=== PATIENT | female | born 2005 | race Caucasian/White ===

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

== ENCOUNTER 2024-04-25 16:44 | Emergency (ER) | payer OTHER, MEDICAID, SELFPAY ==
--- NOTE | ~2024-04-25 | US_ITS ---
CLINICAL HISTORY: back pain ?pyelo US Renal Comparison: None Findings: Right kidney normal size and echotexture, 10.2 cm length. Left kidney normal size and echotexture, 10.1 cm length. No hydronephrosis of either kidney. Normal color Doppler IMPRESSION: 1. Unremarkable kidneys bilaterally. This document has been electronically signed by: Antwon Joe MD on 04/25/2024 19:21:39
[2024-04-25 17:29] VITALS: BP 132/84; PULSE 96; RESP 18; TEMP 36.8; O2SAT 100; BMI 21.2
--- NOTE | 2024-04-25 17:29 | ED.FEMALEGU ---
HPI - Female Genitourinary General Chief complaint: Urogenital-Female Stated complaint: uti Time Seen by Provider: 04/25/24 22:35 Source: patient and RN notes reviewed Mode of arrival: ambulatory Limitations: no limitations History of Present Illness ED Provider: [facility] Narrative: 18 year old female presents for evaluation of vaginal discharge and left flank pain She reports having yellow/green discharge since December 2023. She reports malodorous discharge without vaginal pruritis or dysuria She is not currently sexually active. The last time she had intercourse was in December 2023. She was seen at an urgent care on 03/29/24 and was treated for a UTI with nitrofurantoin which didn't resolve her symptoms. She returned to urgent care on 04/06/24 and was prescribed fluconazole and metronidazole for bacterial vaginosis. She began taking metronidazole yesterday, 04/25 Related Data Home Medications ?Medication ?Instructions ?Recorded ?Confirmed azithromycin 250 mg tablet 250 mg PO DIRECTED 12/17/23 Previous Rx's ?Medication ?Instructions ?Recorded ondansetron HCl 4 mg tablet 4 mg PO Q8H PRN nausea and 03/16/23 vomiting 4 days #14 tabs doxycycline hyclate 100 mg tablet 100 mg PO BID #28 tabs 04/26/24 Allergies Allergy/AdvReac Type Severity Reaction Status Date / Time No Known Allergies Allergy Verified 04/25/24 17:32 Review of Systems Constitutional: Constitutional: Denies chills and Denies fever(s) Gastrointestinal: Gastrointestinal: Reports abdominal pain, Reports bloating, Denies nausea and Denies vomiting Genitourinary: Genitourinary: Denies hematuria, Denies dysuria, Reports pelvic pain, Reports flank pain, Reports vaginal discharge (yellow/green), Reports vaginal odor and Denies vaginal pruritus PMFSH Past Medical History Medical History No known health problems Social History Social History Alcohol intake: never Patient Tobacco Use Status: Current someday Tobacco user Smoked in Last 30 Days: No Use of substances other than those prescribed or required for medical reasons: Yes Substance Use Type: Marijuana Advance Directives: No Advance Directives Information Provided: No Patient : No Physical Exam Vital Signs: Vital Signs: Last Vital Signs Temp 98.3 F 04/25/24 17:29 Pulse 96 04/25/24 17:29 Resp 18 04/25/24 17:29 BP 132/84 04/25/24 17:29 Pulse Ox 100 04/25/24 17:29 O2 Del Method Room Air 04/25/24 17:29 BMI result Body Mass Index 21.2 Const: General: healthy appearing, comfortable, no acute distress, alert and awake Nutritional Appearance: well nourished Orientation/consciousness: patient oriented x3 HEENT: Head: Yes normocephalic and Yes atraumatic Eyes: Alignment and Position: alignment normal Eyelids: Yes eyelids normal Conjunctivae: conjunctivae normal Sclerae: sclerae normal Corneas: corneas normal Pupils: Equal, round and reactive pupils present EOM: EOMs intact bilaterally Resp: Effort & Inspection: normal respiratory effort and able to speak in complete sentences GI: Inspection: No distended Palpation (GI): Soft to palpation, not firm, nontender, no guarding and not rigid : Other: Yellow discharge present from cervix. Cervix is nonerythematous. Cervical motion tenderness present. No masses palpated on bimuanal exam. CVA tenderness to left flank. Neuro: General: patient oriented x3 Cranial nerves: Yes Equal, round and reactive pupils present and Yes Bilaterally intact EOM present Cognition (Neuro): normal cognition Course Course Course Narrative: This is a Rapid Medical Exam performed in triage by Cora Rubi PA-C. Full HPI, ROS and PE to be performed by primary ED provider. 18-year-old female presenting to the ED c/o dysuria, incomplete bladder emptying, back pain & mucsy vaginal d/c (green). States has been on Abx recently for same and sx not going away. Admits had STI testing which was negative. Currently on Flagyl PE: abd soft & nontender, +L CVAT Plan: Labs, UA, STI testing, US Medications Administered Discontinued Medications Generic Name Dose Route Start Last Admin Trade Name Freq PRN Reason Stop Dose Admin Ceftriaxone Sodium 500 mg/ 0 mg 04/25/24 23:34 04/26/24 00:00 Lidocaine HCl 1 ml IM 04/25/24 23:35 1 kit ONCE ONE Administration Doxycycline Monohydrate 100 mg 04/25/24 23:34 04/26/24 00:00 Doxycycline Monohydrate 100 Mg Capsule PO 04/25/24 23:35 100 mg ONCE ONE Administration Medical Decision Making Medical Decision Making [facility] Narrative: 18-year-old female presents for evaluation of pelvic pain with vaginal discharge. She was previously been treated for BV, candidiasis and a UTI in the last few weeks. It does not seem like she was compliant with her medications as she was prescribed the Flagyl over to cyst. It is unclear if she was compliant with her nitrofurantoin. However given that she has been on multiple treatments despite not having any pelvic exam, pelvic examination was performed by Lucita Henderson under my supervision. Clinically the patient has cervical motion tenderness with discharge concerning for PID and she will be treated accordingly. I discussed the importance of taking all the medication with the patient. She is not septic, she has no adnexal tenderness or masses to suggest tubo-ovarian abscess. She was stable for discharge at this time Differential Diagnosis Differential Diagnoses: The differential diagnosis associated with the presentation includes Pelvic inflammatory disease Chlamydia Gonorrhea Bacterial vaginosis Trichomonas Cystitis Lab Data [facility] Lab Attestation statement: I reviewed the patient's lab results. No leukocytosis or anemia. Normal platelet count. No electrolyte abnormalities. Urinalysis not indicative of UTI 04/25/24 17:54 04/25/24 17:54 Labs: Lab Results 04/25/24 Range/Units 17:54 WBC 10.8 (4.8-10.8) X10*3/uL RBC 4.55 (4.20-5.50) X10*6/uL Hgb 13.6 (12.0-16.0) g/dl Hct 40.7 (37.0-47.0) % MCV 89.5 (80.0-98.0) fL MCH 29.9 (27.0-33.0) pg MCHC 33.4 (31.0-35.0) g/dl RDW 11.8 (11.0-16.0) % Plt Count 320 (160-400) X10*3/uL MPV 8.9 L (9.4-12.3) fL Immature Gran % (Auto) 0.3 (0.0-0.4) % Neut % (Auto) 77.5 H (45-73) % Lymph % (Auto) 17.0 L (20-40) % [place] % (Auto) 4.1 (2-11) % Eos % (Auto) 0.5 (0-4) % Baso % (Auto) 0.6 (0-2) % Lymph # (Auto) 1.8 (1.2-4.9) X10*3/uL [place] # (Auto) 0.4 (0.1-1.2) X10*3/uL Eos # (Auto) 0.1 (0.0-0.4) X10*3/uL Baso # (Auto) 0.1 (0.0-0.2) X10*3/uL Abs Immat Gran (auto) 0.03 (0.00-0.03) X10*3/uL Absolute Neuts (auto) 8.4 H (2.0-8.3) x10*3/uL Absolute Nucleated RBC 0.000 (0.0-0.012) X10*3/uL Nucleated RBC % (auto) 0.0 (0.0-0.2) /100WBC Sodium 139 (135-145) mmol/L Potassium 3.9 (3.3-5.1) mmol/L Chloride 104 (96-108) mmol/L Carbon Dioxide 26 (22-29) mmol/L Anion Gap 13 (12-20) BUN 9 (9-16) mg/dL Creatinine 0.70 (0.5-1.4) mg/dL Estim Creat Clear Calc 106.9 Estimated GFR > 60 Random Glucose 111 (60-115) mg/dL Calcium 9.5 (8.4-10.2) mg/dL Magnesium 1.9 (1.6-2.6) mg/dL Total Bilirubin 0.8 (0.0-1.0) mg/dL Direct Bilirubin 0.3 (0.0-0.5) mg/dL AST 33 H (5-31) U/L ALT 37 H (0-31) U/L Alkaline Phosphatase 81 (39-117) U/L Total Protein 7.8 (6.5-8.0) g/dL Albumin 4.3 (3.5-5.0) g/dL Lipase 20 (8-78) U/L Urine Color Yellow Urine Appearance Clear Urine pH 7.0 (5.0-9.0) Ur Specific [place] 1.020 (1.005-1.025) Urine Protein Negative (Neg-Trace) mg/dL Urine Glucose (UA) Negative (Negative) mg/dL Urine Ketones Negative (Negative) mg/dL Urine Blood Negative (Negative) Urine Nitrite Negative (Negative) Ur Leukocyte Esterase Trace H (Negative) Urine RBC 0-2 (0-2) /HPF Urine WBC 0-5 (0-5) /HPF Ur Squamous Epith Cells 0-2 (0-2) /HPF Urine Bacteria None Seen (None Seen) Hyaline Casts 0-2 (0-2) /LPF Urine Test NEGATIVE (NEGATIVE) Discharge Plan Discharge Clinical Impression: Acute pelvic inflammatory disease (PID) Patient Disposition: Home, Self-Care Instructions: Pelvic Inflammatory Disease (ED) Additional Instructions: Your history exam is most consistent with pelvic inflammatory disease. I recommend that you finish the metronidazole that you were prescribed You were given ceftriaxone 500 mg IM injection which is a 1 time dose. Take doxycycline twice daily for the next 2 weeks You should abstain from sexual intercourse until you completely antibiotics Follow-up with your primary doctor as well as OBGYN Return for new or worsening symptoms Prescriptions: New doxycycline hyclate 100 mg tablet 100 mg PO BID Qty: 28 0RF No Action ondansetron HCl 4 mg tablet 4 mg PO Q8H PRN (Reason: nausea and vomiting) 4 Days Qty: 14 0RF azithromycin 250 mg tablet 250 mg PO DIRECTED Referrals: Franyd Ramirez MD [Physician] - (PID) Print Language: Moroccan
[2024-04-25 18:08] LABS: MANUAL DIFF FLAG NO
[2024-04-25 18:09] LABS: Basophils Absolute Auto 0.1 X10*3/uL (0.0-0.2); Basophils Percent Auto 0.6 % (0-2); Eosinophils Absolute Auto 0.1 X10*3/uL (0.0-0.4); Eosinophils Percent Auto 0.5 % (0-4); Hematocrit 40.7 % (37.0-47.0); Hemoglobin 13.6 g/dl (12.0-16.0); Imm Gran Abs Auto 0.03 X10*3/uL (0.00-0.03); Imm Gran Pct Auto 0.3 % (0.0-0.4); Lymphocytes Absolute Auto 1.8 X10*3/uL (1.2-4.9); Mean Corpuscular HGB Conc 33.4 g/dl (31.0-35.0); Mean Corpuscular Hemoglobin 29.9 pg (27.0-33.0); Mean Corpuscular Volume 89.5 fL (80.0-98.0); Mean Platelet Volume 8.9 fL (9.4-12.3); Monocytes Absolute Auto 0.4 X10*3/uL (0.1-1.2); Monocytes Percent Auto 4.1 % (2-11); Neutrophils Absolute Auto 8.4 x10*3/uL (2.0-8.3); Neutrophils Percent Auto 77.5 % (45-73); Platelet Count 320 X10*3/uL (160-400); Red Blood Count 4.55 X10*6/uL (4.20-5.50); Red Cell Distribution Width 11.8 % (11.0-16.0); White Blood Count 10.8 X10*3/uL (4.8-10.8)
[2024-04-25 18:11] LABS: Appearance Urine Clear; Color Urine Yellow; Glucose Urine UA Negative (Negative); Leukocyte Esterase Urine Trace (Negative); Nitrite Urine Negative (Negative); UMIC TRIGGER UACC YES; Urine Blood Negative (Negative); Urine Ketones Negative (Negative); Urine Protein Negative (Neg-Trace)
[2024-04-25 18:12] LABS: UPreg QC Valid YES; Urine Pregnancy NEGATIVE (NEGATIVE)
[2024-04-25 18:16] LABS: Bacteria Urine None Seen (None Seen); Hyaline Casts Urine 0-2 /LPF (0-2); RBC Urine 0-2 /HPF (0-2); Squamous Epithelial Cell Urine 0-2 /HPF (0-2); WBC Urine 0-5 /HPF (0-5)
[2024-04-25 18:24] LABS: Albumin Level 4.3 g/dL (3.5-5.0); Alkaline Phosphatase 81 U/L (39-117); Anion Gap 13 (12-20); Aspartate Amino Transferase 33 U/L (5-31); Bilirubin Direct 0.3 mg/dL (0.0-0.5); Bilirubin Total 0.8 mg/dL (0.0-1.0); Blood Urea Nitrogen 9 mg/dL (9-16); Calcium 9.5 mg/dL (8.4-10.2); Carbon Dioxide 26 mmol/L (22-29); Chloride 104 mmol/L (96-108); Creatinine Clr Calc Pharmacy 106.9; Estimated Glomerular Filt Rate > 60; Glucose Random 111 mg/dL (60-115); Lipase 20 U/L (8-78); Magnesium 1.9 mg/dL (1.6-2.6); Potassium 3.9 mmol/L (3.3-5.1); Sodium 139 mmol/L (135-145); Total Protein 7.8 g/dL (6.5-8.0)
[2024-04-25 18:35] LABS: Alanine Aminotransferase 37 U/L (0-31)
--- OUTSIDE RECORDS SUMMARY | 2024-04-25 20:46 | XMS_ITS | Encounter Summary ---
Author Organization [employer] Address [address] [place] [address] Care Team Providers Care Wax Specialist Name Role Phone Marilia Castillo MD Primary Care Provider [phone] Reason for Visit * Reason Onset Date Comments Med Refill 07/01/2023 Encounter Details Date Type Department Care Team (Late st Contact Info) Description 07/01/2023 Refill [facility] [address] [place] [address] Maggie Gonzalez MD [address] [place], [place] [phone] Social History Tobacco Use Types Packs/Day Years Used Date Smoking Tobacco: Never Passive Smoke Exposure: Never Smokeless Tobacco: Never Alcohol Use Standard Drinks/Week Comments Never 0 (1 standard drink = 0.6 oz pur e alcohol) Depression Answer Date Recorded Patient Health Questionnaire-9 Score 0 03/27/2023 Patient Health Questionnaire-9 Score 0 03/27/2023 Last PHQ-9: Questionnaire Data Not on file 0 03/27/2023 Housing Stability Answer Date Recorded What is your housing situation today? I have radha fatima 12/30/[address] you li ve. Do you have problems with any of the following? None of the above 12/30/2022 Food Insecurity Answer Date Recorded Within the past 12 months, y ou worried that your food would run out before you got money to buy more: Never True 12/30/2022 Within the past 12 months,th e food you bought just didn't last and you didn't have enough money to get more: Never True Transportation Answer Date Recorded In the past 12 months, has l ack of transportation kept you from medical appts, meetings, work or from getting things needed for daily living? No 12/30/2022 Utilities Answer Date Recorded In the past 12 months, has t he electric, gas, oil or water company threatened to shut off services in your home? No 12/30/2022 Depression Answer Date Recorded Patient Health Questionnaire-2 Score 0 03/27/2023 Comments Unknown Sex and Gender Information Value Date Recorded Sex Assigned at Female 12/05/2022 1:28 PM EDT Legal Sex Female 1:24 PM EDT Gender Identity Female 12/05/2022 1:28 PM EDT Sexual Orientation Don't know 01/01/2023 2: 23 PM EDT documented as of this encounter Plan of Treatment Upcoming Encounters Date Type Department Care Team (Late st Contact Info) Description 05/17/2024 1:00 PM EDT Office Visit [facility] [address] [place] [address] Marilia Castillo MD [address] [place] [address] documented as of this encounter Visit Diagnoses Not on filedocumented in this encounter Additional Health Concerns Assessment Noted Time PHQ-9 Depression Total Score: 0 03/27/19 9:28 AM EST documented as of this encounter Care Teams Wax Specialist Relationship Specialty Start Date End Date Marilia Castillo MD [address] [place] [id number] PCP - General Family Medicine 03/27/23 documented as of this encounter
--- OUTSIDE RECORDS SUMMARY | 2024-04-25 20:46 | XMS_ITS | Encounter Summary ---
Author Organization [facility] Address [address] [place] [phone] Phone Care Team Providers Care Vice Principal Name Role Phone Tiffanie Caputo NP Primary Care Provider Jane horton Encounter Details Date Type Department Care Team (Late st Contact Info) Description 06/25/2013 Documentation [facility] Family Medicine [address] [place] [address] Family Medicine, Physician [facility] [address] Social History Tobacco Use Types Packs/Day Years Used Date Smoking Tobacco: Never Assessed Comments Unknown Sex and Gender Information Value Date Recorded Sex Assigned at Not on file Legal Sex Female 5:15 PM EDT Gender Identity Not on file Sexual Orientation Not on file documented as of this encounter Plan of Treatment Not on file documented as of this encounter Visit Diagnoses Not on filedocumented in this encounter Care Teams Vice Principal Relationship Specialty Start Date End Date Tiffanie Caputo NP PCP - General 10/18/16 06/19/22 documented as of this encounter
--- OUTSIDE RECORDS SUMMARY | 2024-04-25 20:46 | XMS_ITS | Encounter Summary ---
Author Organization [facility] Address [address] [place] [address] Phone Care Team Providers Care Engineer Technical Staff Name Role Phone Tiffanie Caputo NP Primary Care Provider Jane horton Encounter Details Date Type Department Care Team (Late st Contact Info) Description 07/28/2009 Documentation [facility] Family Medicine [address] [place] [address] Family Medicine, Physician [address] [place] [address] Social History Tobacco Use Types Packs/Day Years [...] on filedocumented in this encounter Care Teams Engineer Technical Staff Relationship Specialty Start Date End Date Tiffanie Caputo NP PCP - General 10/18/16 06/19/22 documented as of this encounter
--- OUTSIDE RECORDS SUMMARY | 2024-04-25 20:46 | XMS_ITS | Encounter Summary ---
Author Organization [facility] Address [address] [place] [address] Phone Care Team Providers Care Early Breastfeeding Care Specialist Name Role Phone Tiffanie Caputo [employer] Primary Care Provider Jane horton Encounter Details Date Type Department Care Team (Late st Contact Info) Description 10/24/2016 Conversion Encounter [facility] - [address] [address] Social History Tobacco Use Types Packs/Day Years Used Date Smoking Tobacco: Never Comments:Never smoker Comments Unknown Sex and Gender Information Value Date Recorded Sex Assigned at Not on file Legal Sex Female 5:15 PM EDT Gender Identity Not on file Sexual Orientation Not on file documented as of this encounter Plan of Treatment Not on file documented as of this encounter Visit Diagnoses Not on filedocumented in this encounter Care Teams Early Breastfeeding Care Specialist Relationship Specialty Start Date End Date Tiffanie Caputo NP PCP - General 10/18/16 06/19/22 documented as of this encounter
--- OUTSIDE RECORDS SUMMARY | 2024-04-25 20:46 | XMS_ITS | Clinical Summary ---
Author Organization [employer] Address [address] [facility] 7[address] [place] [address] Care Team Providers Care Drawer In Name Role Phone Marilia Castillo MD Primary Care Provider [phone] Allergies Active Allergy Reactions Criticality Noted Date Comments Other 12/04/2016 Cat dander, dog dander, feathers, mold, ragweed, and rabbits Medications tretinoin (Retin-A) 0.025 % cream Apply topically at bedtime. 45 g 2 4 05/21/19 25 Active valACYclovir (Valtrex) 1 g tablet Take 2 tablets two times for 1 day at earliest sign and symptom onset 12 tablet 1 4 Active FLUoxetine (PROzac) 10 MG capsule 4 Active triamcinolone (Kenalog) 0.1 % creamIndications :Insect bite of ankle, unspecified laterality, initial encounter Apply to affected area BID till improved. 30 g 4 Active benzoyl peroxide 5 % gelIndications:A cne vulgaris Apply topically 2 times daily. 60 g 2 4 09/08/19 25 Active Active Problems Problem Noted Date Diagnosed Date Pertussis exposure 12/16/2023 Assessment & Plan (12/16/2023 10:43 AM EDT): Reports exposure to Pertussis. Will treat with abx empirically. -sent off antigen testing. -prescribed Azithromycin 500 mg BID the first day and then once daily till course completed. -recommended tea, honey and vics for coughing/soothing throat. Acute upper respiratory infection 12/16/2023 Assessment & Plan (12/16/2023 10:43 AM EDT): COVID, Flu and Strep negative. Reports exposure to Pertussis. Will treat with abx empirically. No evidence of respiratory distress. Symptoms mild. No evidence of dehydration. -prescribed Azithromycin 500 mg BID the first day and then once daily till course completed. -Supportive care advised. -Isolation recommendations discussed. -note given for work/school. -ER precautions discussed. -Seek medical attention for worsening symptoms. 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 Valacyclovir 2 g bid for 1 day at earliest symptom onset. If it is refractory, will change to suppressive medication. Fatigue 03/28/2023 Assessment & Plan (07/02/2023 9:50 AM EDT): - check lab Assessment & Plan (03/28/2023 11:20 AM EST): - check lab Acne 03/28/2023 Assessment & Plan (07/02/2023 10:28 AM EDT): - seen in Derm clinic and prescribed OCP and tretinoin. - upcoming follow up appointment in August 2023, will request a sooner appt Assessment & Plan (03/28/2023 11:20 AM EST): - refer to Derm clinic Hair thinning 03/28/2023 Assessment & Plan (07/02/2023 10:28 AM EDT): - following with Derm clinic Assessment & Plan (03/28/2023 11:21 AM EST): - no bald spots or scarring - continue well-balanced diet - use hypoallergenic hair care product - check thyroid funciton - refer to derm clinic Irregular menstruation 03/28/2023 Assessment & Plan (07/02/2023 10:30 AM EDT): - she is not overweight, but possible PCOS - 04/24/23 Pelvic US normal - she was seen in Derm clinic, and started on OCP. Patient self-discontinued it. Assessment & Plan (03/28/2023 11:23 AM EST): - she is not overweight, but possible PCOS - check thyroid function test - consider further evaluation with pelvic US Encounters Date Type Department Care Team Description 02/15/2024 Refill [facility] [address] [place], [place] [phone] Maggie Gonzalez MD from Last 3 Months Immunizations Name Administration Dates Next Due DTaP 05/19/2006 DTaP / Hep B / IPV 04/25/2005,02/12/2005, 005 DTaP, 5 pertussis antigens 01/19/2009,,04/25/2005,02/12,2004 HPV 9-Valent 08/31/2020, 7,12/22/2015,10/16,01/19/2009 HPV, Quadrivalent 08/31/2020, 7,12/22/2015,10/16,01/19/2009 Hep A, Unspecified 07/20/2013,07/30/2010 Hep A, ped/adol, 2 dose 07/20/2013,07/30/2010 Hep B, Adolescent or Pediatric 04/25/2005,2004,2004 Hep B, adult 07/28/2023,06/30/2023 Hib (PRP-OMP) 02/24/2009, 6,02/12/2005,12/13 Hib (PRP-T) 01/28/2006, 6,02/12/2005,12/13 IPV 01/19/2009, 9,04/25/2005,02/12,2004 Influenza injectable quadriv alent IIV4 with preservative 12/22/2015 Influenza injectable quadriv alent preservative free 12/16/2018,11/30/2013 Influenza, IIV3, injectable 12/16/2018,1 ,02/24/2009,12/14,01/28/2006 MMR 01/19/2009,10/25/2005 MMRV 01/19/2009 Meningococcal ACWY, unspecified 10/17/2015 Meningococcal MCV4P ACYW-135 10/17/2015 Novel Burrejejw-N2P0-02, all formulations 02/24/2009,01/19/2009 Pneumococcal Conjugate PCV 13 01/19/2009 ,04/25/2005,02/12/2005,12/13 Pneumococcal Conjugate PCV 7 01/28/2006, 04/25/2005,02/12/2005,12/13 Tdap 08/31/2020,10/17/2015 Varicella 01/19/2009,10/25/2005 Social History Tobacco Use Types Packs/Day Years Used Date Smoking Tobacco: Never Passive Smoke Exposure: Never Smokeless Tobacco: Never Tobacco Cessation:Counseling Given: Not Answered Alcohol Use Standard Drinks/Week Comments Never 0 [...] Patient Health Questionnaire-2 Score 0 03/27/2023 Comments No Sex and Gender Information Value Date Recorded Sex Assigned at Female 12/05/2022 1:28 PM EDT Legal Sex Female 1:24 PM EDT Gender Identity Female 12/05/2022 1:28 PM EDT Sexual Orientation Don't know 01/01/2023 2: 23 PM EDT Last Filed Vital Signs Vital Sign Reading Time Taken Comments Blood Pressure 114/71 12/16/2023 10:28 AM EDT Pulse 82 12/16/2023 10:28 AM EDT Temperature 36.4 ??C (97.6 ??F) 12/16/2023 10:28 AM E DT Respiratory Rate 20 12/16/2023 10:28 AM EDT Oxygen Saturation 100% 12/16/2023 10:28 AM EDT Inhaled Oxygen Concentration - - Weight 55.8 kg (123 lb) 12/16/2023 10:28 AM EDT Height 162.6 cm (5' 4 ) 12/16/2023 10:28 AM EDT Body Mass Index 21.11 12/16/2023 10:28 AM EDT Plan of Treatment Upcoming Encounters Date Type Department Care Team (Late st Contact Info) Description 05/17/2024 1:00 PM EDT Office Visit [facility] [address] [place] [address] Marilia Castillo MD [address] [place] [address] Health Maintenance Due Date Last Done Comments Fluoride Varnish 06/11/2005 Alcohol/Substance Use Screening 2016 COVID-19 Vaccine ( season) 2023 Influenza Vaccine (#1) 2023 9, 12/16/2018, 12/22/2015, Additional history exists SDOH Screening 03/19/2024 03/19/2023 Depression Screening 03/27/2024 03/27/2023, 03/27/19 24 Chlamydia and Gonorrhea Screening 09/28/2024 09/29/2023, 03/27/2023 Family Planning (PISQ) 09/30/2024 10/01/2023 Tobacco Screening 12/15/2024 12/16/2023 DTaP/Tdap/Td Vaccines (8 - Td or Tdap) 08/31/2030 08/31/2020, 10/17/2015, 01/19/2009, Additional history exists Zoster Vaccines (1 of 2) 2054 RSV Patients and Patients Aged 60 years or older (1 - 1-dose 75+ series) 10/12/2079 IPV Vaccines Completed 01/19/2009, 01/08, 04/25/2005, Additional history exists MMR Vaccines Completed 01/19/2009, 01/08, 10/25/2005 Pneumococcal Vaccine: Pediatrics (0 to 5 Years) and At-Risk Patients (6 to 49) Years) Completed 01/19/2009, 01/28/2006, 04/25/2005, Additional history exists Varicella Vaccines Completed 01/19/2009, 1 03/21/2008, 10/25/2005 HIB Vaccines Completed 02/24/2009, 01/09, 01/28/2006, Additional history exists Hepatitis A Vaccines Completed 07/20/2013, 07/20/2013, 07/30/2010, Additional history exists Meningococcal Vaccine Aged Out 10/17/2015, 016 No longer eligible based on patient's age to complete this topic HPV Vaccines Completed 08/31/2020, 08/09, 04/25/2016, Additional history exists HIV Screening Completed 03/27/2023 Hepatitis C Screening Completed 03/27/2023 Hepatitis B Vaccines Completed 07/28/2023, 06/30/2023, 04/25/2005, Additional history exists RSV under 20 months Aged Out No longe r eligible based on patient's age to complete this topic Rotavirus Vaccines Aged Out No longer eligible based on patient's age to complete this topic Procedures Procedure Name Priority Date/Time Associated Diagnosis Comments CHLAMYDIA/N. GONORRHOEAE RNA, TMA, UROGENITAL Routine 09/29/2023 5:50 PM EDT Missed periods HEPATITIS C AB W/REFL TO HCV RNA, QN, PCR Routine 03/27/2023 10:37 AM EST Routine screening for STI (sexually transmitted infection) HIV 1/2 ANTIGEN/ANTIBODY, FOURTH GENERATION W/RFL Routine 03/27/2023 10:37 AM EST Routine screening for STI (sexually transmitted infection) from Last 3 Months or Most Recently Relevant to Health Maintenance Results * Chlamydia/N. Gonorrhoeae RNA, TMA, Urogenitial (09/29/2023 5:50 PM EDT) CT PCR NOT DETECTED Not Detect. [facility] Comment:A not detected test result does not exclude the possibilityof infection because test results can be affected byimproper specimen collection, concurrent antibiotic therapy,or the number of organisms in the specimen which may bebelow the sensitivity of the test. As with many diagnostictests, results from the Xpert CT/NG assay should beinterpreted in conjunction with other laboratory andclinical data available to the clinician.Xpert CT/NG performance has not been evaluated in patientsless than 14 years of age. The assay should not be used forthe evaluationof suspected sexual abuse or for other medico-legalindications. Additional testing is recommended in anycircumstance when false positive or false negative resultscould lead to adverse medical, social or psychologicalconsequences. NG PCR NOT DETECTED Not Detect. [facility] Comment:A not detected test result does not exclude the possibilityof infection because test results can be affected byimproper specimen collection, concurrent antibiotic therapy,or the number of organisms in the specimen which may bebelow the sensitivity of the test. As with many diagnostictests, results from the Xpert CT/NG assay should beinterpreted in conjunction with other laboratory andclinical data available to the clinician.Xpert CT/NG performance has not been evaluated in patientsless than 14 years of age. The assay should not be used forthe evaluationof suspected sexual abuse or for other medico-legalindications. Additional testing is recommended in anycircumstance when false positive or false negative resultscould lead to adverse medical, social or psychologicalconsequences. Swab (Vaginal Swab) 09/29/2023 5:50 PM EDT 09/30/2023 1:50 PM EDT Narrative [facility] - 09/30/2023 1:51 PM EDT Vaginal us Katelyn Veloz MD LAB MICROBIOLOGY - GENERAL OR DERABLES Final Result Performing Organization Address [facility] Co de Phone Number [facility] [address] [place] [phone] * Hepatitis C Antibody with Reflex to HCV, RNA, Quantitative, Real-Time PCR (03/27/2023 10:37 AM EST) Hepatitis C Antibody Nonreactive Nonreactive [facility] Comment:Antibodies to HCV no t detected; does not exclude early acuteHCV infection. Blood Venous blood specimen / Unknown 03/27/2023 10:37 AM EST 03/27/2023 11:48 AM EST us Marilia Castillo MD LAB BLOOD ORDERABLES Final Resul t Performing Organization Address [facility] Co de Phone Number [facility] [address] [place] [phone] * HIV-1/2 Antigen and Antibodies, Fourth Generation, with Reflexes (03/27/2023 10:37 AM EST) HIV AB/AG Nonreactive Nonreactive [facility] Comment:HIV-1 p24 Ag and/or HIV-1/HIV-2 Ab not detected.A test result that is nonreactive does not exclude thepossibility of exposure to or infection with HIV-1 and/orHIV-2. Nonreactive results in this assay for individualswith prior exposure to HIV-1 and/or HIV-2 may be due toantigen and antibody levels that are below the limit ofdetection of this assay.The [employer] HIV Ag/Ab Combo assay result andsupplemental assay results should be interpreted inconjunction with the patient's clinical presentation,history and other laboratory results. If the results areinconsistent with clinical evidence, additional testing issuggested to confirm the result. Blood Venous blood specimen / Unknown 03/27/2023 10:37 AM EST 03/27/2023 11:48 AM EST Marilia Castillo MD LAB BLOOD ORDERABLES Final Resul t [facility] [address] [place] [phone] [phone] from Last 3 Months or Most Recently Relevant to Health Maintenance Insurance [facility] , [address] [place], [place] [id number] [place] [address] Care Teams Drawer In Relationship Specialty Start Date End Date Marilia Castillo MD [address] [place] [phone] PCP - General Family Medicine 03/27/23
--- OUTSIDE RECORDS SUMMARY | 2024-04-25 20:46 | XMS_ITS | Encounter Summary ---
Author Organization [employer] Address [address] [facility] [address] [place] [address] Care Team Providers Care Crossbar Switch Adjuster Name Role Phone Marilia Castillo MD Primary Care Provider [phone] Reason for Visit * Reason Comments Med Refill Encounter Details Date Type Department Care Team ([facility] st Contact Info) Description 02/15/2024 Refill [facility] [address] [place] [address] Maggie Gonzalez MD [address] [place], [place] [phone] Social History Tobacco Use Types Packs/Day Years [...] Description 05/17/2024 1:00 PM EDT Office Visit [facility] [address] [place] [address] Marilia Castillo MD [address] [place] [address] documented as of this encounter Visit Diagnoses Not on filedocumented in this encounter Additional Health Concerns Assessment Noted Time PHQ-9 Depression Total Score: 0 03/27/19 24 9:28 AM EST documented as of this encounter Care Teams Crossbar Switch Adjuster Relationship Specialty Start Date End Date Marilia Castillo MD [address] [place] [phone] PCP - General Family Medicine 03/27/23 documented as of this encounter
--- OUTSIDE RECORDS SUMMARY | 2024-04-25 20:46 | XMS_ITS | Encounter Summary ---
Author Organization [employer] Address [address] [place] [address] Care Team Providers Care Ems Coordinator Name Role Phone Marilia Castillo MD Primary Care Provider [phone] Reason for Visit * Reason Onset Date Comments Error 07/07/2023 Encounter Details Date Type Department Care Team ([facility] st Contact Info) Description 07/07/2023 Telephone [facility] [address] [place] [address] Marilia Castillo MD [address] [place], [place] [phone] Error Social History Tobacco Use Types Packs/Day Years [...] Description 05/17/2024 1:00 PM EDT Office Visit [facility] [address] [place] [address] Marilia Castillo MD [address] [place] [address] documented as of this encounter Visit Diagnoses Not on filedocumented in this encounter Additional Health Concerns Assessment Noted Time PHQ-9 Depression Total Score: 0 03/27/19 24 9:28 AM EST documented as of this encounter Care Teams Ems Coordinator Relationship Specialty Start Date End Date Marilia Castillo MD [address] [place] [phone] PCP - General Family Medicine 03/27/23 documented as of this encounter
--- OUTSIDE RECORDS SUMMARY | 2024-04-25 20:46 | XMS_ITS | Encounter Summary ---
Author Organization [email or web address] Address [address] [place] [address] Care Team Providers Care Info Analyst Name Role Phone Marilia Castillo MD Primary Care Provider [phone] Encounter Details Date Type Department Care Team (Late st Contact Info) Description 03/29/2023 Orders Only [facility] [address] [place], [place] [phone] Marilia Castillo MD [address] [place], [place] [phone] Irregular menstruation (Primary Dx) Social History Tobacco Use Types Packs/Day Years Used Date Smoking Tobacco: Never Passive Smoke Exposure: Never Smokeless Tobacco: Never Depression Answer Date Recorded Patient Health Questionnaire-9 [...] Description 05/17/2024 1:00 PM EDT Office Visit [facility] [address] [place], [place] [phone] Marilia Castillo MD [address] [place], [place] [phone] documented as of this encounter Procedures Procedure Name Priority Date/Time Associated Diagnosis Comments CBC WITH AUTO DIFFERENTIAL Routine 05/16/2023 5:03 AM EST Irregular menstruation HCG, QL, URINE Routine 05/16/2023 5:03 AM EST Irregular menstruation URINALYSIS WITH REFLEX MICROSCOPIC Routine 05/16/2023 5:03 AM EST Irregular menstruation LIPASE Routine 05/16/2023 5:03 AM EST Irregular menstruation HEPATIC FUNCTION PANEL Routine 05/16/2023 5:03 AM EST Irregular menstruation BASIC METABOLIC PANEL Routine 05/16/2023 5:03 AM EST Irregular menstruation US PELVIS TRANSVAGINAL Routine 04/24/2023 12:01 PM EST documented in this encounter Results * Lipase (05/16/2023 5:03 AM EST) Lipase 30 8 - 78 U/L [facility] 05/16/2023 5:03 AM EST 05/16/2023 5:07 AM EST Generic External Data Provider LAB BLOOD ORDERAB LES Final Result Performing Organization Address [facility] [place] de Phone Number [facility] [address] [place] [phone] * Hepatic Function Panel (05/16/2023 5:03 AM EST) [facility] Bilirubin, Total 0.4 0.0 - 1.0 mg/dL [facility] Bilirubin, Direct 0.1 0.0 - 0.5 mg/dL [facility] Aspartate Amino Transferase 20 5 - 31 U/L [facility] Alanine Aminotransferase 18 0 - 31 U/L [facility] Total Protein 7.1 6.5 - 8.0 g/dL [facility] Albumin Level 4.0 3.5 - 5.0 g/dL [facility] Alkaline Phosphatase 87 39 - 117 U/L [facility] 05/16/2023 5:03 AM EST 05/16/2023 5:07 AM EST Personal Estate Manager External Data Provider LAB BLOOD ORDERAB LES Final Result Performing Organization Address [facility] Phone Number [facility] [address] [place] [phone] * (ABNORMAL) Basic Metabolic Panel (05/16/2023 5:03 AM EST) Pathologist [facility] Sodium 141 135 - 145 mmol/L [facility] Potassium 3.9 3.3 - 5.1 mmol/L [facility] Chloride 105 96 - 108 mmol/L [facility] Carbon Dioxide 29 22 - 29 mmol/L [facility] Anion Gap 11(L) 12 - 20 [facility] Urea Nitrogen (BUN) 14 9 - 16 mg/dL [facility] Creatinine, Serum 0.67 0.5 - 1.4 mg/dL [facility] Creatinine Clr Calc Pharmacy TNP [facility] Comment:Cannot be calculated ; patient is less than 19 years old. Estimated Glomerular Filt Rate >60 [facility] Comment:NOTE: For -Am erican individuals, multiply the result by 1.210.Chronic Kidney Disease: Estimated GFR < 60 mL/min/1.24h5Pgazdt Kidney Disease: Estimated GFR < 15 mL/min/1.73m2 Glucose 88 60 - 115 mg/dL [facility] Calcium 9.3 8.4 - 10.2 mg/dL [facility] 05/16/2023 5:03 AM EST 05/16/2023 5:07 AM EST us Generic External Data Provider LAB BLOOD ORDERAB LES Final Result Performing Organization Address [facility]/ZIP Co de Phone Number [facility] [address] [place] [phone] * HCG, Qualitative, Urine (05/16/2023 5:03 AM EST) Urine NEGATIVE NEGATIVE [facility] Comment:This test was develo ped to detect early . Falsenegative results may occur after the 5th - 7th week ofpregnancy when using this test method. If clinicallyindicated, consider a serum hCG. 05/16/2023 5:03 AM EST 05/16/2023 5:07 AM EST us Generic External Data Provider LAB URINE ORDERAB LES Final Result Performing Organization Address [facility]/ZIP Co de Phone Number [facility] [address] [place] [phone] * Urinalysis w/reflex microscopic (05/16/2023 5:03 AM EST) Color Urine Yellow [facility] Appearance Urine Turbid [facility] PH 8.5 5.0 - 9.0 [facility] Glucose Urine UA Negative Negative mg/dL [facility] Urine Blood Negative Negative [facility] Specific [place] - Urine 1.020 1.005 - 1.025 [facility] Urine Protein Negative Neg-Trace mg/dL [facility] Urine Ketones Negative Negative mg/dL [facility] Nitrite Urine Negative Negative [facility] Leukocyte Esterase Urine Negative Negative [facility] 05/16/2023 5:03 AM EST 05/16/2023 5:07 AM EST Narrative [facility] - 05/16/2023 5:12 AM EST [id number], Clean Catch us Generic External Data Provider LAB URINE ORDERAB LES Final Result [facility] [address] [place] [phone] [phone] * (ABNORMAL) CBC auto differential (05/16/2023 5:03 AM EST) White Blood Count 10.9(H) 4.8 - 10.8 X10*3/uL [facility] Red Blood Count 4.46 4.20 - 5.50 X10*6/uL [facility] Hemoglobin 13.1 12.0 - 16.0 g/dl [facility] Hematocrit 39.0 37.0 - 47.0 % [facility] Mean Corpuscular Volume 87.4 80.0 - 98.0 fL [facility] Mean Corpuscular Hemoglobin 29.4 27.0 - 33.0 pg [facility] Mean Corpuscular HGB Conc 33.6 31.0 - 35.0 g/dl [facility] Red Cell Distribution Width 12.1 11.0 - 16.0 % [facility] Platelet Count 277 160 - 400 X10*3/uL [facility] Mean Platelet Volume 8.9(L) 9.4 - 12.3 fL [facility] Neutrophils Percent Auto 60.6 45 - 73 % [facility] Imm Gran Pct Auto 0.2 0.0 - 0.4 % [facility] Lymphocytes Percent Auto 29.1 20 - 40 % [facility] Monocytes Percent Auto 7.9 2 - 11 % [facility] Eosinophils Percent Auto 1.8 0 - 4 % [facility] Basophils Percent Auto 0.4 0 - 2 % [facility] NRBC Pct Auto 0.0 0.0 - 0.2 /100WBC [facility] Neutrophils Absolute Auto 6.6 2.0 - 8.3 x10*3/uL [facility] Imm Gran Abs Auto 0.02 0.00 - 0.03 X10*3/uL [facility] Lymphocytes Absolute Auto 3.2 1.2 - 4.9 X10*3/uL [facility] Monocytes Absolute Auto 0.9 0.1 - 1.2 X10*3/uL [facility] Eosinophils Absolute Auto 0.2 0.0 - 0.4 X10*3/uL [facility] Basophils Absolute Auto 0.0 0.0 - 0.2 X10*3/uL [facility] NRBC Abs Auto 0.000 0.0 - 0.012 X10*3/uL [facility] 05/16/2023 5:03 AM EST 05/16/2023 5:07 AM EST us Generic External Data Provider LAB BLOOD ORDERAB LES Final Result Performing Organization Address City/State/[facility] de Phone Number [facility] [address] [place] [phone] * US Pelvis Transvaginal (04/24/2023 12:01 PM EST) Anatomical Region Laterality Modality Pelvis Ultrasound 04/24/2023 12:0 1 PM EST Narrative 04/25/2023 1:02 PM EST ? [facility] ?[address] ?[place] [address] ? Ultrasound Report ? Signed ? Patient: Josep Ta,Vi N ?MR# ?? : [id number] ? : 2005 ?Acct:[id number] ? Age/Sex: 17 / F ?ADM Date: 02/15/24 ? Loc: HO.US ? Attending Dr: Marilia Castillo MD ? Ordering Physician: Marilia Castillo MD ?? Date of Service: 04/24/23 ?? Procedure(s): US pelvic and transvaginal ?? Accession Number(s): [id number] ? cc: Marilia Castillo MD ? EXAMINATION: ? US PELVIS ? CLINICAL INFORMATION: ? Irregular menses; the last menstrual period was on 04/19/2023. ? COMPARISON: ?? None available. ? TECHNIQUE: ?? Ultrasound of the pelvis is performed using both transabdominal and ?? transvaginal transducers along with Doppler. Transvaginal imaging is ?? performed due to inadequate visualization transabdominally. ? FINDINGS: ?? Uterus: ?? The uterus is anteverted and anteflexed. The uterus measures 7.2 x 3.1 ?? x 4.0 cm. ? The double wall endometrial thickness is 2 mm. ? The uterus is smooth in contour and has normal myometrial echogenicity. ?No visible fibroid. ? Adnexa: ?? Both ovaries are visualized. There is normal color flow to the adnexa. ?? There is no ovarian torsion. There is no pelvic ascites or fluid ?? collection. ? Right ovary measures 4.2 x 4.5 x 2.1 cm, volume 20.1 mL. Small ?? physiologic follicles are incidentally noted. ? Left ovary measures 3.5 x 2.1 x 3.0 cm, volume 11.6 mL. Small ?? physiologic follicles are incidentally noted. ? US/US pelvic and transvaginal ?? IMPRESSION: ?? Unremarkable examination. ? Dictated By: ?Arun Washington MD ? Signed By: ?<Electronically signed by Arun Washington MD in OV> ? 04/25/23 1258 ? DD/ 1201 ? TD/TT: ? Brass Cutter: POONAM ? Procedure Note Jose Juan, Carmen - 04/25/[address] [address] Ultrasound Report Signed Patient: Vi Garner [facility]# : [id number] : 2005Acct:[id number] Age/Sex: 17 / FADM Date: 04/24/23 Loc: HO.US Attending Dr: Marilia Castillo MD Ordering Physician: Marilia Castillo MD Date of Service: 04/24/23 Procedure(s): US pelvic and transvaginal Accession Number(s): [id number] cc: Marilia Castillo MD EXAMINATION: US PELVIS CLINICAL INFORMATION: Irregular menses; the last menstrual period was on 04/19/2023. COMPARISON: None available. TECHNIQUE: Ultrasound of the pelvis is performed using both transabdominal and transvaginal transducers along with Doppler. Transvaginal imaging is performed due to inadequate visualization transabdominally. FINDINGS: Uterus: The uterus is anteverted and anteflexed. The uterus measures 7.2 x 3.1 x 4.0 cm. The double wall endometrial thickness is 2 mm. The uterus is smooth in contour and has normal myometrial echogenicity. No visible fibroid. Adnexa: Both ovaries are visualized. There is normal color flow to the adnexa. There is no ovarian torsion. There is no pelvic ascites or fluid collection. Right ovary measures 4.2 x 4.5 x 2.1 cm, volume 20.1 mL. Small physiologic follicles are incidentally noted. Left ovary measures 3.5 x 2.1 x 3.0 cm, volume 11.6 mL. Small physiologic follicles are incidentally noted. US/US pelvic and transvaginal IMPRESSION: Unremarkable examination. Dictated By: Arun Washington MD Signed By: <Electronically signed by Arun Washington MD in OV> 04/25/23 1258 DD/ 1201 TD/TT: Brass Cutter: POONAM us Marilia Castillo MD IMG US PROCEDURES Edited Result - Final documented in this encounter Visit Diagnoses Diagnosis Irregular menstruation- Primary Irregular menstrual cycle documented in this encounter Additional Health Concerns Assessment Noted Time PHQ-9 Depression Total Score: 0 03/27/19 24 9:28 AM EST documented as of this encounter Care Teams Info Analyst Relationship Specialty Start Date End Date Marilia Castillo MD [address] [place] [address] PCP - General Family Medicine 03/27/23 documented as of this encounter
--- OUTSIDE RECORDS SUMMARY | 2024-04-25 20:46 | XMS_ITS | Clinical Summary ---
Author Organization [facility] Address [address] [place] [phone] Phone Care Team Providers Care Data Integrity Consultant Name Role Phone Unavailable Primary Care Provider Unavailabl e Allergies Active Allergy Reactions Criticality Noted Date Comments Environmental 12/04/2016 Cat dander, dog dander, feathers, mold, ragweed, and rabbits Medications PROAIR HFA 108 (90 BASE) MCG/ACT inhaler USE 2 PUFFS BY MOUTH EVERY 4-6 HOURS NEEDED 0 10/21/2016 Active melatonin (KP MELATONIN) tablet Take by mouth. 07/20/2013 Active Immunizations Immunization Administration Dates Next Due DTaP 5 01/19/2009, 7,04/25/2005,02/12,2004 H1N1 02/24/2009,01/19/2009 HPV Vaccine 9 Valent 04/25/2016,12/22/2015,10/16 Hep A, ped/adol 07/20/2013,07/30/2010 Hep B, ped/adol 04/25/2005,02/12/2005,2004 Hib (PRP-T) 01/28/2006, 6,02/12/2005,12/13 IPV 01/19/2009, 6,02/12/2005,12/13 Influenza, injectable, quadrivalent 12/22/2015 Influenza, injectable, quadr ivalent, preservative free 11/30/2013 Influenza, injectable, trivalent 02/24/2009,10/09/2007,01/28/2006 MMR 01/19/2009,10/25/2005 Meningococcal Conj (Menactra) MCV4P 10/17/2015 Pneumococcal Conjugate 01/28/2006,2005,02/12/2005,12/13 Tdap 10/17/2015 Varicella 01/19/2009,10/25/2005 Family History Relation Name Status Comments Father Alive Father: Deafnes s Mother Alive Mother: Alive a nd well Other No family histo ry of *Sudden /ID under 55, No family history of ADD/ADHD, Family history of Seizure disorder, No family history of Strabismus, No family history of Developmental dislocation of hip, Family history of Obesity, Family history of *Heart Disease, Family history of Asthma, Family history of Elevated cholesterol, Family history of Diabetes mellitus, Family history of Cancer, Family history of *CVA/Stroke, Family history of Migraines Social History Tobacco Use Types Packs/Day Years Used Date Smoking Tobacco: Never Comments:Never smoker Comments Unknown Sex and Gender Information Value Date Recorded Sex Assigned at Not on file Legal Sex Female 5:15 PM EDT Gender Identity Not on file Sexual Orientation Not on file Last Filed Vital Signs Vital Sign Reading Time Taken Comments Blood Pressure 102/71 12/04/2016 3:39 PM EDT Pulse 78 12/04/2016 3:39 PM EDT Temperature 38.1 ??C (100.6 ??F) 04/21/2016 12:00 AM EST Respiratory Rate - - Oxygen Saturation 92% 07/23/2011 12:00 AM EDT Inhaled Oxygen Concentration - - Weight 47.2 kg (104 lb) 12/04/2016 3:39 PM EDT Height 158.5 cm (5' 2.4 ) 10/21/2016 12:00 AM ED T Body Mass Index - - Plan of Treatment Health Maintenance Due Date Last Done Comments Men B Vaccine (1 of 2 - Standard) 2020 Influenza Vaccines (#1) 2023 12/22/19 16, 11/30/2013, 02/24/2009, Additional history exists COVID-19 Vaccine ( - season) 2023 DTaP,Tdap,and Td Vaccines (7 - Td or Tdap) 10/16/2025 10/17/2015, 01/19/2009, 05/19/2006, Additional history exists Hepatitis B Vaccines Completed 04/25/2005, 02/12/2005, 2004 HIB Vaccines Completed 01/28/2006, 04/10, 02/12/2005, Additional history exists Pneumococcal Vaccine Completed 01/28/2006, 04/25/2005, 02/12/2005, Additional history exists IPV Vaccines Completed 01/19/2009, 04/10, 02/12/2005, Additional history exists MMR Vaccines Completed 01/19/2009, 10/25/2005 Varicella Vaccines Completed 01/19/2009, 10/25/2005 Hepatitis A Vaccines Completed 07/20/2013, 07/31/19 11 Meningococcal Vaccine Aged Out 10/17/2015 No kimberly carmen eligible based on patient's age to complete this topic HPV Vaccines Completed 04/25/2016, 12/08, 10/17/2015 Insurance [facility] NON PCC Member Subscriber Plan / Payer (Ef fective 2016-Present) Name:Vi Putnam Relation to Subscriber:Self Name:Vi Putnam Payer ID:Not on file Group ID:Not on file Type:Medicaid Address: [address] [employer]
--- OUTSIDE RECORDS SUMMARY | 2024-04-25 20:46 | XMS_ITS | Clinical Summary ---
Author Organization [facility] Address [address] [place] [address] Care Team Providers Care Logistics System Engineer Name Role Phone Unavailable Primary Care Provider Unavailabl e Social History Tobacco Use Types Packs/Day Years Used Date Smoking Tobacco: Never Assessed Comments Unknown Sex and Gender Information Value Date Recorded Sex Assigned at Not on file Legal Sex Female 11:34 PM EST Gender Identity Not on file Sexual Orientation Not on file Plan of Treatment Health Maintenance Due Date Last Done Comments Gonorrhea/Chlamydia Screening 2004 Varicella Vaccines (1 of 2 - 13+ 2-dose series) 2017 HPV Vaccines (1 - 3-dose series) 10/12/2019 Meningococcal B Vacine (1 of 2 - Standard) 2020 DTaP,Tdap,and Td Vaccines (1 - Tdap) 10/12/2023 Hepatitis B Vaccines (1 of 3 - 19+ 3-dose series) 10/12/2023 COVID-19 Vaccine (1 - 2023-2 5 season) 2023 Influenza Vaccine (#1) 2023 HIB Vaccines Aged Out No longer eligi ble based on patient's age to complete this topic Hepatitis A Vaccines Aged Out No long er eligible based on patient's age to complete this topic IPV Vaccines Aged Out No longer eligi ble based on patient's age to complete this topic MMR Vaccines Aged Out No longer eligi ble based on patient's age to complete this topic Meningococcal ACWY Vaccine Aged Out N o longer eligible based on patient's age to complete this topic Pneumococcal Vaccine: Pediat rics (0 to 5 Years) and At-Risk Patients (6 to 64 Years) Aged Out No longer eligible b ased on patient's age to complete this topic RSV Immunization Patients Un edmond 20 months Aged Out No longer eligible b ased on patient's age to complete this topic
--- OUTSIDE RECORDS SUMMARY | 2024-04-25 20:46 | XMS_ITS | Encounter Summary ---
Author Organization [employer] Address [address] [place] [address] Care Team Providers Care Internet Technology Manager Name Role Phone Marilia Castillo MD Primary Care Provider [phone] Reason for Visit * Reason Comments Med Refill Encounter Details Date Type Department Care Team ([facility] st Contact Info) Description 01/12/2024 Refill [facility] [address] [place] [phone] Maggie Gonzalez MD [address] [place] [address] Social History Tobacco Use Types Packs/Day Years [...] Description 05/17/2024 1:00 PM EDT Office Visit [facility] [address] [place] [address] Marilia Castillo MD [address] [place] [phone] documented as of this encounter Visit Diagnoses Not on filedocumented in this encounter Additional Health Concerns Assessment Noted Time PHQ-9 Depression Total Score: 0 03/27/19 24 9:28 AM EST documented as of this encounter Care Teams Internet Technology Manager Relationship Specialty Start Date End Date Marilia Castillo MD [address] [place] [phone] PCP - General Family Medicine 03/27/23 documented as of this encounter
--- OUTSIDE RECORDS SUMMARY | 2024-04-25 20:46 | XMS_ITS | Encounter Summary ---
Author Organization [employer] Address [address] [place] [address] Care Team Providers Care Information Support Project Manager Name Role Phone Marilia Castillo MD Primary Care Provider [phone] Encounter Details Date Type Department Care Team ([facility] st Contact Info) Description 07/07/2023 Telephone [facility] [address] [place], [place] [phone] Marilia Castillo MD [address] [place], [place] [phone] Social History Tobacco Use Types Packs/Day Years [...] EDT Office Visit [facility] [address] [place] [phone] Marilia Castillo MD [address] [place] [phone] documented as of this encounter Visit Diagnoses Not on filedocumented in this encounter Additional Health Concerns Assessment Noted Time PHQ-9 Depression Total Score: 0 03/27/19 24 9:28 AM EST documented as of this encounter Care Teams Information Support Project Manager Relationship Specialty Start Date End Date Marilia Castillo MD [address] [place] [phone] PCP - General Family Medicine 03/27/23 documented as of this encounter
[2024-04-26] MEDS: Doxycycline Monohydrate 100 MG CAPSULE PO
[2024-04-26] MEDS: cefTRIAXone sodium 500 MG, Lidocaine HCl 1 % MPF 1 ML IM
--- NOTE | 2024-04-26 00:06 | PC.NURSE ---
Pt medicated per [facility] Plan of care ongoing.
[2024-04-26 00:48] VITALS: BP 132/84; PULSE 96; RESP 18; TEMP 36.8; O2SAT 100
[2024-04-26 00:51] VITALS: BP 132/84; PULSE 96; RESP 18; TEMP 36.8; O2SAT 100
[2024-04-26 01:26] LABS: CT PCR NOT DETECTED (Not Detect.); NG PCR NOT DETECTED (Not Detect.)
[2024-04-26 01:28] LABS: CT PCR NOT DETECTED (Not Detect.); NG PCR NOT DETECTED (Not Detect.)
[2024-04-26 09:17] LABS: Bacterial Vaginosis PCR NEGATIVE (Negative); Candida Group PCR NOT DETECTED (Not Detect); Candida glab krusei PCR NOT DETECTED (Not Detect); Trichomonas vaginalis PCR NOT DETECTED (Not Detect)
== END 2024-04-26 00:51 | disposition home or self-care (01) ==
PROVIDERS: Physician Assistant; Emergency Provider Emergency Medicine Emergency Medical Services
DX: N73.9 Female pelvic inflammatory disease, unspecified (principal); M54.50 Low back pain, unspecified; N89.8 Other specified noninflammatory disorders of vagina; R30.0 Dysuria; L29.9 Pruritus, unspecified; Z79.899 Other long term (current) drug therapy; Z20.2 Contact with and (suspected) exposure to infections with a predominantly sexual mode of transmission
CPT/HCPCS: 36415; 76775; 80048; 80076; 81001; 81025; 81515; 83690; 83735; 85025; 87491; 87591; 96372; 99284; J0696; J2003

== ENCOUNTER → 2024-04-25 17:30 | Outpatient (BNV) | payer OTHER, MEDICAID, SELFPAY | PROVIDERS: Visit Provider Student in an Organized Health Care Education/Training Program | DX: M54.59 Other low back pain (principal) | CPT/HCPCS: 76775 ==

== ENCOUNTER 2024-07-23 17:18 | Emergency (ER) | payer OTHER, MEDICAID, SELFPAY ==
--- NOTE | ~2024-07-23 | US_ITS ---
CLINICAL HISTORY: pelvic cramping, spotting, unprot intercourse Transabdominal and transvaginal pelvic ultrasound Bilateral ovarian Doppler studies Comparison: 04/24/2023 Findings: Uterus 6.0 x 2.3 x 4.0 cm. Endometrium 3 mm. No free fluid. Right ovary 3.6 x 3.3 x 3.0 cm. Left ovary 3.7 x 1.8 x 1.4 cm. No significant focal abnormality. Arterial and venous color and spectral Doppler assessment of both ovaries. There is normal flow to both ovaries without evidence for ovarian torsion. Impression: No acute process This document has been electronically signed by: Efraín Olson MD on 07/23/2024 19:45:29
[2024-07-23 17:50] VITALS: BP 120/91; PULSE 87; RESP 16; TEMP 36.2; O2SAT 97; BMI 21.1
[2024-07-23 18:16] LABS: Appearance Urine Clear; Color Urine Yellow; Glucose Urine UA Negative (Negative); Leukocyte Esterase Urine Negative (Negative); Nitrite Urine Negative (Negative); Specific Gravity - Urine 1.025 (1.005-1.025); Urine Blood Negative (Negative); Urine Ketones Negative (Negative); Urine Protein Negative (Neg-Trace)
[2024-07-23 18:17] LABS: Hematocrit 42.1 % (37.0-47.0); Hemoglobin 14.1 g/dl (12.0-16.0); Mean Corpuscular HGB Conc 33.5 g/dl (31.0-35.0); Mean Corpuscular Hemoglobin 30.3 pg (27.0-33.0); Mean Corpuscular Volume 90.3 fL (80.0-98.0); Platelet Count 300 X10*3/uL (160-400); Red Blood Count 4.66 X10*6/uL (4.20-5.50)
[2024-07-23 18:43] LABS: Alanine Aminotransferase 19 U/L (0-31); Albumin Level 4.5 g/dL (3.5-5.0); Alkaline Phosphatase 90 U/L (39-117); Anion Gap 13 (12-20); Aspartate Amino Transferase 25 U/L (5-31); Bilirubin Total 0.7 mg/dL (0.0-1.0); Blood Urea Nitrogen 12 mg/dL (9-16); Calcium 9.5 mg/dL (8.4-10.2); Carbon Dioxide 27 mmol/L (22-29); Chloride 103 mmol/L (96-108); Creatinine Clr Calc Pharmacy 114.8; Estimated Glomerular Filt Rate > 60; Glucose Random 93 mg/dL (60-115); HCG Quantitative < 2 mIU/mL; Potassium 3.8 mmol/L (3.3-5.1); Sodium 139 mmol/L (135-145); Total Protein 7.9 g/dL (6.5-8.0)
[2024-07-23 19:25] VITALS: BP 110/75; PULSE 87; RESP 18; TEMP 36.7; O2SAT 98
[2024-07-23 19:36] LABS: Lipase 24 U/L (8-78)
--- OUTSIDE RECORDS SUMMARY | 2024-07-23 19:39 | XMS_ITS | Encounter Summary ---
Author Organization [facility] Address [address] [place] [phone] Phone Care Team Providers Care Library Customer Service Clerk Name Role Phone Tiffanie Caputo NP Primary Care Provider Jane horton Encounter Details Date Type Department Care Team (Late st Contact Info) Description 06/25/2013 Documentation [facility] Family Medicine [address] [place] [address] Family Medicine, Physician [place] [address] Social History Tobacco Use Types Packs/Day Years [...] on filedocumented in this encounter Care Teams Library Customer Service Clerk Relationship Specialty Start Date End Date Tiffanie Caputo NP PCP - General 10/18/16 06/19/22 documented as of this encounter
--- OUTSIDE RECORDS SUMMARY | 2024-07-23 19:39 | XMS_ITS | Encounter Summary ---
Author Organization [facility] Address [address] [place] [phone] Phone Care Team Providers Care Snuff Packing Machine Operator Name Role Phone Tiffanie Caputo EDIPHONE OPERATOR Primary Care Provider Jane horton Encounter Details Date Type Department Care Team (Late st Contact Info) Description 10/24/2016 Conversion Encounter [facility] [address] [address] Social History Tobacco Use Types Packs/Day Years [...] on filedocumented in this encounter Care Teams Snuff Packing Machine Operator Relationship Specialty Start Date End Date Tiffanie Caputo NP PCP - General 10/18/16 06/19/22 documented as of this encounter
--- OUTSIDE RECORDS SUMMARY | 2024-07-23 19:39 | XMS_ITS | Encounter Summary ---
Author Organization [employer] Address [address] [place] [address] Care Team Providers Care Maintenance Operator Name Role Phone Marilia Castillo MD Primary Care Provider [phone] Encounter Details Date Type Department Care Team (Late st Contact Info) Description 03/29/2023 Orders Only [facility] [address] [place], [place] [phone] Marilia Castillo MD [address] [place], [place] [phone] Irregular menstruation (Primary Dx) Social History Tobacco [...] on file documented as of this encounter Procedures Procedure [...] EST) Lipase 30 8 - 78 U/L [facility] 05/16/2023 5:03 AM EST 05/16/2023 5:07 AM EST us Generic External Data Provider LAB BLOOD ORDERAB LES Final Result [facility] [address] [place] [address] [phone] * Hepatic Function Panel (05/16/2023 5:03 AM EST) Pathologist [facility] Bilirubin, Total 0.4 0.0 - 1.0 mg/dL [facility] Bilirubin, Direct 0.1 0.0 - 0.5 mg/dL [facility] Aspartate Amino Transferase 20 5 - 31 U/L [facility] Alanine Aminotransferase 18 0 - 31 U/L [facility] Total Protein 7.1 6.5 - 8.0 g/dL [facility] Albumin Level 4.0 3.5 - 5.0 g/dL [facility] Alkaline Phosphatase 87 39 - 117 U/L [facility] 05/16/2023 5:03 AM EST 05/16/2023 5:07 AM EST Generic External Data Provider LAB BLOOD ORDERAB LES Final Result Performing Organization Address [facility] Co de Phone Number [facility] [address] [place] [address] [phone] * (ABNORMAL) Basic Metabolic Panel (05/16/2023 5:03 AM EST) [facility] Sodium 141 135 - 145 mmol/L [facility] Potassium 3.9 3.3 - 5.1 mmol/L [facility] Chloride 105 96 - 108 mmol/L [facility] Carbon Dioxide 29 22 - 29 mmol/L [facility] Anion Gap 11(L) 12 - 20 [facility] Urea Nitrogen (BUN) 14 9 - 16 mg/dL [facility] Creatinine, Serum 0.67 0.5 - 1.4 mg/dL [facility] Creatinine Clr Calc Pharmacy TNP [facility] Comment:Cannot be calculated ; patient is less than 19 years old. Estimated Glomerular Filt Rate >60 [facility] Comment:NOTE: For -Am erican individuals, multiply the result by 1.210.Chronic Kidney Disease: Estimated GFR < 60 mL/min/1.74v0Uafdeb Kidney Disease: Estimated GFR < 15 mL/min/1.73m2 Glucose 88 60 - 115 mg/dL [facility] Calcium 9.3 8.4 - 10.2 mg/dL [facility] 05/16/2023 5:03 AM EST 05/16/2023 5:07 AM EST Generic External Data Provider LAB BLOOD ORDERAB LES Final Result Performing Organization Address City/[facility]/ZIP Co de Phone Number [facility] [address] [place] [address] [phone] * HCG, Qualitative, Urine (05/16/2023 5:03 AM EST) Urine NEGATIVE NEGATIVE [facility] Comment:This test was develo ped to detect early . Falsenegative results may occur after the 5th - 7th week ofpregnancy when using this test method. If clinicallyindicated, consider a serum hCG. 05/16/2023 5:03 AM EST 05/16/2023 5:07 AM EST us Generic External Data Provider LAB URINE ORDERAB LES Final Result Performing Organization Address City/[facility]/ZIP Co de Phone Number [facility] [address] [place] [address] [phone] * Urinalysis w/reflex microscopic (05/16/2023 5:03 AM EST) Color Urine Yellow [facility] Appearance Urine Turbid [facility] PH 8.5 5.0 - 9.0 [facility] Glucose Urine UA Negative Negative mg/dL [facility] Urine Blood Negative Negative [facility] Specific [place] - Urine 1.020 1.005 - 1.025 [facility] Urine Protein Negative Neg-Trace mg/dL [facility] Urine Ketones Negative Negative mg/dL [facility] Nitrite Urine Negative Negative [facility] Leukocyte Esterase Urine Negative Negative [facility] 05/16/2023 5:03 AM EST 05/16/2023 5:07 AM EST Narrative [facility] - 05/16/2023 5:12 AM EST [id number], Clean Catch us Generic External Data Provider LAB URINE ORDERAB LES Final Result [facility] [address] [place] [phone] * (ABNORMAL) CBC auto differential (05/16/2023 5:03 AM EST) White Blood Count 10.9(H) 4.8 - 10.8 X10*3/uL [facility] Red Blood Count 4.46 4.20 - 5.50 X10*6/uL [facility] Hemoglobin 13.1 12.0 - 16.0 g/dl [facility] Hematocrit 39.0 37.0 - 47.0 % [facility] Mean Corpuscular Volume 87.4 80.0 - 98.0 fL [facility] Mean Corpuscular Hemoglobin 29.4 27.0 - 33.0 pg [facility] Mean Corpuscular HGB Conc 33.6 31.0 - 35.0 g/dl [facility] Red Cell Distribution Width 12.1 11.0 - 16.0 % [facility] Platelet Count 277 160 - 400 X10*3/uL [facility] Mean Platelet Volume 8.9(L) 9.4 - 12.3 fL [facility] Neutrophils Percent Auto 60.6 45 - 73 % [facility] Imm Gran Pct Auto 0.2 0.0 - 0.4 % [facility] Lymphocytes Percent Auto 29.1 20 - 40 % [facility] Monocytes Percent Auto 7.9 2 - 11 % [facility] Eosinophils Percent Auto 1.8 0 - 4 % [facility] Basophils Percent Auto 0.4 0 - 2 % [facility] NRBC Pct Auto 0.0 0.0 - 0.2 /100WBC [facility] Neutrophils Absolute Auto 6.6 2.0 - 8.3 x10*3/uL [facility] Imm Gran Abs Auto 0.02 0.00 - 0.03 X10*3/uL [facility] Lymphocytes Absolute Auto 3.2 1.2 - 4.9 X10*3/uL [facility] Monocytes Absolute Auto 0.9 0.1 - 1.2 X10*3/uL [facility] Eosinophils Absolute Auto 0.2 0.0 - 0.4 X10*3/uL [facility] Basophils Absolute Auto 0.0 0.0 - 0.2 X10*3/uL [facility] NRBC Abs Auto 0.000 0.0 - 0.012 X10*3/uL [facility] 05/16/2023 5:03 AM EST 05/16/2023 5:07 AM EST us Generic External Data Provider LAB BLOOD ORDERAB LES Final Result Performing Organization Address City/State/[facility] Co de Phone Number [facility] [address] [place] [address] [phone] * US Pelvis Transvaginal (04/24/2023 12:01 PM EST) Anatomical Region Laterality Modality Pelvis Ultrasound 04/24/2023 12:0 1 PM EST Narrative 04/25/2023 1:02 PM EST ? [facility] ?[address] ?[place] [address] ? Ultrasound Report ? Signed ? Patient: Josep Ta,Vi N ?MR# ?? : [id number] ? : 2005 ?Acct:[id number] ? Age/Sex: 17 / F ?ADM Date: 02/15/24 ? Loc: HO.US ? Attending Dr: Marilia Castillo MD ? Ordering Physician: Marilia Castillo MD ?? Date of Service: 04/24/23 ?? Procedure(s): US pelvic and transvaginal ?? Accession Number(s): [id number] ? cc: Marilia Castillo MD ? EXAMINATION: [...] 1258 ? DD/ 1201 ? TD/TT: ? Office Auditor: POONAM ? Procedure Note Donjerryter, Image - 04/25/[address] [address] Ultrasound Report Signed Patient: Vi Garner [facility]# : [id number] : 2005Acct:[id number] Age/Sex: 17 / FADM Date: 04/24/23 Loc: HO.US Attending Dr: Marilia Castillo MD Ordering Physician: Marilia Castillo MD Date of Service: 04/24/23 Procedure(s): US pelvic and transvaginal Accession Number(s): [id number] cc: Marilia Castillo MD EXAMINATION: US PELVIS [...] in OV> 04/25/23 1258 DD/ 1201 TD/TT: Office Auditor: POONAM us Marilia Castillo MD IMG US PROCEDURES Edited Result - Final documented in this encounter Visit Diagnoses Diagnosis Irregular menstruation- Primary Irregular menstrual cycle documented in this encounter Additional Health Concerns Assessment Noted Time PHQ-9 Depression Total Score: 0 03/27/19 9:28 AM EST documented as of this encounter Care Teams Maintenance Operator Relationship Specialty Start Date End Date Marilia Castillo MD [address] [place] [phone] PCP - General Family Medicine 03/27/23 documented as of this encounter
--- OUTSIDE RECORDS SUMMARY | 2024-07-23 19:39 | XMS_ITS | Clinical Summary ---
Author Organization [facility] Address [address] [place] [phone] Phone Care Team Providers Care Rn Compliance Name Role Phone Unavailable Primary Care Provider [...] Other No family histo ry of *[place]den /[place] under 55, No family history of ADD/ADHD, [...] HPV Vaccines Completed 04/25/2016, 12/08, 10/17/2015 Insurance [facility] NON PCC Member Subscriber Plan / Payer (Ef fective 2016-Present) Name:Vi Putnam Relation to Subscriber:Self Name:Vi Putnam Payer ID:Not on file Group ID:Not on file Type:Medicaid Address: [address] [employer]
--- OUTSIDE RECORDS SUMMARY | 2024-07-23 19:39 | XMS_ITS | Clinical Summary ---
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 Will treat with abx empirically. -sent off antigen testing. -prescribed Azithromycin 500 mg BID the first day and then once daily till course completed. -recommended tea, honey and vics for coughing/soothing throat. Acute upper respiratory infection 12/16/2023 05/16/2024 Assessment & Plan (12/16/2023 10:43 AM EDT): [...] discussed. -Seek medical attention for worsening symptoms. Encounters Date Type Department Care Team Description 07/23/2024 Orders Only GENERIC EXTERNAL DATA DEPARTMENT Provider, Generic External Data 05/17/[address] [address] Marilia Castillo MD No Show 05/13/[address] [address] Marilia Castillo MD chart prep 05/07/2024 Patient Outreach [address] [phone] Marilia Castillo MD Pre-visit Planning (Pre-visit planning - LVM ) from Last 3 Months Immunizations Immunization Administration Dates Next Due DTaP 05/19/2006 DTaP [...] unspecified 10/17/2015 Meningococcal MCV4P ACYW-135 10/17/2015 Novel [id number], all formulations 02/24/2009,01/19/2009 Pneumococcal Conjugate PCV 13 [...] 12/16/2023 10:28 AM EDT Plan of Treatment Health Maintenance Due Date Last Done Comments Fluoride Varnish 06/11/2005 Alcohol/Substance Use Screening 2016 Meningococcal B Vaccine (1 of 2 - Standard) 2020 COVID-19 Vaccine ( season) 2023 Influenza Vaccine [...] Procedure Name Priority Date/Time Associated Diagnosis Comments LIPASE Routine 07/23/2024 6:09 PM EDT MAGNESIUM Routine 07/23/2024 6:09 PM EDT HCG, TOTAL, QN Routine 07/23/2024 6:09 PM EDT COMPREHENSIVE METABOLIC PANEL Routine 07/23/2024 6:09 PM EDT URINALYSIS WITH REFLEX MICROSCOPIC Routine 07/23/2024 6:09 PM EDT CBC Routine 07/23/2024 6:09 PM EDT CHLAMYDIA/N. GONORRHOEAE RNA, TMA, UROGENITAL Routine 09/29/2023 [...] Recently Relevant to Health Maintenance Results * Urinalysis w/reflex microscopic (07/23/2024 6:09 PM EDT) Color Urine Yellow [facility] Appearance Urine Clear [facility] PH 7.0 5.0 - 9.0 [facility] Glucose Urine UA Negative Negative mg/dL [facility] Urine Blood Negative Negative [facility] Specific [place] - Urine 1.025 1.005 - 1.025 [facility] Urine Protein Negative Neg-Trace mg/dL [facility] Urine Ketones Negative Negative mg/dL [facility] Nitrite Urine Negative Negative [facility] Leukocyte Esterase Urine Negative Negative [facility] 07/23/2024 6:09 PM EDT 07/23/2024 6:12 PM EDT Narrative [facility] - 07/23/2024 6:18 PM EDT [id number], Clean Catch us Generic External Data Provider LAB URINE ORDERAB LES Final Result Performing Organization Address City/[facility]/ZIP Co de Phone Number [facility] [address], [place] [phone] * (ABNORMAL) CBC (07/23/2024 6:09 PM EDT) White Blood Count 8.0 4.8 - 10.8 X10*3/uL [facility] Red Blood Count 4.66 4.20 - 5.50 X10*6/uL [facility] Hemoglobin 14.1 12.0 - 16.0 g/dl [facility] Hematocrit 42.1 37.0 - 47.0 % [facility] Mean Corpuscular Volume 90.3 80.0 - 98.0 fL [facility] Mean Corpuscular Hemoglobin 30.3 27.0 - 33.0 pg [facility] Mean Corpuscular HGB Conc 33.5 31.0 - 35.0 g/dl [facility] Red Cell Distribution Width 12.0 11.0 - 16.0 % [facility] Platelet Count 300 160 - 400 X10*3/uL [facility] Mean Platelet Volume 9.0(L) 9.4 - 12.3 fL [facility] NRBC Pct Auto 0.0 0.0 - 0.2 /100WBC [facility] NRBC Abs Auto 0.000 0.0 - 0.012 X10*3/uL [facility] 07/23/2024 6:09 PM EDT 07/23/2024 6:12 PM EDT Generic External Data Provider LAB BLOOD ORDERAB LES Final Result Performing Organization Address City/[facility]/ZIP Co de Phone Number [facility] [address] [place] [address] [phone] * hCG, Total, Quantitative (07/23/2024 6:09 PM EDT) HCG Quantitative <2 mIU/mL [facility] Comment:Weeks post LMP Appro ximate hCG(Last Menstrual Period) Range (mIU/ml)3 - 4 weeks 9 - 1304 - 5 weeks 75 - 2,6005 - 6 weeks 850 - 20,8006 - 7 weeks 4000 - 100,2007 - 12 weeks 11,500 - 289,49047 - 16 weeks 18,300 - 137,88913 - 29 weeks (2nd trimester) 1,400 - 53,87089 - 41 weeks (3rd trimester) 940 - 60,000The [place] B- hCG assay is used for the early detection ofpregnancy; it cannot be used to diagnose any conditionunrelated to . If a B-hCG level is not supportedby the clinical evidence, results should be confirmed by analternative method (qualitative urine hCG, for example). 07/23/2024 6:09 PM EDT 07/23/2024 6:12 PM EDT Generic External Data Provider LAB BLOOD ORDERAB LES Final Result Performing Organization Address [facility]/ZIP Co de Phone Number [facility] [address] [place] [phone] * Magnesium (07/23/2024 6:09 PM EDT) Magnesium 2.0 1.6 - 2.6 mg/dL [facility] 07/23/2024 6:09 PM EDT 07/23/2024 6:12 PM EDT us Generic External Data Provider LAB BLOOD ORDERAB LES Final Result Performing Organization Address City/[facility]/ZIP Co de Phone Number [facility] [address] [place] [phone] * Lipase (07/23/2024 6:09 PM EDT) Lipase 24 8 - 78 U/L [facility] 07/23/2024 6:09 PM EDT 07/23/2024 6:12 PM EDT us Generic External Data Provider LAB BLOOD ORDERAB LES Final Result [facility] [address] [place] [address] [phone] * Comprehensive Metabolic Panel (07/23/2024 6:09 PM EDT) Sodium 139 135 - 145 mmol/L [facility] Potassium 3.8 3.3 - 5.1 mmol/L [facility] Chloride 103 96 - 108 mmol/L [facility] Carbon Dioxide 27 22 - 29 mmol/L [facility] Anion Gap 13 12 - 20 [facility] Urea Nitrogen (BUN) 12 9 - 16 mg/dL [facility] Creatinine, Serum 0.68 0.5 - 1.4 mg/dL [facility] Creatinine Clr Calc Pharmacy 114.8 [facility] Comment:Provided height and weight: 162.56 cm,55.7 kg.eGFR (calculated from the MDRD study equation) and eCrCl(calculated from the Cockcroft-Gault equation) are based ondifferent parameters and may not yield comparable results.If eCrCl result is absurd, please check patient'sheight/weight. Estimated Glomerular Filt Rate >60 [facility] Comment:Chronic Kidney Disea se: Estimated GFR < 60 mL/min/1.13d6Yurqha Kidney Disease: Estimated GFR < 15 mL/min/1.73m2 Glucose 93 60 - 115 mg/dL [facility] Calcium 9.5 8.4 - 10.2 mg/dL [facility] Bilirubin, Total 0.7 0.0 - 1.0 mg/dL [facility] Aspartate Amino Transferase 25 5 - 31 U/L [facility] Alanine Aminotransferase 19 0 - 31 U/L [facility] Total Protein 7.9 6.5 - 8.0 g/dL [facility] Albumin Level 4.5 3.5 - 5.0 g/dL [facility] Alkaline Phosphatase 90 39 - 117 U/L [facility] 07/23/2024 6:09 PM EDT 07/23/2024 6:12 PM EDT us Generic External Data Provider LAB BLOOD ORDERAB LES Final Result [facility] [address] [place] [address] [phone] * Chlamydia/N. Gonorrhoeae RNA, TMA, Urogenitial (09/29/2023 5:50 PM EDT) CT PCR NOT DETECTED Not Detect. [facility] Comment:A not detected test result [...] psychologicalconsequences. NG PCR NOT DETECTED Not Detect. [facility] Comment:A not detected test result [...] PM EDT 09/30/2023 1:50 PM EDT Narrative [facility] - 09/30/2023 1:51 PM EDT Vaginal us Katelyn Veloz MD LAB MICROBIOLOGY - GENERAL OR DERABLES Final Result Performing Organization Address [facility] Co de Phone Number [facility] [address] [place] [phone] * Hepatitis C Antibody with Reflex to HCV, RNA, Quantitative, Real-Time PCR (03/27/2023 10:37 AM EST) Hepatitis C Antibody Nonreactive Nonreactive [facility] Comment:Antibodies to HCV no t detected; does not exclude early acuteHCV infection. Blood Venous blood specimen / Unknown 03/27/2023 10:37 AM EST 03/27/2023 11:48 AM EST Marilia Castillo MD LAB BLOOD ORDERABLES Final Resul t Performing Organization Address [facility] Co de Phone Number [facility] [address] [place] [phone] * HIV-1/2 Antigen and Antibodies, Fourth Generation, with Reflexes (03/27/2023 10:37 AM EST) HIV AB/AG Nonreactive Nonreactive [facility] Comment:HIV-1 p24 Ag and/or HIV-1/HIV-2 Ab not detected.A test result that is nonreactive does not exclude thepossibility of exposure to or infection with HIV-1 and/orHIV-2. Nonreactive results in this assay for individualswith prior exposure to HIV-1 and/or HIV-2 may be due toantigen and antibody levels that are below the limit ofdetection of this assay.The [employer] HIV Ag/Ab Combo assay result andsupplemental assay results should be interpreted inconjunction with the patient's clinical presentation,history and other laboratory results. If the results areinconsistent with clinical evidence, additional testing issuggested to confirm the result. Blood Venous blood specimen / Unknown 03/27/2023 10:37 AM EST 03/27/2023 11:48 AM EST Marilia Castillo MD LAB BLOOD ORDERABLES Final Resul t [facility] [address] [place] [address] [phone] from Last 3 Months or Most Recently Relevant to Health Maintenance Insurance [facility] , [address] [place] [address] [facility] Care Teams Sandwich And Drink Cart Operator Relationship Specialty Start Date End Date Marilia Castillo MD [address] [place] [phone] PCP - General Family Medicine 03/27/23
--- OUTSIDE RECORDS SUMMARY | 2024-07-23 19:39 | XMS_ITS | Encounter Summary ---
Author Organization [employer] Address [address] [place] [address] Care Team Providers Care Twisting Frame Changer Name Role Phone Marilia Castillo MD Primary Care Provider [phone] Encounter Details Date Type Department Care Team (Late st Contact Info) Description 07/07/[address] [facility] MEDICINE [address] [place], [place] [phone] Marilia Castillo MD [address] [place], [place] [phone] Social History Tobacco Use Types Packs/Day Years [...] documented as of this encounter Care Teams Twisting Frame Changer Relationship Specialty Start Date End Date Marilia Castillo MD [address] [place] [phone] PCP - General Family Medicine 03/27/23 documented as of this encounter
--- OUTSIDE RECORDS SUMMARY | 2024-07-23 19:39 | XMS_ITS | Encounter Summary ---
Author Organization [employer] Address [address] [place] [address] Care Team Providers Care Radiology Aide Name Role Phone Marilia Castillo MD Primary Care Provider [phone] Reason for Visit * Reason Onset Date Comments Med Refill 07/01/2023 Encounter Details Date Type Department Care Team (Late st Contact Info) Description 07/01/2023 Refill [facility] MED[facility]INE [address] [place] [address] Maggie Gonzalez MD [address] [place], [place] [phone] Social History Tobacco Use Types Packs/Day Years [...] documented as of this encounter Care Teams Radiology Aide Relationship Specialty Start Date End Date Marilia Castillo MD [address] [place] [address] PCP - General Family Medicine 03/27/23 documented as of this encounter
--- OUTSIDE RECORDS SUMMARY | 2024-07-23 19:39 | XMS_ITS | Encounter Summary ---
Author Organization [employer] Address [address] [place] [address] Care Team Providers Care Black Mill Operator Name Role Phone Marilia Castillo MD Primary Care Provider [phone] Reason for Visit * Reason Comments Med Refill Encounter Details Date Type Department Care Team ([facility] st Contact Info) Description 02/15/2024 Refill [facility] MED[facility]INE [address] [place], [place] [phone] Maggie Gonzalez MD [address] [place], [place] [phone] Social History Tobacco Use Types Packs/Day Years [...] is your housing situation today? I have radhacris fatima 12/30/[address] you [...] documented as of this encounter Care Teams Black Mill Operator Relationship Specialty Start Date End Date Marilia Castillo MD [address] [place] [address] PCP - General Family Medicine 03/27/23 documented as of this encounter
--- OUTSIDE RECORDS SUMMARY | 2024-07-23 19:39 | XMS_ITS | Encounter Summary ---
Author Organization [facility] Address [address] [place] [phone] Phone Care Team Providers Care Plater Supervisor Name Role Phone Tiffanie Caputo NP Primary Care Provider Jane horton Encounter Details Date Type Department Care Team (Late st Contact Info) Description 07/28/2009 Documentation [facility] [place] [facility] [address] [place] [address] Family Medicine, Physician [address] [place] [address] Social History Tobacco Use Types Packs/Day Years [...] on filedocumented in this encounter Care Teams Plater Supervisor Relationship Specialty Start Date End Date Tiffanie Caputo NP PCP - General 10/18/16 06/19/22 documented as of this encounter
--- OUTSIDE RECORDS SUMMARY | 2024-07-23 19:39 | XMS_ITS | Encounter Summary ---
Author Organization [employer] Address [address] [place] [address] Care Team Providers Care Imager Name Role Phone Marilia Castillo MD Primary Care Provider [phone] Reason for Visit * Reason Comments Med Refill Encounter Details Date Type Department Care Team ([facility] st Contact Info) Description 01/12/2024 Refill [facility] MEDICINE [address] [place], [place] [phone] Maggie Gonzalez MD [address] [place], [place] [phone] Social History Tobacco Use Types Packs/Day Years [...] documented as of this encounter Care Teams Imager Relationship Specialty Start Date End Date Marilia Castillo MD [address] [place] [address] PCP - General Family Medicine 03/27/23 documented as of this encounter
--- OUTSIDE RECORDS SUMMARY | 2024-07-23 19:39 | XMS_ITS | Encounter Summary ---
Author Organization [facility] Address [address] [place] [phone] Phone Care Team Providers Care Sales Enablement Manager Name Role Phone Tiffanie Caputo NP Primary Care Provider Jane horton Encounter Details Date Type Department Care Team (Late st Contact Info) Description 06/24/2015 Documentation [facility] [address] [place] [address] Family Medicine, Physician [facility] [place] [address] Social History Tobacco Use Types Packs/Day Years [...] on filedocumented in this encounter Care Teams Sales Enablement Manager Relationship Specialty Start Date End Date Tiffanie Caputo NP PCP - General 10/18/16 06/19/22 documented as of this encounter
--- OUTSIDE RECORDS SUMMARY | 2024-07-23 19:39 | XMS_ITS | Clinical Summary ---
Author Organization [facility] Address [address] [place] [address] Care Team Providers Care Auditor Internal Name Role Phone Unavailable Primary Care Provider [...] (1 - 3-dose series) 10/12/2019 Meningococcal B Vaccine (1 o f 2 - Standard) 2020 DTaP,Tdap,and Td Vaccines (1 - Tdap) 10/12/2023 Hepatitis B Vaccines (1 of 3 - 19+ 3-dose series) 10/12/2023 COVID-19 Vaccine (1 - 2023-2 5 season) 2023 Influenza Vaccine (Season Ended) 2024 HIB Vaccines Aged Out No longer eligi [...]
--- OUTSIDE RECORDS SUMMARY | 2024-07-23 19:39 | XMS_ITS | Encounter Summary ---
Author Organization [employer] Address [address] [facility] [address] [place] [address] Care Team Providers Care Bingo Attendant Name Role Phone Marilia Castillo MD Primary Care Provider [phone] Reason for Visit * Reason Onset Date Comments Error 07/07/2023 Encounter Details Date Type Department Care Team ([facility] st Contact Info) Description 07/07/2023 Telephone [facility] MEDICINE [address] [place], [place] [phone] Marilia Castillo MD [address] [place], [place] [phone] Error Social History Tobacco Use Types Packs/Day [...] documented as of this encounter Care Teams Bingo Attendant Relationship Specialty Start Date End Date Marilia Castillo MD [address] [place] [address] PCP - General Family Medicine 03/27/23 documented as of this encounter
--- NOTE | 2024-07-23 23:55 | ED_ITS ---
HPI - General Adult General Chief complaint: Abdominal Pain Stated complaint: exposure [facility] Time Seen by Provider: 07/23/24 23:49 Source: patient, RN notes reviewed and old records reviewed Mode of arrival: ambulatory Limitations: no limitations History of Present Illness ED Provider: Tres MAX narrative: 18-year-old female presents for evaluation of lower abdominal cramping x1 week The patient reports that her last menstrual cycle was on 06/14/2024 and she is typically regular but is about 1 week late She denies vaginal bleeding or discharge. She reports unprotected sexual intercourse the week of 06/27/2024 and reports she was told that that individual was positive for chlamydia Denies any burning with urination She has some nausea without vomiting Denies any chills Related Data Home Medications ?Medication ?Instructions ?Recorded ?Confirmed azithromycin 250 mg tablet 250 mg PO DIRECTED 12/17/23 Previous Rx's ?Medication ?Instructions ?Recorded ondansetron HCl 4 mg tablet 4 mg PO Q8H PRN nausea and 03/16/23 vomiting 4 days #14 tabs doxycycline hyclate 100 mg tablet 100 mg PO BID #28 tabs 04/26/24 doxycycline hyclate 100 mg tablet 100 mg PO BID #28 tabs 07/23/24 Allergies Allergy/AdvReac Type Severity Reaction Status Date / Time No Known Allergies Allergy Verified 07/23/24 17:51 Review of Systems 2 Constitutional: Constitutional: Denies body ache(s), Denies chills, Reports fatigue, Denies fever(s), Reports malaise and Reports weakness Eyes: Eyes: Denies blurry vision ENT: Denies vertigo and Denies dizziness Cardiovascular: Cardiovascular: Denies chest pain and Denies dyspnea Respiratory: Respiratory: Denies cough and Denies dyspnea Gastrointestinal: Gastrointestinal: Reports abdominal pain, Reports nausea and Denies vomiting Genitourinary: Genitourinary: Denies difficulty voiding, Reports pelvic pain and Denies vaginal discharge Musculoskeletal: Musculoskeletal: Reports back pain Integumentary/Breasts: Skin/Breast: Denies rash Neurologic: Denies vertigo, Denies dizziness and Reports weakness Endocrine: Endocrine: Reports fatigue PMFSH Past Medical History Medical History No known health problems Social History Social History Alcohol intake: never Patient Tobacco Use Status: Current someday Tobacco user Substance Use Type: Marijuana Advance Directives: No Advance Directives Information Provided: Yes Do you have a plan to hurt others: No Plan Patient : No Physical Exam ED Vital Signs: Vital Signs - 24 hr 07/23/24 17:50 07/23/24 19:25 07/24/24 00:00 Temperature 97.2 F 98.0 F 98.1 F Pulse Rate 87 87 95 Respiratory Rate 16 18 16 Blood Pressure 120/91 H 110/75 107/77 Pulse Oximetry 97 98 99 Oxygen Delivery Method Room Air Room Air Room Air 07/24/24 00:28 Temperature 98.1 F Pulse Rate 95 Respiratory Rate 16 Blood Pressure 107/77 Pulse Oximetry 99 Oxygen Delivery Method Room Air BMI result Body Mass Index 21.1 Const General: healthy appearing, comfortable, no acute distress, alert and awake Nutritional Appearance: well nourished Orientation/consciousness: patient oriented x3 HENMT Head: Yes normocephalic and Yes atraumatic Throat: Yes posterior oropharynx normal Eyes Eyelids: Yes eyelids normal Conjunctivae: conjunctivae normal Sclerae: sclerae normal Corneas: corneas normal Pupils: Equal, round and reactive pupils present EOM: EOMs intact bilaterally Neck Neck: Yes full ROM Resp Effort & Inspection: normal respiratory effort, able to speak in complete sentences and not labored GI Inspection: No distended Palpation (GI): Soft to palpation, not firm, nontender, no guarding and not rigid Other: deferred Skin General skin exam: elasticity normal Neuro General: patient oriented x3 Cranial nerves: Yes Equal, round and reactive pupils present and Yes Bilaterally intact EOM present Cognition (Neuro): normal cognition Extrem Other: Moving all extremities well without any obvious deformities Medications Administered Discontinued Medications Generic Name Dose Route Start Last Admin Trade Name Freq PRN Reason Stop Dose Admin Ceftriaxone Sodium 500 mg/ 0 mg 07/23/24 23:54 07/24/24 00:19 Lidocaine HCl 1 ml IM 07/23/24 23:55 350 kit ONCE ONE Administration Doxycycline Monohydrate 100 mg 07/23/24 23:54 07/24/24 00:18 Doxycycline Monohydrate 100 Mg Capsule PO 07/23/24 23:55 100 mg ONCE ONE Administration Medical Decision Making Medical Decision Making MDM Narrative: 18-year-old female presents for evaluation of pelvic pain and known exposure to chlamydia. The patient had labs, urinalysis and pelvic ultrasound. All this was unremarkable. Given the known exposure to chlamydia, we will treat with ceftriaxone and doxycycline for PID. Body or serology was ordered. Pelvic examination was discussed but ultimately deferred as it would be unlikely to commodity management specialist. Ultrasound already confirms no tubo-ovarian abscess or mass. She is already being treated for PID. Differential Diagnosis Differential Diagnoses: The differential diagnosis associated with the presentation includes PID Pelvic pain Tubo-ovarian abscess Ovarian cyst Lab Data MDM Lab Attestation statement: I reviewed the patient's lab results. No leukocytosis or anemia. Normal platelet count. No electrolyte abnormalities 07/23/24 18:09 07/23/24 18:09 Labs: Lab Results 07/23/24 Range/Units 18:09 WBC 8.0 (4.8-10.8) X10*3/uL RBC 4.66 (4.20-5.50) X10*6/uL Hgb 14.1 (12.0-16.0) g/dl Hct 42.1 (37.0-47.0) % MCV 90.3 (80.0-98.0) fL MCH 30.3 (27.0-33.0) pg MCHC 33.5 (31.0-35.0) g/dl RDW 12.0 (11.0-16.0) % Plt Count 300 (160-400) X10*3/uL MPV 9.0 L (9.4-12.3) fL Absolute Nucleated RBC 0.000 (0.0-0.012) X10*3/uL Nucleated RBC % (auto) 0.0 (0.0-0.2) /100WBC Sodium 139 (135-145) mmol/L Potassium 3.8 (3.3-5.1) mmol/L Chloride 103 (96-108) mmol/L Carbon Dioxide 27 (22-29) mmol/L Anion Gap 13 (12-20) BUN 12 (9-16) mg/dL Creatinine 0.68 (0.5-1.4) mg/dL Estim Creat Clear Calc 114.8 Estimated GFR > 60 Random Glucose 93 (60-115) mg/dL Calcium 9.5 (8.4-10.2) mg/dL Magnesium 2.0 (1.6-2.6) mg/dL Total Bilirubin 0.7 (0.0-1.0) mg/dL AST 25 (5-31) U/L ALT 19 (0-31) U/L Alkaline Phosphatase 90 (39-117) U/L Total Protein 7.9 (6.5-8.0) g/dL Albumin 4.5 (3.5-5.0) g/dL Lipase 24 (8-78) U/L Beta HCG, Quant < 2 mIU/mL Urine Color Yellow Urine Appearance Clear Urine pH 7.0 (5.0-9.0) Ur Specific [place] 1.025 (1.005-1.025) Urine Protein Negative (Neg-Trace) mg/dL Urine Glucose (UA) Negative (Negative) mg/dL Urine Ketones Negative (Negative) mg/dL Urine Blood Negative (Negative) Urine Nitrite Negative (Negative) Ur Leukocyte Esterase Negative (Negative) Radiology Impression Discussion of test interpretation with radiology: I have reviewed the radiologist's reading. Radiologist Impression: Findings: Uterus 6.0 x 2.3 x 4.0 cm. Endometrium 3 mm. No free fluid. Right ovary 3.6 x 3.3 x 3.0 cm. Left ovary 3.7 x 1.8 x 1.4 cm. No significant focal abnormality. Arterial and venous color and spectral Doppler assessment of both ovaries. There is normal flow to both ovaries without evidence for ovarian torsion. Impression: No acute process This document has been electronically signed by: Efraín Olson MD on 07/23/2024 19:45:29 Discharge Plan Discharge Clinical Impression: Pelvic pain Patient Disposition: Home, Self-Care Instructions: Pelvic Pain (ED) Additional Instructions: You were treated for both gonorrhea and chlamydia due to possible exposure. Your test results will not come back today, we will call you if they do result positive. Take the doxycycline twice daily for the remainder of the course. You should avoid sexual intercourse until you completely antibiotics Your blood work, urinalysis and ultrasound were all reassuring without concerning findings Follow-up with your primary doctor, return for new or worsening symptoms Prescriptions: New doxycycline hyclate 100 mg tablet 100 mg PO BID Qty: 28 0RF No Action ondansetron HCl 4 mg tablet 4 mg PO Q8H PRN (Reason: nausea and vomiting) 4 Days Qty: 14 0RF doxycycline hyclate 100 mg tablet 100 mg PO BID Qty: 28 0RF azithromycin 250 mg tablet 250 mg PO DIRECTED Interventions: ED Discharge Assessment Last Done: 07/24/24 00:28 Discharge Date/Time: 07/24/24 00:31 Print Language: Mauritanian
[2024-07-24] VITALS: BP 107/77; PULSE 95; RESP 16; TEMP 36.7; O2SAT 99
[2024-07-24] MEDS: Doxycycline Monohydrate 100 MG CAPSULE PO (00:18)
[2024-07-24] MEDS: cefTRIAXone sodium 500 MG, Lidocaine HCl 1 % MPF 1 ML IM (00:19)
--- NOTE | 2024-07-24 00:25 | PC.NURSE ---
Pt a&ox4, no signs of distress. Friends at bedside Pt sitting up in bed speaking with friends Pt medicated per mar Plan of care ongoing.
[2024-07-24 00:28] VITALS: BP 107/77; PULSE 95; RESP 16; TEMP 36.7; O2SAT 99
[2024-07-24 15:33] LABS: CT PCR DETECTED (Not Detect.); NG PCR NOT DETECTED (Not Detect.)
== END 2024-07-24 00:31 | disposition home or self-care (01) ==
PROVIDERS: Physician Assistant; Emergency Provider Emergency Medicine
DX: A74.9 Chlamydial infection, unspecified (principal); R25.2 Cramp and spasm; R10.2 Pelvic and perineal pain; F17.210 Nicotine dependence, cigarettes, uncomplicated; Z20.2 Contact with and (suspected) exposure to infections with a predominantly sexual mode of transmission; Z79.899 Other long term (current) drug therapy
CPT/HCPCS: 36415; 76830; 76856; 80053; 81003; 83690; 83735; 84702; 85027; 87491; 87591; 93975; 96372; 99284; J0696; J2003

== ENCOUNTER → 2024-07-23 18:24 | Outpatient (BNV) | payer OTHER, MEDICAID, SELFPAY | PROVIDERS: Visit Provider Radiology Diagnostic Radiology | DX: R10.2 Pelvic and perineal pain (principal) | CPT/HCPCS: 93975 ==

== ENCOUNTER 2024-09-13 13:32 | Outpatient (REF) | payer OTHER, MEDICAID, SELFPAY ==
--- OUTSIDE RECORDS SUMMARY | 2024-09-13 13:59 | XMS_ITS | Clinical Summary ---
Author Organization [facility] Address [address] [place] [address] Care Team Providers Care Rn Internal Medicine Name Role Phone Unavailable Primary Care Provider [...] 2023-2 5 season) 2023 Influenza Vaccine (#1) 2024 HIB Vaccines Aged Out No longer [...] 5 Years) and At-Risk Patients (6 to 49 Years) Aged Out No longer eligible b ased on patient's age to complete this topic RSV Immunization Patients Un [place] 20 months Aged Out No longer eligible b ased on patient's age to complete this topic
--- OUTSIDE RECORDS SUMMARY | 2024-09-13 13:59 | XMS_ITS | Encounter Summary ---
Author Organization [facility] Address [address] [place] [phone] Phone Care Team Providers Care Resource Efficiency Manager Name Role Phone Tiffanie Caputo NP Primary Care Provider Jane horton Encounter Details Date Type Department Care Team (Late st Contact Info) Description 06/24/2015 Documentation [facility] Family Medicine [address] [place] [address] Family Medicine, Physician Replaced by [facility] [place] [address] Social History Tobacco Use Types Packs/Day Years [...] on filedocumented in this encounter Care Teams Resource Efficiency Manager Relationship Specialty Start Date End Date Tiffanie Caputo NP PCP - General 10/18/16 06/19/22 documented as of this encounter
[2024-09-13 15:11] LABS: CT PCR NOT DETECTED (Not Detect.); NG PCR NOT DETECTED (Not Detect.)
== END 2024-09-13 13:33 | disposition home or self-care (01) ==
LOC: HO.HHCLNP 13:32
PROVIDERS: Visit Provider Advanced Practice Midwife
DX: N89.8 Other specified noninflammatory disorders of vagina (principal)
CPT/HCPCS: 87491; 87591; 87661

== ENCOUNTER 2024-10-02 14:04 | Outpatient (REF) | payer OTHER, MEDICAID, SELFPAY ==
[2024-10-02 15:29] LABS: Bacterial Vaginosis PCR NEGATIVE (Negative); Candida Group PCR NOT DETECTED (Not Detect); Candida glab krusei PCR NOT DETECTED (Not Detect); Trichomonas vaginalis PCR NOT DETECTED (Not Detect)
[2024-10-02 15:58] LABS: CT PCR NOT DETECTED (Not Detect.); NG PCR NOT DETECTED (Not Detect.)
== END 2024-10-02 14:05 | disposition home or self-care (01) ==
LOC: HO.LNP 14:04
PROVIDERS: Visit Provider Internal Medicine
DX: Z11.3 Encounter for screening for infections with a predominantly sexual mode of transmission (principal); Z11.8 Encounter for screening for other infectious and parasitic diseases; N76.0 Acute vaginitis; R39.9 Unspecified symptoms and signs involving the genitourinary system
CPT/HCPCS: 81515; 87086; 87491; 87591

== ENCOUNTER 2024-10-06 15:08 | Outpatient (REF) | payer OTHER, MEDICAID, SELFPAY ==
--- OUTSIDE RECORDS SUMMARY | 2024-10-06 15:51 | XMS_ITS | Encounter Summary ---
Author Organization [employer] Address [address] [place] [address] Care Team Providers Care Mineral Resources Inspector Name Role Phone Marilia Castillo MD Primary Care Provider [phone] Encounter Details Date Type Department Care Team ([facility] st Contact Info) Description 10/04/2024 Telephone [facility] MEDICINE [address] [place], [place] [phone] Linda Gamez, [facility] [address] [place], [place] [phone] Social History Tobacco Use Types Packs/Day Years Used Date Smoking Tobacco: Never Passive Smoke Exposure: Never Smokeless Tobacco: Never Comments:Pt vapes Alcohol Use Standard Drinks/Week Comments Never 0 (1 standard drink = 0.6 oz pur e alcohol) Depression Answer Date Recorded Patient Health Questionnaire-9 Score 0 09/13/2024 Patient Health Questionnaire-9 Score 0 09/13/2024 Last PHQ-9: Questionnaire Data Not on file 0 09/13/2024 Housing Stability Answer Date Recorded What is [...] Date Recorded Patient Health Questionnaire-2 Score 0 09/13/2024 Comments No Sex and Gender Information Value Date Recorded Sex Assigned at Female 12/05/2022 1:28 PM EDT Legal Sex Female 1:24 PM EDT Gender Identity Female 12/05/2022 1:28 PM EDT Sexual Orientation Don't know 01/01/2023 2: 23 PM EDT documented as of this encounter Miscellaneous Notes * Telephone Encounter - Jennifer Zaragoza - 10/04/2024 10:23 AM EDT Pt no showed to apt on 10/04/2024 documented in this encounter Plan of Treatment Not on file documented as of this encounter Visit Diagnoses Not on filedocumented in this encounter Additional Health Concerns Assessment Noted Time PHQ-9 Depression Total Score: 0 09/14/19 25 9:20 AM EDT documented as of this encounter Care Teams Mineral Resources Inspector Relationship Specialty Start Date End Date Marilia Castillo MD [address] [place] [phone] PCP - General Family Medicine 03/27/23 documented as of this encounter
--- OUTSIDE RECORDS SUMMARY | 2024-10-06 15:51 | XMS_ITS | Clinical Summary ---
Author Organization [facility] Address [address] [place] [address] Care Team Providers Care Wax Cutter Name Role Phone Unavailable Primary Care Provider [...] Vaccine (1 - 2023-2 5 season) 2023 Depression Screening 03/10/2024 Influenza Vaccine (#1) 2024 HIB Vaccines Aged [...]
--- OUTSIDE RECORDS SUMMARY | 2024-10-06 15:51 | XMS_ITS | Encounter Summary ---
Author Organization [facility] Address [address] [place] [phone] Phone Care Team Providers Care Sales Promotion Director Name Role Phone Tiffanie Caputo NP Primary Care Provider Jane hroton Encounter Details Date Type Department Care Team (Late st Contact Info) Description 06/24/2015 Documentation [facility] Family Medicine [address] [place] [address] Family Medicine, [place] [address] Social History Tobacco Use Types Packs/Day Years [...] filedocumented in this encounter Care Teams Sales Promotion Director Relationship Specialty Start Date End Date Tiffanie Caputo NP PCP - General 10/18/16 06/19/22 documented as of this encounter
== END 2024-10-06 15:09 | disposition home or self-care (01) ==
LOC: HO.HHCL 15:08
PROVIDERS: PCP Family Medicine; Visit Provider Advanced Practice Midwife
DX: R79.89 Other specified abnormal findings of blood chemistry (principal)
CPT/HCPCS: 36415; 84146

== ENCOUNTER 2024-11-04 10:31 | Outpatient (REF) | payer OTHER, MEDICAID, SELFPAY ==
--- NOTE | ~2024-11-04 | US_ITS ---
EXAMINATION: US ABDOMEN LIMITED CLINICAL INFORMATION: Left-sided abdominal pain.. COMPARISON: Correlated to CT dated May 16, 2023. TECHNIQUE: Real-time ultrasound of the spleen and left kidney using grayscale and color Doppler technique. FINDINGS: Spleen measures 10 cm. No focal lesion. Left kidney measures 10 cm. Normal echotexture. Normal renal cortical thickness. No hydronephrosis. Prominent pelvicalyceal system. No gross solid or cystic lesion detected by the technologist. US/US abdomen limited IMPRESSION: No hydronephrosis. Normal-sized spleen. Electronically signed by: Nitin Hunt MD 11/04/2024 10:54 AM EDT
--- OUTSIDE RECORDS SUMMARY | 2024-11-04 11:50 | XMS_ITS | Encounter Summary ---
Author Organization [employer] Address [address] [place] [address] Care Team Providers Care Propeller Layout Worker Name Role Phone Marilia Castillo MD Primary Care Provider [phone] Encounter Details Date Type Department Care Team ([facility] st Contact Info) Description 03/29/2023 Orders Only [facility] MEDICINE [address] [place], [place] [phone] Marilia Castillo MD [address] [place], [place] [phone] Irregular menstruation (Primary Dx) Social History Tobacco [...] EST) Lipase 30 8 - 78 U/L [facility] 05/16/2023 5:03 AM EST 05/16/2023 5:07 AM EST us Generic External Data Provider LAB BLOOD ORDERAB LES Final Result [facility] [address] [place] [address] [phone] * Hepatic Function Panel (05/16/2023 5:03 AM EST) Bilirubin, Total 0.4 0.0 - 1.0 mg/dL [facility] Bilirubin, Direct 0.1 0.0 - 0.5 mg/dL [facility] Aspartate Amino Transferase 20 5 - 31 U/L [facility] Alanine Aminotransferase 18 0 - 31 U/L [facility] Total Protein 7.1 6.5 - 8.0 g/dL [facility] Albumin Level 4.0 3.5 - 5.0 g/dL [facility] Alkaline Phosphatase 87 39 - 117 U/L [facility] 05/16/2023 5:03 AM EST 05/16/2023 5:07 AM EST Generic External Data Provider LAB BLOOD ORDERAB LES Final Result Performing Organization Address [facility] Co de Phone Number [facility] [address] [place] [address] [phone] * (ABNORMAL) Basic Metabolic Panel (05/16/2023 5:03 AM EST) [facility] Sodium 141 135 - 145 mmol/L [facility] Potassium 3.9 3.3 - 5.1 mmol/L [facility] Chloride 105 96 - 108 mmol/L [facility] Carbon Dioxide 29 22 - 29 mmol/L [facility] Anion Gap 11(L) 12 - 20 [facility] Urea Nitrogen (BUN) 14 9 - 16 mg/dL [facility] Creatinine, Serum 0.67 0.5 - 1.4 mg/dL [facility] Creatinine Clr Calc Pharmacy TNP [facility] Comment:Cannot be calculated ; patient is less than 19 years old. Estimated Glomerular Filt Rate >60 [facility] Comment:NOTE: For -Am erican individuals, multiply the result by 1.210.Chronic Kidney Disease: Estimated GFR < 60 mL/min/1.02j5Dynvtx Kidney Disease: Estimated GFR < 15 mL/min/1.73m2 Glucose 88 60 - 115 mg/dL [facility] Calcium 9.3 8.4 - 10.2 mg/dL [facility] 05/16/2023 5:03 AM EST 05/16/2023 5:07 AM EST Generic External Data Provider LAB BLOOD ORDERAB LES Final Result Performing Organization Address City/[facility]/ZIP Co de Phone Number [facility] [address] [place] [address] [phone] * HCG, Qualitative, Urine (05/16/2023 5:03 AM EST) Urine NEGATIVE NEGATIVE [facility] Comment:This test was develo ped to detect early . Falsenegative results may occur after the 5th - 7th week ofpregnancy when using this test method. If clinicallyindicated, consider a serum hCG. 05/16/2023 5:03 AM EST 05/16/2023 5:07 AM EST us Generic External Data Provider LAB URINE ORDERAB LES Final Result Performing Organization Address City/[facility]/ZIP Co de Phone Number [facility] [address] [place] [address] [phone] * Urinalysis w/reflex microscopic (05/16/2023 5:03 AM EST) Color Urine Yellow [facility] Appearance Urine Turbid [facility] PH 8.5 5.0 - 9.0 [facility] Glucose Urine UA Negative Negative mg/dL [facility] Urine Blood Negative Negative [facility] Specific [place] - Urine 1.020 1.005 - 1.025 [facility] Urine Protein Negative Neg-Trace mg/dL [facility] Urine Ketones Negative Negative mg/dL [facility] Nitrite Urine Negative Negative [facility] Leukocyte Esterase Urine Negative Negative [facility] 05/16/2023 5:03 AM EST 05/16/2023 5:07 AM EST Narrative [facility] - 05/16/2023 5:12 AM EST [id number], Clean Catch us Generic External Data Provider LAB URINE ORDERAB LES Final Result [facility] [address] [place] [address] [phone] * (ABNORMAL) CBC auto differential (05/16/2023 5:03 AM EST) White Blood Count 10.9(H) 4.8 - 10.8 X10*3/uL [facility] Red Blood Count 4.46 4.20 - 5.50 X10*6/uL [facility] Hemoglobin 13.1 12.0 - 16.0 g/dl [facility] Hematocrit 39.0 37.0 - 47.0 % [facility] Mean Corpuscular Volume 87.4 80.0 - 98.0 fL [facility] Mean Corpuscular Hemoglobin 29.4 27.0 - 33.0 pg [facility] Mean Corpuscular HGB Conc 33.6 31.0 - 35.0 g/dl [facility] Red Cell Distribution Width 12.1 11.0 - 16.0 % [facility] Platelet Count 277 160 - 400 X10*3/uL [facility] Mean Platelet Volume 8.9(L) 9.4 - 12.3 fL [facility] Neutrophils Percent Auto 60.6 45 - 73 % [facility] Imm Gran Pct Auto 0.2 0.0 - 0.4 % [facility] Lymphocytes Percent Auto 29.1 20 - 40 % [facility] Monocytes Percent Auto 7.9 2 - 11 % [facility] Eosinophils Percent Auto 1.8 0 - 4 % [facility] Basophils Percent Auto 0.4 0 - 2 % [facility] NRBC Pct Auto 0.0 0.0 - 0.2 /100WBC [facility] Neutrophils Absolute Auto 6.6 2.0 - 8.3 x10*3/uL [facility] Imm Gran Abs Auto 0.02 0.00 - 0.03 X10*3/uL [facility] Lymphocytes Absolute Auto 3.2 1.2 - 4.9 X10*3/uL [facility] Monocytes Absolute Auto 0.9 0.1 - 1.2 X10*3/uL [facility] Eosinophils Absolute Auto 0.2 0.0 - 0.4 X10*3/uL [facility] Basophils Absolute Auto 0.0 0.0 - 0.2 X10*3/uL [facility] NRBC Abs Auto 0.000 0.0 - 0.012 X10*3/uL [facility] 05/16/2023 5:03 AM EST 05/16/2023 5:07 AM EST us Generic External Data Provider LAB BLOOD ORDERAB LES Final Result Performing Organization Address City/State/[facility] Co de Phone Number [facility] [address] [place] [phone] * US Pelvis Transvaginal (04/24/2023 12:01 PM EST) Anatomical Region Laterality Modality Pelvis Ultrasound 04/24/2023 12:0 1 PM EST Narrative 04/25/2023 1:02 PM EST [address] [address] Ultrasound Report Signed Patient: Vi Garner MR# : [id number] : 2005 Acct:[id number] Age/Sex: 17 / F ADM Date: 04/24/23 Loc: HO.US Attending Dr: Marilia Castillo MD Ordering Physician: Marilia Castillo MD Date of Service: 04/24/23 Procedure(s): US pelvic and transvaginal Accession Number(s): [id number] cc: Marilia Castillo MD EXAMINATION: US PELVIS [...] in OV> 04/25/23 1258 DD/ 1201 TD/TT: Cardiac Surgeon: POONAM Procedure Note Donotuseinterpreter, Image - 04/25/2023 [place] [address] Ultrasound Report Signed Patient: Vi Garner [facility]# : [id number] : 2005Acct:[id number] Age/Sex: 17 / FADM Date: 04/24/23 Loc: . Attending Dr: Marilia Castillo MD Ordering Physician: Marilia Castillo MD Date of Service: 04/24/23 Procedure(s): US pelvic and transvaginal Accession Number(s): [id number] cc: Marilia Castillo MD EXAMINATION: US PELVIS [...] in OV> 04/25/23 1258 DD/ 1201 TD/TT: Cardiac Surgeon: POONAM us Marilia Castillo MD IMG US PROCEDURES Edited Result - Final documented in this encounter Visit Diagnoses Diagnosis Irregular menstruation- Primary Irregular menstrual cycle documented in this encounter Additional Health Concerns Assessment Noted Time PHQ-9 Depression Total Score: 0 03/27/19 9:28 AM EST documented as of this encounter Care Teams Propeller Layout Worker Relationship Specialty Start Date End Date Marilia Castillo MD [address] [place] [phone] PCP - General Family Medicine 03/27/23 documented as of this encounter
--- OUTSIDE RECORDS SUMMARY | 2024-11-04 11:50 | XMS_ITS | Encounter Summary ---
Author Organization [employer] Address [address] [facility] [address] [place] [address] Care Team Providers Care Rodding Anode Worker Name Role Phone Marilia Castillo MD Primary Care Provider [phone] Reason for Visit * Reason Comments Med Refill Encounter Details Date Type Department Care Team ([facility] st Contact Info) Description 02/15/2024 Refill [facility] MEDICINE [address] [place] [address] Maggie Gonzalez MD [address] [place] [address] Social History Tobacco Use Types Packs/Day Years [...] documented as of this encounter Care Teams Rodding Anode Worker Relationship Specialty Start Date End Date Marilia Castillo MD [address] [place] [address] PCP - General Family Medicine 03/27/23 documented as of this encounter
--- OUTSIDE RECORDS SUMMARY | 2024-11-04 11:50 | XMS_ITS | Encounter Summary ---
Author Organization [employer] Address [address] [place] [address] Care Team Providers Care Veterans Service Representative Name Role Phone Marilia Castillo MD Primary Care Provider [phone] Encounter Details Date Type Department Care Team ([facility] st Contact Info) Description 09/14/2024 Results Follow-Up [facility] MEDICINE [address] [place] [address] Linda Gamez, LAURIE [address] [place] [address] Chlamydia/N. Gonorrhoeae RNA, TMA, Vagina Social History Tobacco Use Types Packs/Day Years [...] documented as of this encounter Care Teams Veterans Service Representative Relationship Specialty Start Date End Date Marilia Castillo MD [address] [place] [address] PCP - General Family Medicine 03/27/23 documented as of this encounter
--- OUTSIDE RECORDS SUMMARY | 2024-11-04 11:50 | XMS_ITS | Clinical Summary ---
Author Organization [facility] Address [address] [place] [address] Care Team Providers Care Primary Care Pediatrician Name Role Phone Unavailable Primary Care Provider [...]
--- OUTSIDE RECORDS SUMMARY | 2024-11-04 11:50 | XMS_ITS | Encounter Summary ---
Author Organization [employer] Address [address] [facility] [address] [place] [address] Care Team Providers Care Maintenance Inspector Name Role Phone Marilia Castillo MD Primary Care Provider [phone] Reason for Visit * Reason Comments Med Refill Encounter Details Date Type Department Care Team ([facility] st Contact Info) Description 01/12/2024 Refill [facility] MEDICINE [address] [place] [address] Maggie Gonzalez MD [address] [place] [address] Social History Tobacco Use Types Packs/Day Years [...] as of this encounter Care Teams Maintenance Inspector Relationship Specialty Start Date End Date Marilia Castillo MD [address] [place] [address] PCP - General Family Medicine 03/27/23 documented as of this encounter
--- OUTSIDE RECORDS SUMMARY | 2024-11-04 11:50 | XMS_ITS | Encounter Summary ---
Author Organization [employer] Address [address] [facility] [address] [place] [address] Care Team Providers Care Associate Property Manager Name Role Phone Marilia Castillo MD Primary Care Provider [phone] Reason for Visit * Reason Onset Date Comments Med Refill 07/01/2023 Encounter Details Date Type Department Care Team (Late st Contact Info) Description 07/01/2023 Refill [facility] MEDICINE [address] [place] [address] Maggie Gonzalez MD [address] [place] [address] Social History Tobacco Use Types Packs/Day Years [...] documented as of this encounter Care Teams Associate Property Manager Relationship Specialty Start Date End Date Marilia Castillo MD [address] [place] [address] PCP - General Family Medicine 03/27/23 documented as of this encounter
--- OUTSIDE RECORDS SUMMARY | 2024-11-04 11:50 | XMS_ITS | Encounter Summary ---
Author Organization [facility] Address [address] [place] [phone] Phone Care Team Providers Care Pecan Gatherer Name Role Phone Tiffanie Caputo NP Primary Care Provider Jane horton Encounter Details Date Type Department Care Team (Late st Contact Info) Description 07/28/2009 Documentation [facility] [place] [address] [place] [address] Family Medicine, Physician [address] [place] [address] Social History Tobacco Use Types Packs/Day Years [...] on filedocumented in this encounter Care Teams Pecan Gatherer Relationship Specialty Start Date End Date Tiffanie Caputo NP PCP - General 10/18/16 06/19/22 documented as of this encounter
--- OUTSIDE RECORDS SUMMARY | 2024-11-04 11:50 | XMS_ITS | Encounter Summary ---
Author Organization [facility] Address [address] [place] [phone] Phone Care Team Providers Care Label Machine Operator Name Role Phone Tiffanie Caputo NP Primary Care Provider Jane horton Encounter Details Date Type Department Care Team (Late st Contact Info) Description 06/24/2015 Documentation [facility] [place] Family Medicine [address] [place] [address] Family Medicine, Physician [facility] [place] [address] Social History Tobacco Use Types Packs/Day Years [...] on filedocumented in this encounter Care Teams Label Machine Operator Relationship Specialty Start Date End Date Tiffanie Caputo NP PCP - General 10/18/16 06/19/22 documented as of this encounter
--- OUTSIDE RECORDS SUMMARY | 2024-11-04 11:50 | XMS_ITS | Encounter Summary ---
Author Organization [facility] Address [address] [place] [phone] Phone Care Team Providers Care System Support Administrator Name Role Phone Tiffanie Caputo NP Primary Care Provider Jane horton Encounter Details Date Type Department Care Team (Late st Contact Info) Description 06/25/2013 Documentation [facility] [place] Family Medicine [address] [place] [address] Family Medicine, Physician [facility] [place] [address] Social History Tobacco Use Types Packs/Day Years [...] on filedocumented in this encounter Care Teams System Support Administrator Relationship Specialty Start Date End Date Tiffanie Caputo NP PCP - General 10/18/16 06/19/22 documented as of this encounter
--- OUTSIDE RECORDS SUMMARY | 2024-11-04 11:50 | XMS_ITS | Clinical Summary ---
Author Organization [employer] Address [address] [facility] 7t [place] [address] Care Team Providers Care Business Integration Analyst Name Role Phone Marilia Castillo MD Primary Care Provider [phone] Allergies Active Allergy Reactions Criticality Noted Date Comments Other 12/04/2016 Cat dander, dog dander, feathers, mold, ragweed, and rabbits Medications FLUoxetine (PROzac) 10 MG capsule 4 Active triamcinolone (Kenalog) 0.1 % creamIndications :Insect bite of ankle, unspecified laterality, initial encounter Apply to affected area BID till improved. 30 g 4 Active valACYclovir (Valtrex) 1 g tablet TAKE 2 TABLETS BY MOUTH TWICE A DAY FOR 1 DAY AT EARLIEST SIGNS AND SYMPTOMS OF ONSET 12 tablet 1 5 Active metroNIDAZOLE (Flagyl) 500 MG tablet Take 1 tablet (500 mg) by mouth 2 times daily for 7 days. 14 tablet 5 10/10/19 25 Active Problems Problem Noted Date Diagnosed Date [...] Encounters Date Type Department Care Team Description 10/04/2024 Telephone [facility] [address] [place] [phone] Linda Gamez CNM 10/02/2024 12:20 PM EDT Office Visit [facility] [address] [place] [phone] Pinky Bueno MD Acute vaginitis (Primary Dx); Abdominal pain, unspecified abdominal location; UTI symptoms 10/02/2024 Orders Only [address] [address] Pinky Bueno MD 10/02/2024 Travel 10/01/[address] [address] Marilia Castillo MD Nurse Triage 09/22/2024 Orders Only [address] [address] Linda Gamez CNM Vaginal discharge (Primary Dx) 09/14/2024 Results Follow-Up [address] [address] Linda Gamez CNM Chlamydia/N. Gonorrhoeae RNA, TMA, Vagina 09/13/2024 9:15 AM EDT Office Visit [address] [address] Linda Gamez CNM Vaginal discharge (Primary Dx); Elevated prolactin level; Pelvic pain 09/13/[address] [address] Marilia Castillo MD 09/13/2024 Travel 09/09/2024 Telephone [facility] [address] [place] [address] Marilia Castillo MD chartprep 09/07/2024 Telephone [facility] [address] [place] [address] Marilia Castillo MD Nurse Triage from Last 3 Months Immunizations Immunization Administration [...] unspecified 10/17/2015 Meningococcal MCV4P ACYW-135 10/17/2015 Novel [id number], all formulations 02/24/2009,01/19/2009 Pneumococcal Conjugate PCV 13 01/19/2009 ,04/25/2005,02/12/2005,12/13 Pneumococcal Conjugate PCV 7 01/28/2006, 04/25/2005,02/12/2005,12/13 Tdap 08/31/2020,10/17/2015 Varicella 01/19/2009,10/25/2005 Social History Tobacco Use Types Packs/Day Years Used Date Smoking Tobacco: Never Passive Smoke Exposure: Never Smokeless Tobacco: Never Tobacco Cessation:Counseling Given: Not Answered Comments:Pt vapes Alcohol Use Standard Drinks/Week Comments [...] Health Questionnaire-2 Score 0 09/13/2024 Comments No Intention Date Recorded No desire to become (finding) 0 09/13/2024 Sex and Gender Information Value Date Recorded Sex Assigned at Female 12/05/2022 1:28 PM EDT Legal Sex Female 1:24 PM EDT Gender Identity Female 12/05/2022 1:28 PM EDT Sexual Orientation Don't know 01/01/2023 2: 23 PM EDT Last Filed Vital Signs Vital Sign Reading Time Taken Comments Blood Pressure 107/67 10/02/2024 12:27 PM EDT Pulse 90 10/02/2024 12:27 PM EDT Temperature 36.6 C (97.8 F) 10/02/2024 12:27 PM EDT Respiratory Rate 20 10/02/2024 12:27 PM EDT Oxygen Saturation 100% 12/16/2023 10:28 AM EDT Inhaled Oxygen Concentration - - Weight 59.6 kg (131 lb 6.4 oz) 10/02/2024 12:27 PM EDT Height 162.6 cm (5' 4 ) 10/02/2024 12:27 PM EDT Body Mass Index 22.55 10/02/2024 12:27 PM EDT Plan of Treatment Health Maintenance Due Date Last Done Comments Meningococcal B Vaccine (1 of 2 - Standard) 2020 COVID-19 Vaccine ( - season) 2023 SDOH Screening 03/19/2024 03/19/2023 Influenza Vaccine (#1) 2024 9, 12/16/2018, 12/22/2015, Additional history exists Alcohol/Substance Use Screening 09/13/2025 09/13/2024 Depression Screening 09/13/2025 09/13/2024, 09/14/19 25 Disability Screening 09/13/2025 09/13/2024 Family Planning (PISQ) 09/13/2025 09/13/2024 Chlamydia and Gonorrhea Screening 10/02/2025 10/02/2024, 09/13/2024, 07/23/2024, Additional history exists Tobacco Screening 10/02/2025 10/02/2024 DTaP/Tdap/Td Vaccines (8 - Td or Tdap) 08/31/2030 08/31/2020, 10/17/2015, 01/19/2009, Additional history exists Zoster Vaccines (1 of 2) 2054 RSV Patients and Patients Aged 60 years or older (1 - 1-dose 75+ series) 10/12/2079 IPV Vaccines Completed 01/19/2009, 01/08, 04/25/2005, Additional history exists Pneumococcal Vaccine: Pediatrics (0 to 5 Years) and At-Risk Patients (6 to 49) Years Completed 01/19/2009, 01/28/2006, 04/25/2005, Additional history exists HIB Vaccines Completed 02/24/2009, 01/09, 01/28/2006, Additional [...] Procedure Name Priority Date/Time Associated Diagnosis Comments US ABDOMEN LIMITED Routine 11/04/2024 10 :40 AM EDT PROLACTIN Routine 10/06/2024 3:10 PM EDT Elevated prolactin level BACTERIAL VAGINOSIS PANEL Routine 10/02/2024 12:56 PM EDT CULTURE, URINE, ROUTINE Routine 10/02/2024 12:56 PM EDT UTI symptoms CHLAMYDIA/N. GONORRHOEAE RNA, TMA, UROGENITAL Routine 10/02/2024 12:56 PM EDT Acute vaginitis POCT URINALYSIS DIPSTICK Routine 10/02/2024 12:44 PM EDT UTI symptoms POCT WET MOUNT/JENNY Routine 09/13/2024 9: 42 AM EDT Vaginal discharge TRICHOMONAS VAGINALIS RNA, QUALITATIVE, TMA Routine 09/13/2024 9:32 AM EDT Vaginal discharge CHLAMYDIA/N. GONORRHOEAE RNA, TMA, UROGENITAL Routine 09/13/2024 9:32 AM EDT Vaginal discharge HEPATITIS C AB W/REFL TO HCV RNA, QN, PCR Routine 03/27/2023 10:37 AM EST Routine screening for STI (sexually transmitted infection) HIV 1/2 ANTIGEN/ANTIBODY, FOURTH GENERATION W/RFL Routine 03/27/2023 10:37 AM EST Routine screening for STI (sexually transmitted infection) from Last 3 Months or Most Recently Relevant to Health Maintenance Results * US Abdomen Limited (11/04/2024 10:40 AM EDT) Anatomical Region Laterality Modality Abdomen Ultrasound 11/04/2024 10:4 0 AM EDT Narrative 11/04/2024 10:57 AM EDT [place] [address] Ultrasound Report Signed Patient: Vi Garner MR# : [id number] : 2005 Acct:[id number] Age/Sex: 19 / F ADM Date: 11/04/24 Loc: . Attending Dr: Pinky Bueno MD Ordering Physician: Pinky Bueno MD Date of Service: 11/04/24 Procedure(s): US abdomen limited Accession Number(s): [id number] cc: Pinky Bueno MD; Marilia Castillo MD EXAMINATION: US ABDOMEN LIMITED CLINICAL INFORMATION: Left-sided abdominal pain.. COMPARISON: Correlated to CT dated May 16, 2023. TECHNIQUE: Real-time ultrasound of the spleen and left kidney using grayscale and color Doppler technique. FINDINGS: Spleen measures 10 cm. No focal lesion. Left kidney measures 10 cm. Normal echotexture. Normal renal cortical thickness. No hydronephrosis. Prominent pelvicalyceal system. No gross solid or cystic lesion detected by the technologist. US/US abdomen limited IMPRESSION: No hydronephrosis. Normal-sized spleen. Electronically signed by: Nitin Hunt MD 11/04/2024 10:54 AM EDT RP Dictated By: Nitin Lam MD Signed By: <Electronically signed by Nitin Sylvesetr MD in OV> 11/04/24 1054 DD/ 1040 TD/TT: 11/04/24 1044 Manager [place]: Procedure Note Donotuseinterpreter, Image - 11/04/2024 [place] [address] Ultrasound Report Signed Patient: Vi Garner [facility]# : [id number] : 2005Acct:[id number] Age/Sex: 19 / FADM Date: 11/04/24 Loc: HO.US Attending Dr: Pinky Bueno MD Ordering Physician: Pinky Bueno MD Date of Service: 11/04/24 Procedure(s): US abdomen limited Accession Number(s): [id number] cc: Pinky Bueno MD; Marilia Castillo MD EXAMINATION: US ABDOMEN LIMITED CLINICAL INFORMATION: Left-sided abdominal pain.. COMPARISON: Correlated to CT dated May 16, 2023. TECHNIQUE: Real-time ultrasound of the spleen and left kidney using grayscale and color Doppler technique. FINDINGS: Spleen measures 10 cm. No focal lesion. Left kidney measures 10 cm. Normal echotexture. Normal renal cortical thickness. No hydronephrosis. Prominent pelvicalyceal system. No gross solid or cystic lesion detected by the technologist. US/US abdomen limited IMPRESSION: No hydronephrosis. Normal-sized spleen. Electronically signed by: Nitin Hunt MD 11/04/2024 10:54 AM EDT RP Dictated By: Nitin Lam MD Signed By: <Electronically signed by Nitin Sylvester MDin OV> 11/04/24 1054 DD/ 1040 TD/TT: 11/04/24 1044 Manager [place]: us Pinky Bueno MD IMG US PROCEDURES Final Result * Prolactin (10/06/2024 3:10 PM EDT) Pathologist [facility] Prolactin 14.1 ng/mL [facility] Comment:Reference Range Fema les Non- 3.0-30.0 10.0-209.0 Postmenopausal 2.0-20.0THIS TEST WAS PERFORMED AT:[facility] [place] [id number] ROJO MD Blood Venous blood specimen / Unknown 10/06/2024 3:10 PM EDT 10/06/2024 3:57 PM EDT us Linda Gamez [facility] BLOOD ORDERABLES Danni l Result [facility] [address] [place] [phone] * Bacterial Vaginosis (10/02/2024 12:56 PM EDT) Pathologist [facility] TRICHOMONAS VAGINALIS DETECTION BY PCR NOT DETECTED Not Detect [facility] BACTERIAL VAGINOSIS DETECTION BY PCR NEGATIVE Negative [facility] Comment:The BV organism targ ets of the Xpert Xpress MVP test can becommensal in women; Xpert Xpress MVP positive results forbacterial vaginosis should be considered in conjunction withother clinical and patient information to determine thedisease status. Organisms that are not detected by the XpertXpress MVP test have also been reported to be associatedwith BV and aerobic vaginitis.The Xpert Xpress MVP test performance has not been evaluatedin patients under the age of 14. LEILA GROUP DETECTION BY PCR NOT DETECTED Not Detect [facility] Leila glab krusei PCR NOT DETECTED Not Detect [facility] 10/02/2024 12:5 6 PM EDT 10/02/2024 2:06 PM EDT us Pinky Bueno MD LAB MICROBIOLOGY - GENER AL ORDERABLES Final Result [facility] [address] [place] [phone] [phone] * Chlamydia/N. Gonorrhoeae RNA, TMA, Urogenitial (10/02/2024 12:56 PM EDT) Only the most recent of2 resultswithin the time period is included. CT PCR NOT DETECTED Not Detect. [facility] Comment:A not detected test result [...] psychologicalconsequences. NG PCR NOT DETECTED Not Detect. [facility] Comment:A not detected test result [...] medical, social or psychologicalconsequences. Swab (Vaginal Swab) 10/02/2024 12:56 PM EDT 10/02/2024 2:07 PM EDT Pinky Bueno MD LAB MICROBIOLOGY - GENER AL ORDERABLES Final Result Performing Organization Address [facility] Co de Phone Number [facility] [address] [place] [phone] * Culture, Urine, Routine (10/02/2024 12:56 PM EDT) Urine Urine specimen obtained by clean catch procedure / Unknown 10/02/2024 12:56 PM EDT 10/02/2024 2:07 PM EDT Comment:UACC Narrative [facility] - 10/03/2024 9:02 AM EDT Urine Culture No growth. Specimen Source: Urine clean catch Pinky Bueno MD LAB MICROBIOLOGY - GENER AL ORDERABLES Final Result Performing Organization Address [facility] Phone Number [facility] [address] [place] [phone] * POCT Urinalysis (10/02/2024 12:44 PM EDT) Color, UA Yellow Clarity, UA Clear Glucose, UA Negative Bilirubin, UA Negative Ketones, UA Negative Spec Grav, UA 1.025 Blood, UA Negative Negative, None Detected pH, UA 6.5 Protein, UA Negative Urobilinogen, UA 0.2 Leukocytes, UA Trace Negative, Rare, Trace Nitrite, UA Negative Negative, None Detected Appearance, UA Yellow QC Media Lot # [id number] Lot# Expiration Date ,984 Urine 10/02/2024 12:4 4 PM EDT Pinky Bueno MD POINT OF CARE TEST ENTER /EDIT ORDERABLES Final Result * POCT fern test, vaginal fluid manually resulted (09/13/2024 9:42 AM EDT) JENNY Prep Negative Comment:pH 5, otherwise nega tive. No whiff, clue, trich, yeast or wbc Vaginal Fluid Vaginal structure / Unknown 09/13/2024 9:42 AM EDT Linda Gamez CNM POINT OF CARE TEST ENTER/ EDIT ORDERABLES Final Result * Trichomonas RNA (Urine/Vaginal) (09/13/2024 9:32 AM EDT) Trichomas vaginalis RNA, QL, TMA NOT DETECTED NOT DETECTED [facility] Comment:For additional infor mation, please refer tohttp://education.DEONTICS/faq/Trichomonastma(This link is being provided for informational/educational purposes only.)THIS TEST WAS PERFORMED AT:[facility] [place] [id number] ROJO MD Swab 09/13/2024 9:32 AM EDT 09/13/2024 1:33 PM EDT Linda Gamez CNM LAB BODY FLUIDS AND STOOL S ORDERABLES Final Result Performing Organization Address City/[facility]/ZIP Co de Phone Number [facility] [address] [place] [phone] * Hepatitis C Antibody with Reflex to HCV, RNA, Quantitative, Real-Time PCR (03/27/2023 10:37 AM EST) Hepatitis C Antibody Nonreactive Nonreactive [facility] Comment:Antibodies to HCV no t detected; does not exclude early acuteHCV infection. Blood Venous blood specimen / Unknown 03/27/2023 10:37 AM EST 03/27/2023 11:48 AM EST Marilia Castillo MD LAB BLOOD ORDERABLES Final Resul t Performing Organization Address City/[facility]/ZIP Co de Phone Number [facility] [address] [place] [phone] * HIV-1/2 Antigen and Antibodies, Fourth Generation, with Reflexes (03/27/2023 10:37 AM EST) HIV AB/AG Nonreactive Nonreactive [facility] Comment:HIV-1 p24 Ag and/or HIV-1/HIV-2 Ab not detected.A test result that is nonreactive does not exclude thepossibility of exposure to or infection with HIV-1 and/orHIV-2. Nonreactive results in this assay for individualswith prior exposure to HIV-1 and/or HIV-2 may be due toantigen and antibody levels that are below the limit ofdetection of this assay.The Anevia HIV Ag/Ab Combo assay result andsupplemental assay results should be interpreted inconjunction with the patient's clinical presentation,history and other laboratory results. If the results areinconsistent with clinical evidence, additional testing issuggested to confirm the result. Blood Venous blood specimen / Unknown 03/27/2023 10:37 AM EST 03/27/2023 11:48 AM EST us Marilia Castillo MD LAB BLOOD ORDERABLES Final Resul t [facility] [address] [place] [address] [phone] from Last 3 Months or Most Recently Relevant to Health Maintenance Insurance [facility] , [address] [place] [address] [facility] Care Teams Business Integration Analyst Relationship Specialty Start Date End Date Marilia Castillo MD [address] [place] [address] PCP - General Family Medicine 03/27/23
--- OUTSIDE RECORDS SUMMARY | 2024-11-04 11:50 | XMS_ITS | Encounter Summary ---
Author Organization [employer] Address [address] [facility] [address] [place] [address] Care Team Providers Care Commuter Pilot Name Role Phone Marilia Castillo MD Primary Care Provider [phone] Reason for Visit * Reason Onset Date Comments Error 07/07/2023 Encounter Details Date Type Department Care Team ([facility] st Contact Info) Description 07/07/2023 Telephone [facility] [address] [place] [address] Marilia Castillo MD [address] [place] [address] Error Social History Tobacco Use Types Packs/Day [...] documented as of this encounter Care Teams Commuter Pilot Relationship Specialty Start Date End Date Marilia Castillo MD [address] [place] [address] PCP - General Family Medicine 03/27/23 documented as of this encounter
--- OUTSIDE RECORDS SUMMARY | 2024-11-04 11:50 | XMS_ITS | Encounter Summary ---
Author Organization [employer] Address [address] [place] [address] Care Team Providers Care Nursery Technician Name Role Phone Marilia Castillo MD Primary Care Provider [phone] Encounter Details Date Type Department Care Team ([facility] st Contact Info) Description 07/07/2023 Telephone [facility] [address] [place], [place] [phone] Marilia Castillo MD [address], [place] [phone] Social History Tobacco Use Types Packs/Day Years [...] documented as of this encounter Care Teams Nursery Technician Relationship Specialty Start Date End Date Marilia Castillo MD [address] [place] [address] PCP - General Family Medicine 03/27/23 documented as of this encounter
--- OUTSIDE RECORDS SUMMARY | 2024-11-04 11:50 | XMS_ITS | Clinical Summary ---
Author Organization [facility] Address [address] [place] [phone] Phone Care Team Providers Care Plant Accountant Name Role Phone Unavailable Primary Care Provider [...] Other No family histo ry of *Sudden /[place] under 55, No family history of ADD/ADHD, [...] 78 12/04/2016 3:39 PM EDT Temperature 38.1 C (100.6 F) 04/21/2016 12:00 AM EST Respiratory Rate - [...] 2020 COVID-19 Vaccine ( season) 2023 Influenza Vaccines (#1) 2024 12/22/19 16, 11/30/2013, 02/24/2009, Additional history exists DTaP,Tdap,and Td Vaccines (7 - Td or [...] HPV Vaccines Completed 04/25/2016, 12/08, 10/17/2015 Insurance [facility] NON PCC Member Subscriber Plan / Payer (Ef fective 2016-Present) Name:Vi Putnam Relation to Subscriber:Self Name:Vi Putnam Payer ID:Not on file Group ID:Not on file Type:Medicaid Address: [address] [employer]
--- OUTSIDE RECORDS SUMMARY | 2024-11-04 11:50 | XMS_ITS | Encounter Summary ---
Author Organization [facility] Address [address] [place] [phone] Phone Care Team Providers Care Logistician Name Role Phone Tiffanie Caputo BOAT HOIST OPERATOR Primary Care Provider Jane horton Encounter Details Date Type Department Care Team (Late st Contact Info) Description 10/24/2016 Conversion Encounter [facility] - [address] [address] Social History Tobacco Use Types Packs/Day Years [...] on filedocumented in this encounter Care Teams Logistician Relationship Specialty Start Date End Date Tiffanie Caputo NP PCP - General 10/18/16 06/19/22 documented as of this encounter
== END 2024-11-04 10:32 | disposition home or self-care (01) ==
LOC: HO.US 10:31
PROVIDERS: PCP Family Medicine; Visit Provider Internal Medicine
DX: R10.9 Unspecified abdominal pain (principal)
CPT/HCPCS: 76705

== ENCOUNTER → 2024-11-04 10:33 | Outpatient (BNV) | payer OTHER, MEDICAID, SELFPAY | PROVIDERS: PCP Family Medicine; Visit Provider Radiology Diagnostic Radiology | DX: R10.12 Left upper quadrant pain (principal) | CPT/HCPCS: 76705 ==

== ENCOUNTER 2024-11-25 10:23 | Outpatient (REF) | payer OTHER, MEDICAID, SELFPAY ==
--- OUTSIDE RECORDS SUMMARY | 2024-11-23 15:20 | XMS_ITS | Encounter Summary ---
Author Organization [employer] Address [address] [facility] [address] [place] [address] Care Team Providers Care Development Director Name Role Phone Marilia Castillo MD Primary Care Provider [phone] Reason for Visit * Reason Comments Headache Pressure Encounter Details Date Type Department Care Team (Latest Contact Info) Description 11/23/2024 3:20 PM EDT Office Visit [facility] [address] [place] [address] Nonintractable headache, unspecified chronicity pattern, unspecified headache type (Primary Dx); Fatigue, unspecified type; Irregular menstruation; Arm numbness; Anxiety Social History Tobacco Use Types Packs/Day Years [...] PM EDT documented as of this encounter Last Filed Vital Signs Vital Sign Reading Time Taken Comments Blood Pressure 100/68 11/23/2024 3:28 PM EDT Pulse 70 11/23/2024 3:28 PM EDT Temperature 36.7 C (98.1 F) 11/23/2024 3:28 PM EDT Respiratory Rate 16 11/23/2024 3:28 PM EDT Oxygen Saturation 100% 11/23/2024 3:28 PM EDT Inhaled Oxygen Concentration - - Weight 59.4 kg (131 lb) 11/23/2024 3:28 PM EDT Height - - Body Mass Index 22.49 10/02/2024 12:27 PM EDT documented in this encounter Plan of Treatment Upcoming Encounters Date Type Department Care Team (Late st Contact Info) Description 12/20/2024 11:30 AM EDT Office Visit [facility] [address] [place] [address] Marilia Castillo MD [address] [place] [address] 01/06/2025 10:15 AM EDT Office Visit [facility] [address] [place] [address] Marilia Castillo MD [address] [place] [address] Scheduled Orders Name Type Priority Associated Diagnoses Orde r Schedule TSH W/Reflex to FT4 Lab Routine Fatigue, unspecified type Expected: 11/23/2024 (Approximate), Expires: 11/23/2025 Mononucleosis Test, Qualitative Lab Routine Fatigue, unspecified type Expected: 11/23/2024 (Approximate), Expires: 11/23/2025 Comprehensive Metabolic Panel Lab Routine Fatigue, unspecified type Expected: 11/23/2024 (Approximate), Expires: 11/23/2025 Creatine Kinase, Total Lab Routine Fatigue, unspecified type Expected: 11/23/2024, Expires: 11/23/2025 Testosterone, Free, Bioavailable And Total MS Lab Routine Irregular menstruation Expected: 11/23/2024 (Approximate), Expires: 11/23/2025 Sed Rate by Modified [place] Lab Routine Fatigue, unspecified type Expected: 11/23/2024, Expires: 11/23/2025 C-reactive Protein Lab Routine Fatigue, unspecified type Expected: 11/23/2024 (Approximate), Expires: 11/23/2025 documented as of this encounter Procedures Procedure Name Priority Date/Time Associated Diagnosis Comments CBC WITH AUTO DIFFERENTIAL Routine 11/25/2024 10:43 AM EDT Fatigue, unspecified type documented in this encounter Results * (ABNORMAL) CBC auto differential (11/25/2024 10:43 AM EDT) White Blood Count 7.1 4.8 - 10.8 X10*3/uL [facility] Red Blood Count 4.16(L) 4.20 - 5.50 X10*6/uL [facility] Hemoglobin 12.5 12.0 - 16.0 g/dl [facility] Hematocrit 37.3 37.0 - 47.0 % [facility] Mean Corpuscular Volume 89.7 80.0 - 98.0 fL [facility] Mean Corpuscular Hemoglobin 30.0 27.0 - 33.0 pg [facility] Mean Corpuscular HGB Conc 33.5 31.0 - 35.0 g/dl [facility] Red Cell Distribution Width 11.9 11.0 - 16.0 % [facility] Platelet Count 282 160 - 400 X10*3/uL [facility] Mean Platelet Volume 9.3(L) 9.4 - 12.3 fL [facility] Neutrophils Percent Auto 58.1 45 - 73 % [facility] Imm Gran Pct Auto 0.1 0.0 - 0.4 % [facility] Lymphocytes Percent Auto 30.6 20 - 40 % [facility] Monocytes Percent Auto 8.8 2 - 11 % [facility] Eosinophils Percent Auto 1.6 0 - 4 % [facility] Basophils Percent Auto 0.8 0 - 2 % [facility] NRBC Pct Auto 0.0 0.0 - 0.2 /100WBC [facility] Neutrophils Absolute Auto 4.1 2.0 - 8.3 x10*3/uL [facility] Imm Gran Abs Auto 0.01 0.00 - 0.03 X10*3/uL [facility] Lymphocytes Absolute Auto 2.2 1.2 - 4.9 X10*3/uL [facility] Monocytes Absolute Auto 0.6 0.1 - 1.2 X10*3/uL [facility] Eosinophils Absolute Auto 0.1 0.0 - 0.4 X10*3/uL [facility] Basophils Absolute Auto 0.1 0.0 - 0.2 X10*3/uL [facility] NRBC Abs Auto 0.000 0.0 - 0.012 X10*3/uL [facility] Blood Venous blood specimen / Unknown 11/25/2024 10:43 AM EDT 11/25/2024 11:49 AM EDT us Amarjit Echevarria MD LAB BLOOD ORDERABLES Final Resu lt [facility] [address] [place] [phone] [phone] documented in this encounter Visit Diagnoses Diagnosis Nonintractable headache, unspecified chronicity pattern, unspecified headache type- Primary Fatigue, unspecified type Irregular menstruation Irregular menstrual cycle Arm numbness Disturbance of skin sensation Anxiety Anxiety state, unspecified documented in this encounter Additional Health Concerns Assessment Noted Time PHQ-9 Depression Total Score: 0 09/14/19 25 9:20 AM EDT documented as of this encounter Care Teams Development Director Relationship Specialty Start Date End Date Marilia Castillo MD [address] [place] [address] PCP - General Family Medicine 03/27/23 documented as of this encounter
[2024-11-25 11:53] LABS: MANUAL DIFF FLAG NO
[2024-11-25 11:59] LABS: Hematocrit 37.3 % (37.0-47.0); Hemoglobin 12.5 g/dl (12.0-16.0); Imm Gran Abs Auto 0.01 X10*3/uL (0.00-0.03); Imm Gran Pct Auto 0.1 % (0.0-0.4); Lymphocytes Absolute Auto 2.2 X10*3/uL (1.2-4.9); Mean Corpuscular HGB Conc 33.5 g/dl (31.0-35.0); Mean Corpuscular Hemoglobin 30.0 pg (27.0-33.0); Mean Corpuscular Volume 89.7 fL (80.0-98.0); NRBC Abs Auto 0.000 X10*3/uL (0.0-0.012); NRBC Pct Auto 0.0 /100WBC (0.0-0.2); Platelet Count 282 X10*3/uL (160-400); Red Blood Count 4.16 X10*6/uL (4.20-5.50); White Blood Count 7.1 X10*3/uL (4.8-10.8)
--- OUTSIDE RECORDS SUMMARY | 2024-11-25 12:21 | XMS_ITS | Encounter Summary ---
Author Organization [facility] Address [address] [place] [address] Phone Care Team Providers Care Soda Dialyzer Name Role Phone Tiffanie Caputo HEALTH CARE ADMINISTRATOR Primary Care Provider Jane horton Encounter Details Date Type Department Care Team (Late st Contact Info) Description 10/24/2016 Conversion Encounter [facility] - [address] [address] Social History Tobacco Use Types Packs/Day Years [...] on filedocumented in this encounter Care Teams Soda Dialyzer Relationship Specialty Start Date End Date Tiffanie Caputo NP PCP - General 10/18/16 06/19/22 documented as of this encounter
--- OUTSIDE RECORDS SUMMARY | 2024-11-25 12:21 | XMS_ITS | Encounter Summary ---
Author Organization [employer] Address [address] [facility] 7t [place] [address] Care Team Providers Care Sander Setter Name Role Phone Marilia Castillo MD Primary Care Provider Reason for Visit * Reason Onset Date Comments Med Refill 07/01/2023 Encounter Details Date Type Department Care Team (Late st Contact Info) Description 07/01/2023 Refill [facility] [address] [place] [address] Maggie Gonzalez MD [address] [place] [address] Social History Tobacco Use Types Packs/Day Years [...] Description 12/20/2024 11:30 AM EDT Office Visit [facility] [address] [place] [address] Marilia Castillo MD [address] [place] [address] 01/06/2025 10:15 AM EDT Office Visit [address] [address] Marilia Castillo MD [address] [place] [address] documented as of this encounter Visit Diagnoses Not on filedocumented in this encounter Additional Health Concerns Assessment Noted Time PHQ-9 Depression Total Score: 0 03/27/19 24 9:28 AM EST documented as of this encounter Care Teams Sander Setter Relationship Specialty Start Date End Date Marilia Castillo MD [address] [place] [address] PCP - General Family Medicine 03/27/23 documented as of this encounter
--- OUTSIDE RECORDS SUMMARY | 2024-11-25 12:21 | XMS_ITS | Encounter Summary ---
Author Organization [employer] Address [address] [facility] [address] [place] [address] Care Team Providers Care Remote Sensing Technologist Name Role Phone Marilia Castillo MD Primary Care Provider [phone] Reason for Visit * Reason Onset Date Comments Error 07/07/2023 Encounter Details Date Type Department Care Team ([facility] st Contact Info) Description 07/07/2023 Telephone [facility] [address] [place] [address] Marilia Castillo MD [address] [place] [address] Error Social History Tobacco Use Types Packs/Day [...] Description 12/20/2024 11:30 AM EDT Office Visit [facility] [address] [place] [address] Marilia Castillo MD [address] [place] [address] 01/06/2025 10:15 AM EDT Office Visit [facility] [address] [place] [address] Marilia Castillo MD [address] [place] [address] documented as of this encounter Visit Diagnoses Not on filedocumented in this encounter Additional Health Concerns Assessment Noted Time PHQ-9 Depression Total Score: 0 03/27/19 24 9:28 AM EST documented as of this encounter Care Teams Remote Sensing Technologist Relationship Specialty Start Date End Date Marilia Castillo MD [address] [place] [address] PCP - General Family Medicine 03/27/23 documented as of this encounter
--- OUTSIDE RECORDS SUMMARY | 2024-11-25 12:21 | XMS_ITS | Clinical Summary ---
Author Organization [facility] Address [address] [place] [address] Care Team Providers Care Margin Analyst Name Role Phone Unavailable Primary Care Provider [...] of 3 - 19+ 3-dose series) 10/12/2023 Depression Screening 03/10/2024 COVID-19 Vaccine (1 - 2023-2 5 season) 2024 Influenza Vaccine (#1) 2024 HIB Vaccines Aged [...]
--- OUTSIDE RECORDS SUMMARY | 2024-11-25 12:21 | XMS_ITS | Encounter Summary ---
Author Organization [employer] Address [address] [facility] [address] [place] [address] Care Team Providers Care Co Founder And Chief Strategy Officer Name Role Phone Marilia Castillo MD Primary Care Provider [phone] Encounter Details Date Type Department Care Team ([facility] st Contact Info) Description 07/07/2023 Telephone [facility] [address] [place], [place] [phone] Marilia Castillo MD [address] [place], [place] [phone] Social History Tobacco Use Types Packs/Day Years [...] Description 12/20/2024 11:30 AM EDT Office Visit [facility] [address] [place] [address] Marilia Castillo MD [address] [place] [address] 01/06/2025 10:15 AM EDT Office Visit [facility] [address] [place] [address] Marilia Castillo MD [address] [place] [address] documented as of this encounter Visit Diagnoses Not on filedocumented in this encounter Additional Health Concerns Assessment Noted Time PHQ-9 Depression Total Score: 0 03/27/19 24 9:28 AM EST documented as of this encounter Care Teams Co Founder And Chief Strategy Officer Relationship Specialty Start Date End Date Marilia Castillo MD [address] [place] [address] PCP - General Family Medicine 03/27/23 documented as of this encounter
--- OUTSIDE RECORDS SUMMARY | 2024-11-25 12:21 | XMS_ITS | Encounter Summary ---
Author Organization [facility] Address [address] [place] [address] Phone Care Team Providers Care Optical Brightener Maker Helper Name Role Phone Tiffanie Caputo NP Primary Care Provider Jane horton Encounter Details Date Type Department Care Team (Late st Contact Info) Description 06/24/2015 Documentation [facility] Family Medicine [address] [place] [address] Family Medicine, [place] [address] Social History Tobacco Use Types Packs/Day Years [...] on filedocumented in this encounter Care Teams Optical Brightener Maker Helper Relationship Specialty Start Date End Date Tiffanie Caputo NP PCP - General 10/18/16 06/19/22 documented as of this encounter
--- OUTSIDE RECORDS SUMMARY | 2024-11-25 12:21 | XMS_ITS | Encounter Summary ---
Author Organization [employer] Address [address] [facility] [address] [place] [address] Care Team Providers Care Bull Float Finisher Name Role Phone Marilia Castillo MD Primary Care Provider [phone] Encounter Details Date Type Department Care Team ([facility] st Contact Info) Description 03/29/2023 Orders Only [facility] [address] [place], [place] [phone] Marilia Castillo MD [address] [place], [place] [phone] Irregular menstruation (Primary Dx) Social History Tobacco [...] Description 12/20/2024 11:30 AM EDT Office Visit [facility] [address] [place] [address] Marilia Castillo MD [address] [place] [address] 01/06/2025 10:15 AM EDT Office Visit [facility] [address] [place] [address] Marilia Castillo MD [address] [place] [address] documented as of this encounter Procedures Procedure [...] EST) Lipase 30 8 - 78 U/L [facility] 05/16/2023 5:03 AM EST 05/16/2023 5:07 AM EST Generic External Data Provider LAB BLOOD ORDERAB LES Final Result Performing Organization Address [facility] Co de Phone Number [facility] [address] [place] [phone] * Hepatic Function Panel (05/16/2023 5:03 AM EST) Bilirubin, Total 0.4 0.0 - 1.0 mg/dL [facility] Bilirubin, Direct 0.1 0.0 - 0.5 mg/dL [facility] Aspartate Amino Transferase 20 5 - 31 U/L [facility] Alanine Aminotransferase 18 0 - 31 U/L [facility] Total Protein 7.1 6.5 - 8.0 g/dL [facility] Albumin Level 4.0 3.5 - 5.0 g/dL [facility] Alkaline Phosphatase 87 39 - 117 U/L [facility] 05/16/2023 5:03 AM EST 05/16/2023 5:07 AM EST Generic External Data Provider LAB BLOOD ORDERAB LES Final Result Performing Organization Address [facility] de Phone Number [facility] [address] [place] [phone] * (ABNORMAL) Basic Metabolic Panel (05/16/2023 5:03 AM EST) Sodium 141 135 - 145 mmol/L [facility] Potassium 3.9 3.3 - 5.1 mmol/L [facility] Chloride 105 96 - 108 mmol/L [facility] Carbon Dioxide 29 22 - 29 mmol/L [facility] Anion Gap 11(L) 12 - 20 [facility] Urea Nitrogen (BUN) 14 9 - 16 mg/dL [facility] Creatinine, Serum 0.67 0.5 - 1.4 mg/dL [facility] Creatinine Clr Calc Pharmacy TNP [facility] Comment:Cannot be calculated ; patient is less than 19 years old. Estimated Glomerular Filt Rate >60 [facility] Comment:NOTE: For -Am erican individuals, multiply the result by 1.210.Chronic Kidney Disease: Estimated GFR < 60 mL/min/1.97r4[place]yo Kidney Disease: Estimated GFR < 15 mL/min/1.73m2 Glucose 88 60 - 115 mg/dL [facility] Calcium 9.3 8.4 - 10.2 mg/dL [facility] 05/16/2023 5:03 AM EST 05/16/2023 5:07 AM EST us Generic External Data Provider LAB BLOOD ORDERAB LES Final Result Performing Organization Address [facility] Co de Phone Number [facility] [address] [place] [phone] * HCG, Qualitative, Urine (05/16/2023 5:03 AM EST) Urine NEGATIVE NEGATIVE [facility] Comment:This test was develo ped to detect early . Falsenegative results may occur after the 5th - 7th week ofpregnancy when using this test method. If clinicallyindicated, consider a serum hCG. 05/16/2023 5:03 AM EST 05/16/2023 5:07 AM EST us Generic External Data Provider LAB URINE ORDERAB LES Final Result Performing Organization Address [facility]/ZIP Co de Phone Number [facility] [address] [place] [phone] * Urinalysis w/reflex microscopic (05/16/2023 5:03 AM EST) Color Urine Yellow [facility] Appearance Urine Turbid [facility] PH 8.5 5.0 - 9.0 [facility] Glucose Urine UA Negative Negative mg/dL [facility] Urine Blood Negative Negative [facility] [place] - Urine 1.020 1.005 - 1.025 [facility] Urine Protein Negative Neg-Trace mg/dL [facility] Urine Ketones Negative Negative mg/dL [facility] Nitrite Urine Negative Negative [facility] Leukocyte Esterase Urine Negative Negative [facility] 05/16/2023 5:03 AM EST 05/16/2023 5:07 AM EST Narrative [facility] - 05/16/2023 5:12 AM EST [id number], Clean Catch us Generic External Data Provider LAB URINE ORDERAB LES Final Result [facility] [address] [place] [phone] * (ABNORMAL) CBC auto differential (05/16/2023 5:03 AM EST) White Blood Count 10.9(H) 4.8 - 10.8 X10*3/uL [facility] Red Blood Count 4.46 4.20 - 5.50 X10*6/uL [facility] Hemoglobin 13.1 12.0 - 16.0 g/dl [facility] Hematocrit 39.0 37.0 - 47.0 % [facility] Mean Corpuscular Volume 87.4 80.0 - 98.0 fL [facility] Mean Corpuscular Hemoglobin 29.4 27.0 - 33.0 pg [facility] Mean Corpuscular HGB Conc 33.6 31.0 - 35.0 g/dl [facility] Red Cell Distribution Width 12.1 11.0 - 16.0 % [facility] Platelet Count 277 160 - 400 X10*3/uL [facility] Mean Platelet Volume 8.9(L) 9.4 - 12.3 fL [facility] Neutrophils Percent Auto 60.6 45 - 73 % [facility] Imm Gran Pct Auto 0.2 0.0 - 0.4 % [facility] Lymphocytes Percent Auto 29.1 20 - 40 % [facility] Monocytes Percent Auto 7.9 2 - 11 % [facility] Eosinophils Percent Auto 1.8 0 - 4 % [facility] Basophils Percent Auto 0.4 0 - 2 % [facility] NRBC Pct Auto 0.0 0.0 - 0.2 /100WBC [facility] Neutrophils Absolute Auto 6.6 2.0 - 8.3 x10*3/uL [facility] Imm Gran Abs Auto 0.02 0.00 - 0.03 X10*3/uL [facility] Lymphocytes Absolute Auto 3.2 1.2 - 4.9 X10*3/uL [facility] Monocytes Absolute Auto 0.9 0.1 - 1.2 X10*3/uL [facility] Eosinophils Absolute Auto 0.2 0.0 - 0.4 X10*3/uL [facility] Basophils Absolute Auto 0.0 0.0 - 0.2 X10*3/uL [facility] NRBC Abs Auto 0.000 0.0 - 0.012 X10*3/uL [facility] 05/16/2023 5:03 AM EST 05/16/2023 5:07 AM EST us Generic External Data Provider LAB BLOOD ORDERAB LES Final Result [facility] [address] [place] [phone] * US Pelvis Transvaginal (04/24/2023 12:01 PM EST) Anatomical Region Laterality Modality Pelvis Ultrasound 04/24/2023 12:0 1 PM EST Narrative 04/25/2023 1:02 PM EST [address] [address] Ultrasound Report Signed Patient: Vi Garner MR# : [id number] : 2005 Acct:[id number] Age/Sex: 17 / F ADM Date: 04/24/23 Loc: HO.US Attending Dr: Marilia Castillo MD Ordering Physician: Marilia Castillo MD Date of Service: 04/24/23 Procedure(s): US pelvic and transvaginal Accession Number(s): [id number] cc: Marilia Castillo MD EXAMINATION: US PELVIS [...] in OV> 04/25/23 1258 DD/ 1201 TD/TT: Learning Officer: POONAM Procedure Note Donotuseinterpreter, Image - 04/25/[address] [address] Ultrasound Report Signed Patient: Vi Garner [facility]# : [id number] : 2005Acct:[id number] Age/Sex: 17 / FADM Date: 04/24/23 Loc: HO.US Attending Dr: Marilia Castillo MD Ordering Physician: Marilia Castillo MD Date of Service: 04/24/23 Procedure(s): US pelvic and transvaginal Accession Number(s): [id number] cc: Marilia Castillo MD EXAMINATION: US PELVIS [...] in OV> 04/25/23 1258 DD/ 1201 TD/TT: Learning Officer: POONAM us Marilia Castillo MD IMG US PROCEDURES Edited Result - Final documented in this encounter Visit Diagnoses Diagnosis Irregular menstruation- Primary Irregular menstrual cycle documented in this encounter Additional Health Concerns Assessment Noted Time PHQ-9 Depression Total Score: 0 03/27/19 9:28 AM EST documented as of this encounter Care Teams Bull Float Finisher Relationship Specialty Start Date End Date Marilia Castillo MD [address] [place] [address] PCP - General Family Medicine 03/27/23 documented as of this encounter
--- OUTSIDE RECORDS SUMMARY | 2024-11-25 12:22 | XMS_ITS | Encounter Summary ---
Author Organization [employer] Address [address] [facility] [address] [place] [address] Care Team Providers Care Haul Cane Brakeman Name Role Phone Marilia Castillo MD Primary Care Provider [phone] Encounter Details Date Type Department Care Team (Latest Contact Info) Description 11/23/2024 Travel Social History Tobacco Use Types Packs/Day Years [...] t he electric, gas, oil or water [employer] threatened to shut off services in your [...] Description 12/20/2024 11:30 AM EDT Office Visit [facility] [address] [place] [address] Marilia Castillo MD [address] [place] [address] 01/06/2025 10:15 AM EDT Office Visit [facility] [address] [place] [address] Marilia Castillo MD [address] [place] [address] documented as of this encounter Visit Diagnoses Not on filedocumented in this encounter Additional Health Concerns Assessment Noted Time PHQ-9 Depression Total Score: 0 09/14/19 9:20 AM EDT documented as of this encounter Care Teams Haul Cane Brakeman Relationship Specialty Start Date End Date Marilia Castillo MD [address] [place] [address] PCP - General Family Medicine 03/27/23 documented as of this encounter
--- OUTSIDE RECORDS SUMMARY | 2024-11-25 12:22 | XMS_ITS | Encounter Summary ---
Author Organization [employer] Address [address] [facility] [address] [place] [address] Care Team Providers Care Harbormaster Name Role Phone Marilia Castillo MD Primary Care Provider [phone] Encounter Details Date Type Department Care Team ([facility] st Contact Info) Description 11/10/2024 Results Follow-Up [facility] [address] [place] [address] Pinky Bueno MD [address] [place] [address] US Abdomen Limited Social History Tobacco Use Types Packs/Day Years [...] as of this encounter Miscellaneous Notes * Result Encounter Note - Pinky Bueno MD - 11/10/2024 1:49 PM EDT Please send Normal Imaging Letter documented in this encounter Plan of Treatment Upcoming Encounters Date Type Department Care Team (Late st Contact Info) Description 12/20/2024 11:30 AM EDT Office Visit [facility] [address] [place] [address] Marilia Castillo MD [address] [place] [address] 01/06/2025 10:15 AM EDT Office Visit [facility] [address] [place] [address] Marilia Castillo MD [address] [place] [address] documented as of this encounter Visit Diagnoses Not on filedocumented in this encounter Additional Health Concerns Assessment Noted Time PHQ-9 Depression Total Score: 0 09/14/19 25 9:20 AM EDT documented as of this encounter Care Teams Harbormaster Relationship Specialty Start Date End Date Marilia Castillo MD [address] [place] [address] PCP - General Family Medicine 03/27/23 documented as of this encounter
--- OUTSIDE RECORDS SUMMARY | 2024-11-25 12:22 | XMS_ITS | Clinical Summary ---
Author Organization [facility] Address [address] [place] [phone] Phone Care Team Providers Care Manager Of Operations Name Role Phone Unavailable Primary Care Provider [...] Other No family histo ry of *Sudden /VA under 55, No family history of ADD/ADHD, [...] 2 - Standard) 2020 Influenza Vaccines (#1) 2024 12/22/19 16, 11/30/2013, 02/24/2009, Additional history exists COVID-19 Vaccine ( - season) 2024 DTaP,Tdap,and Td Vaccines (7 - Td or [...] HPV Vaccines Completed 04/25/2016, 12/08, 10/17/2015 Insurance [facility] NON PCC Member Subscriber Plan / Payer (Ef fective 2016-Present) Name:Vi Putnam Relation to Subscriber:Self Name:Vi Putnam Payer ID:Not on file Group ID:Not on file Type:Medicaid Address: [address] [employer]
--- OUTSIDE RECORDS SUMMARY | 2024-11-25 12:22 | XMS_ITS | Clinical Summary ---
Author Organization [employer] Address [address] [facility] 7t [place] [address] Care Team Providers Care Wire Repairer Name Role Phone Marilia Castillo MD Primary Care Provider [phone] Allergies Active Allergy Reactions Criticality Noted Date Comments Other 12/04/2016 Cat dander, dog dander, feathers, mold, ragweed, and rabbits Medications triamcinolone (Kenalog) 0.1 % creamIndication s:Insect bite of ankle, unspecified laterality, initial encounter Apply to affected area BID till improved. 30 g 07/24/19 24 Active valACYclovir (Valtrex) 1 g tablet TAKE 2 TABLETS BY MOUTH TWICE A DAY FOR 1 DAY AT EARLIEST SIGNS AND SYMPTOMS OF ONSET 12 tablet 1 09/16/19 25 Active ibuprofen 400 MG tabletIndicatio ns:Nonintractab le headache, unspecified chronicity pattern, unspecified headache type 1 tab TID for a week, then q 6 hours prn pain or fever. 30 tablet 1 11/24/19 25 Active FLUoxetine (PROzac) 10 MG capsule 05/29/19 24 025 Discontinued QUEtiapine (SEROquel) 25 MG tablet 06/25/19 25 025 Discontinued Active Problems Problem Noted Date Diagnosed Date [...] Encounters Date Type Department Care Team Description 11/23/2024 3:20 PM EDT Office Visit [facility] [address] [address] Nonintractable headache, unspecified chronicity pattern, unspecified headache type (Primary Dx); Fatigue, unspecified type; Irregular menstruation; Arm numbness; Anxiety 11/23/2024 Travel 11/22/[address] [address] Marilia Castillo MD Nurse Triage 11/10/[address] [address] Marilia Castillo MD Stable Lab Letter 11/10/2024 Results Follow-Up [address] [address] Pinky Bueno MD US Abdomen Limited 10/04/[address] [phone] Linda Gamez CNM 10/02/2024 12:20 PM EDT Office Visit [facility] [address] [address] Pinky Bueno MD Acute vaginitis (Primary Dx); Abdominal pain, unspecified abdominal location; UTI symptoms 10/02/2024 Orders Only [address] [phone] Pinky Bueon MD 10/02/2024 Travel 10/01/[address] [address] Marilia Castillo MD Nurse Triage 09/22/2024 Orders Only [address] [address] Linda Gamez CNM Vaginal discharge (Primary Dx) 09/14/2024 Results Follow-Up [address] [place] [address] Linda Gamez CNM Chlamydia/N. Gonorrhoeae RNA, TMA, Vagina 09/13/2024 9:15 AM EDT Office Visit [address] [address] Linda Gamez CNM Vaginal discharge (Primary Dx); Elevated prolactin level; Pelvic pain 09/13/[address] [address] Marilia Castillo MD 09/13/2024 Travel 09/09/[address] [address] Marilia Castillo MD chartprep 09/07/[address] [address] Marilia Castillo MD Nurse Triage from Last [...] unspecified 10/17/2015 Meningococcal MCV4P ACYW-135 10/17/2015 Novel [id number]-[id number], all formulations 02/24/2009,01/19/2009 Pneumococcal Conjugate PCV 13 [...] (131 lb) 11/23/2024 3:28 PM EDT Height 162.6 cm (5' 4 ) 10/02/2024 12:27 PM EDT Body Mass Index 22.49 10/02/2024 12:27 PM EDT Plan of Treatment Upcoming Encounters Date Type Department Care Team (Late st Contact Info) Description 12/20/2024 11:30 AM EDT Office Visit [facility] [address] [place] [address] Marilia Castillo [facility] [place] [address] 01/06/2025 10:15 AM EDT Office Visit [facility] [place], [place] [phone] Marilia Castillo MD [address] [place] [address] Health Maintenance Due Date Last Done Comments Meningococcal B Vaccine (1 of 2 - Standard) 2020 SDOH Screening 03/19/2024 03/19/2023 COVID-19 Vaccine (2023- season) 2024 Influenza Vaccine (#1) 2024 9, 12/16/2018, 12/22/2015, Additional history exists Alcohol/Substance Use Screening 09/13/2025 09/13/2024 Depression Screening 09/13/2025 09/13/2024, 09/14/19 25 Disability Screening 09/13/2025 09/13/2024 Family Planning (PISQ) 09/13/2025 09/13/2024 Chlamydia and Gonorrhea Screening 10/02/2025 10/02/2024, 09/13/2024, 07/23/2024, Additional history exists Tobacco Screening 11/23/2025 11/23/2024 DTaP/Tdap/Td Vaccines (8 - Td or Tdap) [...] 11/25/2024 10:43 AM EDT Fatigue, unspecified type US ABDOMEN LIMITED Routine 11/04/2024 10 :40 [...] Recently Relevant to Health Maintenance Results * (ABNORMAL) CBC auto differential (11/25/2024 10:43 AM EDT) White Blood Count 7.1 4.8 - 10.8 X10*3/uL [facility] Red Blood Count 4.16(L) 4.20 - 5.50 X10*6/uL [facility] Hemoglobin 12.5 12.0 - 16.0 g/dl [facility] Hematocrit 37.3 37.0 - 47.0 % [facility] Mean Corpuscular Volume 89.7 80.0 - 98.0 fL [facility] Mean Corpuscular Hemoglobin 30.0 27.0 - 33.0 pg [facility] Mean Corpuscular HGB Conc 33.5 31.0 - 35.0 g/dl [facility] Red Cell Distribution Width 11.9 11.0 - 16.0 % [facility] Platelet Count 282 160 - 400 X10*3/uL [facility] Mean Platelet Volume 9.3(L) 9.4 - 12.3 fL [facility] Neutrophils Percent Auto 58.1 45 - 73 % [facility] Imm Gran Pct Auto 0.1 0.0 - 0.4 % [facility] Lymphocytes Percent Auto 30.6 20 - 40 % [facility] Monocytes Percent Auto 8.8 2 - 11 % [facility] Eosinophils Percent Auto 1.6 0 - 4 % [facility] Basophils Percent Auto 0.8 0 - 2 % [facility] NRBC Pct Auto 0.0 0.0 - 0.2 /100WBC [facility] Neutrophils Absolute Auto 4.1 2.0 - 8.3 x10*3/uL [facility] Imm Gran Abs Auto 0.01 0.00 - 0.03 X10*3/uL [facility] Lymphocytes Absolute Auto 2.2 1.2 - 4.9 X10*3/uL [facility] Monocytes Absolute Auto 0.6 0.1 - 1.2 X10*3/uL [facility] Eosinophils Absolute Auto 0.1 0.0 - 0.4 X10*3/uL [facility] Basophils Absolute Auto 0.1 0.0 - 0.2 X10*3/uL [facility] NRBC Abs Auto 0.000 0.0 - 0.012 X10*3/uL [facility] Blood Venous blood specimen / Unknown 11/25/2024 10:43 AM EDT 11/25/2024 11:49 AM EDT Amarjit Echevarria MD LAB BLOOD ORDERABLES Final Resu lt Performing Organization Address City/State/[facility] Co de Phone Number [facility] [address] [place] [phone] * US Abdomen Limited (11/04/2024 10:40 AM EDT) Anatomical Region Laterality Modality Abdomen Ultrasound 11/04/2024 10:4 0 AM EDT Narrative 11/04/2024 10:57 AM EDT [address] [address] Ultrasound Report Signed Patient: Vi Garner MR# : [id number] : 2005 Acct:[id number] Age/Sex: 19 / F ADM Date: 11/04/24 Loc: HO.US Attending Dr: Pinky Bueno MD Ordering Physician: Pinky Bueno MD Date of Service: 11/04/24 Procedure(s): US abdomen limited Accession Number(s): [id number] cc: Pinky Bueon MD; Marilia Castillo MD EXAMINATION: US ABDOMEN [...] Signed By: <Electronically signed by Nitin Sylvester MD in OV> 11/04/24 1054 DD/ 1040 TD/TT: 11/04/24 1044 Director Maternal Child: Procedure Note Donotuseinterpreter, Image - 11/04/2024 [place] [address] Ultrasound Report Signed Patient: Vi Garner [facility]# : [id number] : 2005Acct:[id number] Age/Sex: 19 / FADM Date: 11/04/24 Loc: . Attending Dr: Pinky Bueno MD Ordering Physician: Pinky Bueno MD Date of Service: 11/04/24 Procedure(s): US abdomen limited Accession Number(s): [id number] cc: Pinky Bueno MD; Marilia Castillo MD [...] 11/04/24 1054 DD/ 1040 TD/TT: 11/04/24 1044 Director Maternal Child: us Pinky Bueno MD IMG US PROCEDURES Final Result * Prolactin (10/06/2024 3:10 PM EDT) Pathologist [facility] [place] Prolactin 14.1 ng/mL [facility] Comment:Reference Range Fema les Non- 3.0-30.0 10.0-209.0 Postmenopausal 2.0-20.0THIS TEST WAS PERFORMED AT:[facility] [place] [id number] ROJO MD Blood Venous blood specimen / Unknown 10/06/2024 3:10 PM EDT 10/06/2024 3:57 PM EDT us Linda SULLIVAN LAB BLOOD ORDERABLES Danni l Result [facility] [address] [place] [phone] * Bacterial Vaginosis (10/02/2024 12:56 PM EDT) TRICHOMONAS VAGINALIS DETECTION BY PCR NOT DETECTED Not Detect [facility] BACTERIAL VAGINOSIS DETECTION BY PCR NEGATIVE Negative [facility] Comment:The BV organism targ ets [...] DETECTION BY PCR NOT DETECTED Not Detect [facility] Leila glab krusei PCR NOT DETECTED Not Detect [facility] 10/02/2024 12:5 6 PM EDT 10/02/2024 2:06 PM EDT us Pinky Bueno MD LAB MICROBIOLOGY - GENER AL ORDERABLES Final Result [facility] [address] [place] [phone] * Chlamydia/N. Gonorrhoeae RNA, TMA, Urogenitial (10/02/2024 12:56 PM EDT) Only the most recent of2 resultswithin the time period is included. CT PCR NOT DETECTED Not Detect. [facility] Comment:A not detected test result [...] psychologicalconsequences. NG PCR NOT DETECTED Not Detect. [facility] Comment:A not detected test result [...] AL ORDERABLES Final Result Performing Organization Address City/[facility]/ZIP Co de Phone Number [facility] [address] [place] [phone] * Culture, Urine, Routine (10/02/2024 12:56 PM EDT) Urine Urine specimen obtained by clean catch procedure / Unknown 10/02/2024 12:56 PM EDT 10/02/2024 2:07 PM EDT Comment:UACC Narrative [facility] - 10/03/2024 9:02 AM EDT Urine Culture No growth. Specimen Source: Urine clean catch Pinky Bueno MD LAB MICROBIOLOGY - GENER AL ORDERABLES Final Result Performing Organization Address City/[facility] Co de Phone Number [facility] [address] [place] [phone] * POCT Urinalysis (10/02/2024 12:44 PM [...] Media Lot # [id number] Lot# Expiration Date ,026 Urine 10/02/2024 12:4 4 PM EDT Pinky Bueno MD POINT OF CARE TEST ENTER /EDIT ORDERABLES Final Result * POCT fern test, vaginal fluid manually resulted (09/13/2024 9:42 AM EDT) Pathologist [facility] [place] JENNY Prep Negative Comment:pH 5, otherwise nega tive. No whiff, clue, trich, yeast or wbc Vaginal Fluid Vaginal structure / Unknown 09/13/2024 9:42 AM EDT Linda Gamez CNM POINT OF CARE TEST ENTER/ EDIT ORDERABLES Final Result * Trichomonas RNA (Urine/Vaginal) (09/13/2024 9:32 AM EDT) Pathologist [facility] [place] Trichomas vaginalis RNA, QL, TMA NOT DETECTED NOT DETECTED [facility] Comment:For additional infor danilo, please refer [email or web address]/faq/Trichomonastma(This link is being provided for informational/educational purposes only.)THIS TEST WAS PERFORMED AT:[facility] [place] [id number] ROJO MD Swab 09/13/2024 9:32 AM EDT 09/13/2024 1:33 PM EDT Linda Gamez CNM LAB BODY FLUIDS AND STOOL S ORDERABLES Final Result [facility] [address] [place] [phone] * Hepatitis C Antibody with Reflex to HCV, RNA, Quantitative, Real-Time PCR (03/27/2023 10:37 AM EST) Pathologist [facility] [place] Hepatitis C Antibody Nonreactive Nonreactive [facility] Comment:Antibodies to HCV no t detected; does not exclude early acuteHCV infection. Blood Venous blood specimen / Unknown 03/27/2023 10:37 AM EST 03/27/2023 11:48 AM EST us Marilia Castillo MD LAB BLOOD ORDERABLES Final Resul t Performing Organization Address [facility] Co de Phone Number [facility] [address] [place] [phone] * HIV-1/2 Antigen and Antibodies, Fourth Generation, with Reflexes (03/27/2023 10:37 AM EST) HIV AB/AG Nonreactive Nonreactive [facility] Comment:HIV-1 p24 Ag and/or HIV-1/HIV-2 Ab not detected.A test result that is nonreactive does not exclude thepossibility of exposure to or infection with HIV-1 and/orHIV-2. Nonreactive results in this assay for individualswith prior exposure to HIV-1 and/or HIV-2 may be due toantigen and antibody levels that are below the limit ofdetection of this assay.The [employer] HIV Ag/Ab Combo assay result andsupplemental assay results should be interpreted inconjunction with the patient's clinical presentation,history and other laboratory results. If the results areinconsistent with clinical evidence, additional testing issuggested to confirm the result. Blood Venous blood specimen / Unknown 03/27/2023 10:37 AM EST 03/27/2023 11:48 AM EST us Marilia Castillo MD LAB BLOOD ORDERABLES Final Resul t Performing Organization Address City/[facility] Co de Phone Number [facility] [address] [place] [phone] from Last 3 Months or Most Recently Relevant to Health Maintenance Insurance [facility] Care Teams Wire Repairer Relationship Specialty Start Date End Date Marliia Castillo MD [address] [place] [phone] PCP - General Family Medicine 03/27/23
--- OUTSIDE RECORDS SUMMARY | 2024-11-25 12:22 | XMS_ITS | Encounter Summary ---
Author Organization [facility] Address [address] [place] [phone] Phone Care Team Providers Care Direct Sales Professional Name Role Phone Tiffanie Caputo NP Primary Care Provider Jane horton Encounter Details Date Type Department Care Team (Late st Contact Info) Description 07/28/2009 Documentation [facility] Family Medicine [address] [place] [address] Family Medicine, Physician [address] [place] [address] Social History Tobacco Use Types Packs/Day Years [...] on filedocumented in this encounter Care Teams Direct Sales Professional Relationship Specialty Start Date End Date Tiffanie Caputo NP PCP - General 10/18/16 06/19/22 documented as of this encounter
--- OUTSIDE RECORDS SUMMARY | 2024-11-25 12:22 | XMS_ITS | Encounter Summary ---
Author Organization [employer] Address [address] [facility] [address] 7[address] [place] [address] Care Team Providers Care Conductor And Engineer Name Role Phone Marilia Castillo MD Primary Care Provider [phone] Reason for Visit * Reason Onset Date Comments Nurse Triage 11/22/2024 Encounter Details Date Type Department Care Team ([facility] st Contact Info) Description 11/22/2024 Telephone [facility] [address] [place], [place] [phone] Marilia Castillo MD [address] [place], [place] [phone] Nurse Triage Social History Tobacco Use Types Packs/Day Years [...] encounter Miscellaneous Notes * Telephone Encounter - Annette Benson RN - 11/22/2024 3:45 PM EDT Triage call Pt reports headache for a week now. Pt reports a pressure is felt behind right ear toward back of head. Pt reports it is constant. Neg for fever, stiff neck . Pt has taken tylenol without effect. Pt also reports some weakness in left arm at times and attributes this to possible increased anxiety. Pt reports mother has migraines. Home care is reviewed with Pt. Pt is advised to come to [facility] open till 8pm today, 830am -800pm tomorrow. Pt agrees with disposition and insurance is verified as active. Protocol Used: Headache (Adult) Protocol-Based Disposition: See in Office or Video Visit Today or Tomorrow Video visit not offered Positive Triage Question: * Moderate headache (e.g., interferes with normal activities) present > 24 hours and unexplained * All higher-acuity triage questions were negative Care Advice Discussed: * Reassurance and Education - Muscle Tension Headache * Pain Medicines * Rest for Headache * Cold Pack for Headache * Reasons To Call Back - Severe headache lasts over 2 hours after pain medicine - Headache lasts over 24 hours despite using a pain medicine - You become worse * Telephone Encounter - Alex Aguilar - 11/22/2024 3:14 PM EDT Symptoms: Headache, Lethargic (Tired) Outcome: Schedule an urgent appointment (within 4 hours) or talk to a nurse or provider soon Reason: Getting worse Please contact pt at [phone]. documented in this encounter Plan of Treatment Upcoming Encounters Date Type Department Care Team (Late st Contact Info) Description 12/20/2024 11:30 AM EDT Office Visit [facility] [address] [place] [phone] Marilia Castillo MD [address] [place] [address] 01/06/2025 10:15 AM EDT Office Visit [facility] [address] [place] [address] Marilia Castillo MD [address] [place] [address] documented as of this encounter Visit Diagnoses Not on filedocumented in this encounter Additional Health Concerns Assessment Noted Time PHQ-9 Depression Total Score: 0 09/14/19 25 9:20 AM EDT documented as of this encounter Care Teams Conductor And Engineer Relationship Specialty Start Date End Date Mrailia Casitllo MD [address] [place] [address] PCP - General Family Medicine 03/27/23 documented as of this encounter
--- OUTSIDE RECORDS SUMMARY | 2024-11-25 12:22 | XMS_ITS | Encounter Summary ---
Author Organization [employer] Address [address] [facility] 7t [place] [address] Care Team Providers Care Oil And Gas Principal Name Role Phone Marilia Castillo MD Primary Care Provider [phone] Reason for Visit * Reason Comments Med Refill Encounter Details Date Type Department Care Team ([facility] st Contact Info) Description 02/15/2024 Refill [facility] [address] [place] [address] Maggie Gonzalez MD [address] [place] [address] Social History Tobacco Use Types Packs/Day Years [...] Description 12/20/2024 11:30 AM EDT Office Visit [facility] [address] [place] [phone] Marilia Castillo MD [address] [place] [address] 01/06/2025 10:15 AM EDT Office Visit [facility] [address] [place] [address] Marilia Castillo MD [address] [place] [address] documented as of this encounter Visit Diagnoses Not on filedocumented in this encounter Additional Health Concerns Assessment Noted Time PHQ-9 Depression Total Score: 0 03/27/19 9:28 AM EST documented as of this encounter Care Teams Oil And Gas Principal Relationship Specialty Start Date End Date Marilia Castillo MD [address] [place] [phone] PCP - General Family Medicine 03/27/23 documented as of this encounter
--- OUTSIDE RECORDS SUMMARY | 2024-11-25 12:22 | XMS_ITS | Encounter Summary ---
Author Organization [facility] Address [address] [place] [address] Phone Care Team Providers Care Field Service Representative Name Role Phone Tiffanie Caputo NP Primary Care Provider Jane horton Encounter Details Date Type Department Care Team (Late st Contact Info) Description 06/25/2013 Documentation [facility] Family Medicine [address] [place] [address] Family Medicine, Physician [facility] [place] [address] Social History Tobacco Use Types Packs/Day Years [...] on filedocumented in this encounter Care Teams Field Service Representative Relationship Specialty Start Date End Date Tiffanie Caputo NP PCP - General 10/18/16 06/19/22 documented as of this encounter
--- OUTSIDE RECORDS SUMMARY | 2024-11-25 12:22 | XMS_ITS | Encounter Summary ---
Author Organization [employer] Address [address] [facility] 7t [place] [address] Care Team Providers Care Plain Clothes Police Officer Name Role Phone Marilia Castillo MD Primary Care Provider [phone] Reason for Visit * Reason Comments Med Refill Encounter Details Date Type Department Care Team ([facility] st Contact Info) Description 01/12/2024 Refill [facility] [address] [place] [address] Maggie Gonzalez MD [address] [place] [address] Social History Tobacco Use Types Packs/Day Years [...] Office Visit [facility] [address] [place] [address] Marilia Castillo MD [address] [place] [address] 01/06/2025 10:15 AM EDT Office Visit [facility] [address] [place] [address] Marilia Castillo MD [address] [place] [address] documented as of this encounter Visit Diagnoses Not on filedocumented in this encounter Additional Health Concerns Assessment Noted Time PHQ-9 Depression Total Score: 0 03/27/19 9:28 AM EST documented as of this encounter Care Teams Plain Clothes Police Officer Relationship Specialty Start Date End Date Marilia Castillo MD [address] [place] [address] PCP - General Family Medicine 03/27/23 documented as of this encounter
[2024-11-25 12:36] LABS: Alanine Aminotransferase 29 U/L (0-31); Albumin Level 4.1 g/dL (3.5-5.0); Alkaline Phosphatase 72 U/L (39-117); Anion Gap 9 (12-20); Aspartate Amino Transferase 26 U/L (5-31); Blood Urea Nitrogen 10 mg/dL (9-16); Calcium 9.1 mg/dL (8.4-10.2); Carbon Dioxide 31 mmol/L (22-29); Chloride 106 mmol/L (96-108); Estimated Glomerular Filt Rate > 60; Potassium 3.8 mmol/L (3.3-5.1); Sodium 142 mmol/L (135-145); Total Protein 7.1 g/dL (6.5-8.0)
== END 2024-11-25 10:24 | disposition home or self-care (01) ==
LOC: HO.HHCL 10:23
PROVIDERS: PCP Family Medicine; Visit Provider Pediatrics
DX: N92.6 Irregular menstruation, unspecified (principal); R53.83 Other fatigue
CPT/HCPCS: 36415; 80053; 82550; 84403; 84443; 85025; 85652; 86140; 86308

== ENCOUNTER 2024-12-09 10:09 | Outpatient (REF) | payer OTHER, MEDICAID, SELFPAY ==
--- OUTSIDE RECORDS SUMMARY | 2024-12-09 09:30 | XMS_ITS | Encounter Summary ---
Author Organization [employer] Address [address] [facility] 7t [place] [address] Care Team Providers Care Cytology Laboratory Manager Name Role Phone Marilia Castillo MD Primary Care Provider [phone] Reason for Referral * Imaging (Urgent) - Authorized Specialty Diagnoses / Procedures Referred By Contac t Referred To Contact Radiology Diagnoses Pelvic pain Procedures US Pelvis Transvaginal Linda Gamez CNM [address] [place] [address] Phone: tel: fax: [address] Phone: tel: fax: Referral ID Status Reason Start Date Expiration Date V isits Requested Visits Authorized [id number] Authorized 12/09/2024 12/09/2025 1 1 * Imaging (Urgent) - Authorized Specialty Diagnoses / Procedures Referred By Contac t Referred To Contact Radiology Diagnoses Pelvic pain Procedures Us Pelvis complete Linda Gamez CNM [address] [place] [address] Phone: tel: fax: [address] Phone: tel: fax: Referral ID Status Reason Start Date Expiration Date V isits Requested Visits Authorized [id number] Authorized 12/09/2024 12/09/2025 1 1 Reason for Visit * Reason Comments CHW - Office Visit Encounter Details Date Type Department Care Team ([facility] st Contact Info) Description 12/09/2024 9:30 AM EDT Office Visit [facility] [address] [place] [address] Linda Gamez CNM [address] [place] [address] Irregular menstruation (Primary Dx); Pelvic pain; Vaginal discharge Social History Tobacco Use Types Packs/Day Years [...] Date Recorded No desire to become (finding) 1 Sex and Gender Information Value Date Recorded Sex Assigned at Female 12/05/2022 1:28 PM EDT Legal Sex Female 1:24 PM EDT Gender Identity Female 12/05/2022 1:28 PM EDT Sexual Orientation Don't know 01/01/2023 2: 23 PM EDT documented as of this encounter Last Filed Vital Signs Vital Sign Reading Time Taken Comments Blood Pressure 118/68 12/09/2024 9:54 AM EDT Pulse 76 12/09/2024 9:54 AM EDT Temperature 36.5 C (97.7 F) 12/09/2024 9:54 AM EDT Respiratory Rate 14 12/09/2024 9:54 AM EDT Oxygen Saturation 98% 12/09/2024 9:54 AM EDT Inhaled Oxygen Concentration - - Weight 60.4 kg (133 lb 3.2 oz) 12/09/2024 9:54 A M EDT Height - - Body Mass Index 22.86 10/02/2024 12:27 PM EDT documented in this encounter Progress Notes * Linda Gamez CNM - 12/09/2024 9:30 AM EDT Subjective Patient ID: Vi Car is a 19 y.o. female who presents for irregular periods New onset frequent bleeding. She wonders about PCOS. Presumptively diagnosed in past, was on oral contraceptive pill, but didn't like it. Prior history of infrequent menses. Notes facial acne, hair on face and abdomen. Normal TSH,hemoglobin/hematocrit 11/2024, normal prolactin 09/2024. Testosterone elevated at 80 11/2024.. Normal pelvic ultrasound 07/2024. Normal abdominal ultrasound 10/2024. Treated for chlamydia 07/2024. Gonorrhea/Chlamydia/trichomonas negative 09/2024. Mycoplasma testing ordered 09/2024 due to persistent symptoms, needs to be collected. No new partners since last STI testing. Still notes persistent discharge as well as newer onset pelvic pain and more frequent bleeding for past few months. Last sexually active 10/2024. test negative today. LMP 829 x 5 days, typical for her. Took EC 10/2024. Bled 3 times in 09/2024. 7/2 x 5, 09/25 x 4, 10/06x 5. No EC use preceding frequent bleeding. Menses heavy and painful at times. Would like pelvic exam today. Review of Systems Constitutional: Negative for chills and fever. Gastrointestinal: Positive for constipation. Negative for diarrhea, nausea and vomiting. Genitourinary: Positive for menstrual problem, pelvic pain, vaginal bleeding and vaginal discharge.Negative for dyspareunia, dysuria and vaginal pain. Objective BP 118/68 (BP Location: Left arm, Patient Position: Sitting, BP Cuff Size: Adult) Pulse 76 Temp97.7 ??F (36.5 ??C) (Oral) Resp 14 Wt 133 lb 3.2 oz (60.4 kg) LMP 11/05/2024 SpO2 98% BMI22.86 kg/m?? 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 Constitutional: Appearance: Normal appearance. Abdominal: General: There is no distension. Palpations: Abdomen is soft. Tenderness: There is abdominal tenderness in the right lower quadrant, suprapubic area and left lower quadrant. There is no right CVA tenderness, left CVA tenderness, guarding or rebound. Comments: Mild tenderness left/right and mid lower abdomen Genitourinary: General: Normal vulva. Labia: Right: No rash, tenderness, lesion or injury. Left: No rash, tenderness, lesion or injury. Vagina: No signs of injury and foreign body. Vaginal discharge present. No erythema, tenderness, bleeding or lesions. Cervix: Friability present. No cervical motion tenderness, discharge, lesion, erythema, cervical bleeding or eversion. Uterus: Normal. Not enlarged and not tender. Adnexa: Right adnexa normal and left adnexa normal. Right: No mass, tenderness or fullness. Left: No mass, tenderness or fullness. Comments: Yellow discharge noted Skin: Comments: Pustular acne across face Neurological: Mental Status: She is alert. Psychiatric: Mood and Affect: Mood normal. Behavior: Behavior normal. Assessment/Plan Diagnoses and all orders for this visit: Irregular menstruation - POCT , urine manually resulted - Testosterone, Total, males (Adult), IA; Future New onset more frequent bleeding. test negative today. Will check mycoplasma panel. Bleeding pattern prior to this more and recent elevated testosterone consistent with PCOS. Will repeat testosterone as precaution. Reviewed diagnosis, common symptoms and treatments. Reviewed that oral cont raceptive pill could help regulate menses, improve menstrual pain and improve androgenic symptoms. She is not interested in using hormonal contraception for symptoms. Advised to followup with PCP to discuss treatment for acne. Report if no menses at least every 2 months or if frequent bleeding recurs. Will use Provera as needed if no menses. Pelvic pain - Us Pelvis complete; Future - US Pelvis Transvaginal; Future Not suspicious for PID. Mycoplasma panel sent today. In Will repeat pelvic ultrasound and contact with results. Offered NSAIDS for menstrual pain. She declines for now. Vaginal discharge All testing negative to date. Mycoplasma panel sent as previously ordered. documented in this encounter Plan of Treatment Upcoming Encounters Date Type Department Care Team ([facility] st Contact Info) Description 12/20/2024 11:30 AM EDT Office Visit [address] [address] Marilia Castillo MD [address] [place] [address] 01/06/2025 10:15 AM EDT Office Visit [address] [address] Marilia Castillo MD [address] [place] [phone] Scheduled Orders Name Type Priority Associated Diagnoses Orde r Schedule Testosterone, Total, males (Adult), IA Lab Routine Irregular menstruation Expected: 12/09/2024, Expires: 12/09/2025 Us Pelvis complete Imaging Urgent Pelvic pain Expected: 12/09/2024, Expires: 12/09/2025 US Pelvis Transvaginal Imaging Urgent Pelvic pain Expected: 12/09/2024, Expires: 12/09/2025 documented as of this encounter Procedures Procedure Name Priority Date/Time Associated Diagnosis Comments POCT , URINE Routine 12/09/2024 9:55 AM EDT Irregular menstruation documented in this encounter Results * POCT , urine manually resulted (12/09/2024 9:55 AM EDT) Preg Test, Ur Negative Negative, Indeterminate, None Detected, Invalid, Specimen unsatisfactory for evaluation, Weakly Positive, 2+ QC Media Lot # [id number] Lot# Expiration Date [id number] Urine 12/09/2024 9:55 AM EDT Linda Gamez CNM POINT OF CARE TEST ENTER/ EDIT ORDERABLES Final Result documented in this encounter Visit Diagnoses Diagnosis Irregular menstruation- Primary Irregular menstrual cycle Pelvic pain Vaginal discharge Leukorrhea, not specified as infective documented in this encounter Additional Health Concerns Assessment Noted Time PHQ-9 Depression Total Score: 0 09/14/19 25 9:20 AM EDT documented as of this encounter Care Teams Cytology Laboratory Manager Relationship Specialty Start Date End Date Marilia Castillo MD [address] [place] [address] PCP - General Family Medicine 03/27/23 documented as of this encounter
--- OUTSIDE RECORDS SUMMARY | 2024-12-09 11:33 | XMS_ITS | Encounter Summary ---
Author Organization [employer] Address [address] [address] [place] [address] Care Team Providers Care Coat Room Attendant Name Role Phone Marilia Castillo MD Primary Care Provider [phone] Reason for Visit * Reason Onset Date Comments Lab Orders 12/08/2024 Encounter Details Date Type Department Care Team ([facility] st Contact Info) Description 12/08/[address] [facility] [address] [place], [place] [phone] Marilia Castillo MD [address] [place], [place] [phone] Lab Orders Social History Tobacco Use Types Packs/Day Years [...] encounter Miscellaneous Notes * Telephone Encounter - Jack Vicente - 12/08/2024 4:30 PM EDT Symptoms: Abdominal Pain - Female - Not , Acne - Caller Reports, Hair Loss, Lethargic (Tired), Foot or Ankle Injury, Back Pain - Not From Injury Outcome: Transfer to a nurse or provider NOW! Reason: Acting confused The caller accepted this outcome. Contact pt at [phone] * Telephone Encounter - Kera Sylvester RN - 12/08/2024 3:30 PM EDT Telephone call returned to pt regarding below message. No answer, left v/m. Pt needs triaged to determine what symptoms she is having that leads her to believe she has PCOS orendometriosis and needs an appointment to address and order. * Telephone Encounter - Jack Vicente - 12/08/2024 3:22 PM EDT Tc from pt requesting orders to be sent to test for PCOS and Endometriosis. contact pt when the orders are ready to be done at [phone] documented in this encounter Plan of Treatment Upcoming Encounters Date Type Department Care Team (Late st Contact Info) Description 12/20/2024 11:30 AM EDT Office Visit [facility] [place] [address] Mar[place] [address] 01/06/2025 10:15 AM EDT Office Visit [facility] [place] [address] Marilia Castillo MD [address] [place], [place] [phone] documented as of this encounter Visit Diagnoses Not on filedocumented in this encounter Additional Health Concerns Assessment Noted Time PHQ-9 Depression Total Score: 0 09/14/19 25 9:20 AM EDT documented as of this encounter Care Teams Coat Room Attendant Relationship Specialty Start Date End Date Marilia [place] [address] PCP - General Family Medicine 03/27/23 documented as of this encounter
--- OUTSIDE RECORDS SUMMARY | 2024-12-09 11:33 | XMS_ITS | Encounter Summary ---
Author Organization [employer] Address [address] [facility] [address] 7[address] [place] [address] Care Team Providers Care Theater Company Producer Name Role Phone Marilia Castillo MD Primary Care Provider [phone] Encounter Details Date Type Department Care Team ([facility] st Contact Info) Description 12/08/2024 Telephone [facility] [address] [place], [place] [phone] Marilia Castillo MD [address] [place] [address] Social History Tobacco Use Types Packs/Day Years [...] Description 12/20/2024 11:30 AM EDT Office Visit [facility] [address] [place] [address] Marilia Castillo MD [address] [place] [address] 01/06/2025 10:15 AM EDT Office Visit [facility] [address] [place] [address] Marilia Castillo MD [address] [place] [address] documented as of this encounter Visit Diagnoses Not on filedocumented in this encounter Additional Health Concerns Assessment Noted Time PHQ-9 Depression Total Score: 0 09/14/19 25 9:20 AM EDT documented as of this encounter Care Teams Theater Company Producer Relationship Specialty Start Date End Date Marilia Castillo MD [address] [place] [phone] PCP - General Family Medicine 03/27/23 documented as of this encounter
--- OUTSIDE RECORDS SUMMARY | 2024-12-09 11:33 | XMS_ITS | Encounter Summary ---
Author Organization [employer] Address [address] [facility] [address] [address] 7[address] [place] [address] Care Team Providers Care Chemical Laboratory Chief Name Role Phone Marilia Castillo MD Primary Care Provider [phone] Reason for Visit * Reason Onset Date Comments Referral 12/08/2024 Encounter Details Date Type Department Care Team ([facility] st Contact Info) Description 12/08/2024 Telephone [facility] [address] [place] [address] Marilia Castillo MD [address] [place] [address] Referral Social History Tobacco Use Types Packs/Day Years [...] Telephone Encounter - Annette Benson RN - 12/08/2024 4:50 PM EDT Triage call Pt was seen in [facility] 11/23/24 and irregular menstrual cycle was a concern. 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 Pt last period was 11/05/24- 11/09/24. Pt is not is not taking control medication. ASK apt with MADHAVI Gamez 12/09/24 @ 930am. Pt agrees with disposition and insurance is verified as active prior to booking. Protocol Used: Vaginal Bleeding - Abnormal (Adult) Protocol-Based Disposition: See in Office or Video Visit Today Override (Final) Disposition: See in Office or Video Visit Today or Tomorrow Override Reason: No appointments available Video visit not offered Positive Triage Question: * Patient wants to be seen * All higher-acuity triage questions were negative Care Advice Discussed: * Reassurance and Education - Short or Long Menstrual Cycles * Reasons To Call Back - Severe abdomen pain or lightheadedness occurs - test is positive - Bleeding worsens - Bleeding or spotting lasts over 7 days - You become worse * Telephone Encounter - Jack Vicente - 12/08/2024 3:24 PM EDT Tc from pt requesting a referral for CT Scan and a pelvic Ultrasound. Contact pt when the referral has been sent at [phone] documented in this encounter Plan of Treatment Upcoming Encounters Date Type Department Care Team (Late st Contact Info) Description 12/20/2024 11:30 AM EDT Office Visit [facility] [address] [place] [address] Marilia Castillo MD [address] [place] [address] 01/06/2025 10:15 AM EDT Office Visit [facility] [address] [place] [phone] Marilia Castillo MD [address] [place] [phone] documented as of this encounter Visit Diagnoses Not on filedocumented in this encounter Additional Health Concerns Assessment Noted Time PHQ-9 Depression Total Score: 0 09/14/19 25 9:20 AM EDT documented as of this encounter Care Teams Chemical Laboratory Chief Relationship Specialty Start Date End Date Marilia Castillo MD [address] [place] [phone] PCP - General Family Medicine 03/27/23 documented as of this encounter
--- OUTSIDE RECORDS SUMMARY | 2024-12-09 11:33 | XMS_ITS | Encounter Summary ---
Author Organization [facility] Address [address] [place] [address] Phone Care Team Providers Care Cement Sack Breaker Name Role Phone Tiffanie Caputo NP Primary Care Provider Jane horton Encounter Details Date Type Department Care Team (Late st Contact Info) Description 06/24/2015 Documentation [facility] Family Medicine [address] [place] [address] Family Medicine, Physician [facility] [place] [address] Social History Tobacco Use Types Packs/Day Years [...] on filedocumented in this encounter Care Teams Cement Sack Breaker Relationship Specialty Start Date End Date Tiffanie Caputo NP PCP - General 10/18/16 06/19/22 documented as of this encounter
--- OUTSIDE RECORDS SUMMARY | 2024-12-09 11:33 | XMS_ITS | Encounter Summary ---
Author Organization [employer] Address [address] [facility] [place] [address] Care Team Providers Care Supplier Manager Name Role Phone Marilia Castillo MD Primary Care Provider [phone] Encounter Details Date Type Department Care Team (Latest Contact Info) Description 12/09/2024 Travel Social History Tobacco Use Types Packs/Day [...] t he electric, gas, oil or water [employer] threatened to shut off services in your [...] 12/20/2024 11:30 AM EDT Office Visit [facility] [address] [place] [address] Marilia Castillo MD [address] [place] [address] 01/06/2025 10:15 AM EDT Office Visit [facility] [address] [place] [address] Marilia Castillo MD [address] [place] [phone] documented as of this encounter Visit Diagnoses Not on filedocumented in this encounter Additional Health Concerns Assessment Noted Time PHQ-9 Depression Total Score: 0 09/14/19 9:20 AM EDT documented as of this encounter Care Teams Supplier Manager Relationship Specialty Start Date End Date Marilia Castillo MD [address] [place] [phone] PCP - General Family Medicine 03/27/23 documented as of this encounter
--- OUTSIDE RECORDS SUMMARY | 2024-12-09 11:34 | XMS_ITS | Clinical Summary ---
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 [...] Encounters Date Type Department Care Team Description 12/09/2024 9:30 AM EDT Office Visit [address] [address] Linda Gamez CNM Irregular menstruation (Primary Dx); Pelvic pain; Vaginal discharge 12/09/2024 Travel 12/08/2024 Telephone [facility] PEDS [address], [place] [phone] Marilia Castillo MD 12/08/[address] [address] Marilia Castillo MD Referral 12/08/[address] [address] Marilia Castillo MD Lab Orders 11/23/2024 3:20 PM EDT Office Visit [facility] [address] [place] [address] [phone] Amarjit Echevarria MD Nonintractable headache, unspecified chronicity pattern, unspecified headache type (Primary Dx); Fatigue, unspecified type; Irregular menstruation; Arm numbness; Anxiety 11/23/2024 Travel 11/22/[address] [address] Marilia Castillo MD Nurse Triage 11/10/[address] [address] Marilia Castillo MD Stable Lab Letter 11/10/2024 Results Follow-Up [address] [address] Pinky Bueno MD US Abdomen Limited 10/04/[address] [address] Linda Gamez CNM 10/02/2024 12:20 PM EDT Office Visit [facility] [address] [place] [address] Pinky Bueno MD Acute vaginitis (Primary Dx); Abdominal pain, unspecified abdominal location; UTI symptoms 10/02/2024 Orders Only [address] [address] Pinky Bueno MD 10/02/2024 Travel 10/01/[address] [address] Marilia Castillo MD Nurse Triage 09/22/2024 Orders Only [address] [address] Linda Gamez CNM Vaginal discharge (Primary Dx) 09/14/2024 Results Follow-Up [address] [address] Linda Gamez CNM Chlamydia/N. Gonorrhoeae RNA, TMA, Vagina 09/13/2024 9:15 AM EDT Office Visit [address] [address] Linda Gamez CNM Vaginal discharge (Primary Dx); Elevated prolactin level; Pelvic pain 09/13/[address] [address] Marilia Castillo MD 09/13/2024 Travel 09/09/[address] [address] Marilia Castillo MD chartprep from Last 3 Months Immunizations Immunization Administration [...] unspecified 10/17/2015 Meningococcal MCV4P ACYW-135 10/17/2015 Novel [id number], all formulations 02/24/2009,01/19/2009 Pneumococcal Conjugate PCV 13 [...] oz) 12/09/2024 9:54 A M EDT Height 162.6 cm (5' 4 ) 10/02/2024 12:27 PM EDT Body Mass Index 22.86 10/02/2024 12:27 PM EDT Plan of Treatment Upcoming Encounters Date Type Department Care Team (Late st Contact Info) Description 12/20/2024 11:30 AM EDT Office Visit [facility] MEDICINE [address] [place] [address] Marilia Castillo MD [address] [place] [address] 01/06/2025 10:15 AM EDT Office Visit [facility] MEDICINE [address] [place] [address] Marilia Castillo MD [address] [place] [address] [phone] Health Maintenance Due Date Last Done Comments Meningococcal B Vaccine (1 of 2 - Standard) 2020 SDOH Screening 03/19/2024 03/19/2023 COVID-19 Vaccine ( season) 2024 Influenza Vaccine (#1) 2024 9, 12/16/2018, 12/22/2015, Additional history exists Alcohol/Substance Use Screening 09/13/2025 09/13/2024 Depression Screening 09/13/2025 09/13/2024, 09/14/19 25 Disability Screening 09/13/2025 09/13/2024 Chlamydia and Gonorrhea Screening 10/02/2025 10/02/2024, 09/13/2024, 07/23/2024, Additional history exists Family Planning (PISQ) 12/09/2025 12/09/2024 Tobacco Screening 12/09/2025 12/09/2024 DTaP/Tdap/Td Vaccines (8 - Td or Tdap) [...] Routine 12/09/2024 9:55 AM EDT Irregular menstruation C-REACTIVE PROTEIN Routine 11/25/2024 10 :43 AM EDT Fatigue, unspecified type SED RATE BY MODIFIED WESTERGREN Routine 11/25/2024 10:43 AM EDT Fatigue, unspecified type TESTOSTERONE, FREE, BIOAVAILABLE AND TOTAL, MS Routine 11/25/2024 10:43 AM EDT Irregular menstruation CREATINE KINASE, TOTAL Routine 11/25/2024 10:43 AM EDT Fatigue, unspecified type COMPREHENSIVE METABOLIC PANEL Routine 11/25/2024 10:43 AM EDT Fatigue, unspecified type MONONUCLEOSIS TEST, QUALITATIVE Routine 11/25/2024 10:43 AM EDT Fatigue, unspecified type CBC WITH AUTO DIFFERENTIAL Routine 11/25/2024 10:43 AM EDT Fatigue, unspecified type TSH W/REFLEX TO FT4 Routine 11/25/2024 1 0:43 AM EDT Fatigue, unspecified type US ABDOMEN [...] Recently Relevant to Health Maintenance Results * POCT , urine manually resulted (12/09/2024 9:55 AM EDT) Pathologist [facility] Preg Test, Ur Negative Negative, Indeterminate, None Detected, Invalid, Specimen unsatisfactory for evaluation, Weakly Positive, 2+ QC Media Lot # [id number] Lot# Expiration Date [id number] Urine 12/09/2024 9:55 AM EDT Linda Gamez CNM POINT OF CARE TEST ENTER/ EDIT ORDERABLES Final Result * TSH W/Reflex to FT4 (11/25/2024 10:43 AM EDT) Pathologist [facility] TSH reflex Free T4 1.40 0.32 - 4.0 uIU/mL [facility] Blood Venous blood specimen / Unknown 11/25/2024 10:43 AM EDT 11/25/2024 11:49 AM EDT Amarjit Echevarria MD LAB BLOOD ORDERABLES Final Resu lt [facility] [address] [place] [phone] * (ABNORMAL) CBC auto differential (11/25/2024 10:43 AM EDT) [facility] White Blood Count 7.1 4.8 - 10.8 X10*3/uL [facility] Red Blood Count 4.16(L) 4.20 - 5.50 X10*6/uL [facility] Hemoglobin 12.5 12.0 - 16.0 g/dl [facility] Hematocrit 37.3 37.0 - 47.0 % [facility] Mean Corpuscular Volume 89.7 80.0 - 98.0 fL [facility] Mean Corpuscular Hemoglobin 30.0 27.0 - 33.0 pg [facility] Mean Corpuscular HGB Conc 33.5 31.0 - 35.0 g/dl [facility] Red Cell Distribution Width 11.9 11.0 - 16.0 % [facility] Platelet Count 282 160 - 400 X10*3/uL [facility] Mean Platelet Volume 9.3(L) 9.4 - 12.3 fL [facility] Neutrophils Percent Auto 58.1 45 - 73 % [facility] Imm Gran Pct Auto 0.1 0.0 - 0.4 % [facility] Lymphocytes Percent Auto 30.6 20 - 40 % [facility] Monocytes Percent Auto 8.8 2 - 11 % [facility] Eosinophils Percent Auto 1.6 0 - 4 % [facility] Basophils Percent Auto 0.8 0 - 2 % [facility] NRBC Pct Auto 0.0 0.0 - 0.2 /100WBC [facility] Neutrophils Absolute Auto 4.1 2.0 - 8.3 x10*3/uL [facility] Imm Gran Abs Auto 0.01 0.00 - 0.03 X10*3/uL [facility] Lymphocytes Absolute Auto 2.2 1.2 - 4.9 X10*3/uL [facility] Monocytes Absolute Auto 0.6 0.1 - 1.2 X10*3/uL [facility] Eosinophils Absolute Auto 0.1 0.0 - 0.4 X10*3/uL [facility] Basophils Absolute Auto 0.1 0.0 - 0.2 X10*3/uL [facility] NRBC Abs Auto 0.000 0.0 - 0.012 X10*3/uL [facility] Blood Venous blood specimen / Unknown 11/25/2024 10:43 AM EDT 11/25/2024 11:49 AM EDT us Amarjit Echevarria MD LAB BLOOD ORDERABLES Final Resu lt Performing Organization Address City/[facility]/ZIP Co de Phone Number [facility] [address] [place] [address] [phone] * (ABNORMAL) Testosterone, Free, Bioavailable And Total MS (11/25/2024 10:43 AM EDT) Testosterone, Total, MS 80(A) 2 - 45 ng/dL [facility] Comment:For additional infor mation, please refer tohttp://education.Room n House/faq/PfgwsQjmmkuhajyszSCMHVFVQF838(This link is being provided for informational/educational purposes only.)This test was developed and its analytical performancecharacteristics have been determined by [employer] [place], [place]. It hasnot been cleared or approved by the U.S. Food and DrugAdministration. This assay has been validated pursuantto the CLIA regulations and is used for clinicalpurposes. Testosterone, Free 6.6(A) 0.2 - 5.0 pg/mL [facility] Testosterone,Bioavailable 12.7(A) 0.5 - 8.5 ng/dL [facility] Sex Hormone Binding Globulin 52 17 - 124 nmol/L [facility] Albumin 4.2 3.6 - 5.1 g/dL [facility] Comment:THIS TEST WAS PERFOR MED AT:[employer] [place] [id number] MCELROY MD,PHD Blood Venous blood specimen / Unknown 11/25/2024 10:43 AM EDT 11/25/2024 11:49 AM EDT us Amarjit Echevarria MD LAB BLOOD ORDERABLES Final Resu lt [facility] [address] [place] [address] [phone] * (ABNORMAL) Mononucleosis Test, Qualitative (11/25/2024 10:43 AM EDT) Monotest Positive(A) Negative [facility] Blood Venous blood specimen / Unknown 11/25/2024 10:43 AM EDT 11/25/2024 11:49 AM EDT us Amarjit Echevarria MD LAB BLOOD ORDERABLES Final Resu lt Performing Organization Address [facility]/ZIP Co de Phone Number [facility] [address] [place] [phone] * Sed Rate by Modified Silvestre (11/25/2024 10:43 AM EDT) Pathologist [facility] Erythrocyte Sedimentation Rate 7 0 - 20 MM/HR [facility] Comment:Patients with polycy themia and many hemoglobin abnormalitiesmay have depressed sed rates whereas patients with anemiamay have elevated sed rates. Blood Venous blood specimen / Unknown 11/25/2024 10:43 AM EDT 11/25/2024 11:49 AM EDT us Amarjit Echevarria MD LAB BLOOD ORDERABLES Final Resu lt Performing Organization Address [facility] Co de Phone Number [facility] [address] [place] [phone] * C-reactive Protein (11/25/2024 10:43 AM EDT) Pathologist [facility] C Reactive Protein <0.10 < or = 0.50 mg/dL [facility] Blood Venous blood specimen / Unknown 11/25/2024 10:43 AM EDT 11/25/2024 11:49 AM EDT us Amarjit Echevarria MD LAB BLOOD ORDERABLES Final Resu lt Performing Organization Address [facility] Co de Phone Number [facility] [address] [place] [phone] * Creatine Kinase, Total (11/25/2024 10:43 AM EDT) Creatine Kinase Total 67 26 - 140 U/L [facility] Blood Venous blood specimen / Unknown 11/25/2024 10:43 AM EDT 11/25/2024 11:49 AM EDT Amarjit Echevarria MD LAB BLOOD ORDERABLES Final Resu lt [facility] [address] [place] [phone] * (ABNORMAL) Comprehensive Metabolic Panel (11/25/2024 10:43 AM EDT) Sodium 142 135 - 145 mmol/L [facility] Potassium 3.8 3.3 - 5.1 mmol/L [facility] Chloride 106 96 - 108 mmol/L [facility] Carbon Dioxide 31(H) 22 - 29 mmol/L [facility] Anion Gap 9(L) 12 - 20 [facility] Urea Nitrogen (BUN) 10 9 - 16 mg/dL [facility] Creatinine, Serum 0.73 0.5 - 1.4 mg/dL [facility] Estimated Glomerular Filt Rate >60 [facility] Comment:Chronic Kidney Disea se: Estimated GFR < 60 mL/min/1.45e9Nchpwb Kidney Disease: Estimated GFR < 15 mL/min/1.73m2 Glucose 88 60 - 115 mg/dL [facility] Calcium 9.1 8.4 - 10.2 mg/dL [facility] Bilirubin, Total 0.4 0.0 - 1.0 mg/dL [facility] Aspartate Amino Transferase 26 5 - 31 U/L [facility] Alanine Aminotransferase 29 0 - 31 U/L [facility] Total Protein 7.1 6.5 - 8.0 g/dL [facility] Albumin Level 4.1 3.5 - 5.0 g/dL [facility] Alkaline Phosphatase 72 39 - 117 U/L [facility] Blood Venous blood specimen / Unknown 11/25/2024 10:43 AM EDT 11/25/2024 11:49 AM EDT Amarjit Echevarria MD LAB BLOOD ORDERABLES Final Resu lt [facility] [address] [place] [phone] * US Abdomen Limited (11/04/2024 10:40 AM EDT) Anatomical Region Laterality Modality Abdomen Ultrasound 11/04/2024 10:4 0 AM EDT Narrative 11/04/2024 10:57 AM EDT [address] [address] Ultrasound Report Signed Patient: Vi Garner MR# : [id number] : 2005 Acct:[id number] Age/Sex: 19 / F ADM Date: 11/04/24 Loc: HO.US Attending Dr: Pinky Bueno MD Ordering Physician: Pinky Bueno MD Date of Service: 11/04/24 Procedure(s): US abdomen limited Accession Number(s): [id number] cc: Pinky Bueno MD; Marilia Castillo MD [...] OV> 11/04/24 1054 DD/ 1040 TD/TT: 11/04/24 104 Senior Solutions Engineer: Procedure Note Donotuseinterpreter, Image - 11/04/[address] [address] Ultrasound Report Signed Patient: Vi Garner NMR# : [id number] : 2005Acct:[id number] Age/Sex: 19 / FADM Date: 11/04/24 Loc: HO.US Attending Dr: Pinky Bueno MD Ordering Physician: Pinky Bueno MD Date of Service: 11/04/24 Procedure(s): US abdomen limited Accession Number(s): [id number] cc: Pinky Bueno MD; Marilia Castillo MD [...] Nitin Hunt MD 11/04/2024 10:54 AM EDT Dictated By: Nitin Lam MD Signed By: <Electronically signed by Nitin Sylvester MDin OV> 11/04/24 1054 DD/ 1040 TD/TT: 11/04/24 104 Senior Solutions Engineer: us Pinky Bueno MD IMG US PROCEDURES Final Result * Prolactin (10/06/2024 3:10 PM EDT) Prolactin 14.1 ng/mL [facility] Comment:Reference Range Fema les Non- 3.0-30.0 10.0-209.0 Postmenopausal 2.0-20.0THIS TEST WAS PERFORMED AT:[facility] [place] [id number] ROJO MD Blood Venous blood specimen / Unknown 10/06/2024 3:10 PM EDT 10/06/2024 3:57 PM EDT Linda Gamez [facility] LAB BLOOD ORDERABLES Danni l Result Performing Organization Address [facility]/ZIP Co de Phone Number [facility] [address] [place] [phone] * Bacterial Vaginosis (10/02/2024 12:56 PM EDT) TRICHOMONAS VAGINALIS DETECTION BY PCR NOT DETECTED Not Detect [facility] BACTERIAL VAGINOSIS DETECTION BY PCR NEGATIVE Negative [facility] Comment:The BV organism targ ets of [...] DETECTION BY PCR NOT DETECTED Not Detect [facility] Leila glab krusei PCR NOT DETECTED Not Detect [facility] 10/02/2024 12:5 6 PM EDT 10/02/2024 2:06 PM EDT us Pinky Bueno MD LAB MICROBIOLOGY - GENER AL ORDERABLES Final Result Performing Organization Address [facility]/ZIP Co de Phone Number [facility] [address] [place] [phone] * Chlamydia/N. Gonorrhoeae RNA, TMA, Urogenitial (10/02/2024 12:56 PM EDT) Only the most recent of2 resultswithin the time period is included. CT PCR NOT DETECTED Not Detect. [facility] Comment:A not detected test result does [...] psychologicalconsequences. NG PCR NOT DETECTED Not Detect. [facility] Comment:A not detected test result does [...] 12:56 PM EDT 10/02/2024 2:07 PM EDT us Pinky Bueno MD LAB MICROBIOLOGY - GENER AL ORDERABLES Final Result [facility] [address] [place] [phone] * Culture, Urine, Routine (10/02/2024 12:56 PM EDT) Urine Urine specimen obtained by clean catch procedure / Unknown 10/02/2024 12:56 PM EDT 10/02/2024 2:07 PM EDT Comment:UACC Narrative [facility] - 10/03/2024 9:02 AM EDT Urine Culture No growth. Specimen Source: Urine clean catch Result [facility] Pinky Bueno MD LAB MICROBIOLOGY - GENER AL ORDERABLES Final Result [facility] [address] [place] [phone] * POCT Urinalysis (10/02/2024 12:44 PM [...] Media Lot # [id number] Lot# Expiration Date Urine 10/02/2024 12:4 4 PM EDT Result [facility] Pinky Bueno MD POINT OF CARE TEST ENTER /EDIT ORDERABLES Final Result * POCT fern test, vaginal fluid manually resulted (09/13/2024 9:42 AM EDT) [facility] Prep Negative Comment:pH 5, otherwise nega tive. No whiff, clue, trich, yeast or wbc Vaginal Fluid Vaginal structure / Unknown 09/13/2024 9:42 AM EDT Result [facility] Linda Gamez CNM POINT OF CARE TEST ENTER/ EDIT ORDERABLES Final Result * Trichomonas RNA (Urine/Vaginal) (09/13/2024 9:32 AM EDT) Trichomas vaginalis RNA, QL, TMA NOT DETECTED NOT DETECTED [facility] Comment:For additional infor danilo, please refer tohttp://education.Room n House/faq/Trichomonastma(This link is being provided for informational/educational purposes only.)THIS TEST WAS PERFORMED AT:[facility] [place] [id number] ROJO MD Swab 09/13/2024 9:32 AM EDT 09/13/2024 1:33 PM EDT Linda Gamez CNM LAB BODY FLUIDS AND STOOL S ORDERABLES Final Result Performing Organization Address [facility]/ZIP Co de Phone Number [facility] [address] [place] [phone] * Hepatitis C Antibody with Reflex to HCV, RNA, Quantitative, Real-Time PCR (03/27/2023 10:37 AM EST) Pathologist [facility] Hepatitis C Antibody Nonreactive Nonreactive [facility] Comment:Antibodies to HCV no t detected; does not exclude early acuteHCV infection. Blood Venous blood specimen / Unknown 03/27/2023 10:37 AM EST 03/27/2023 11:48 AM EST Marilia Castillo MD LAB BLOOD ORDERABLES Final Resul t Performing Organization Address [facility]/ZIP Co de Phone Number [facility] [address] [place] [phone] * HIV-1/2 Antigen and Antibodies, Fourth Generation, with Reflexes (03/27/2023 10:37 AM EST) Pathologist [facility] HIV AB/AG Nonreactive Nonreactive [facility] Comment:HIV-1 p24 Ag and/or HIV-1/HIV-2 Ab not detected.A test result that is nonreactive does not exclude thepossibility of exposure to or infection with HIV-1 and/orHIV-2. Nonreactive results in this assay for individualswith prior exposure to HIV-1 and/or HIV-2 may be due toantigen and antibody levels that are below the limit ofdetection of this assay.The [employer] HIV Ag/Ab Combo assay result andsupplemental assay results should be interpreted inconjunction with the patient's clinical presentation,history and other laboratory results. If the results areinconsistent with clinical evidence, additional testing issuggested to confirm the result. Blood Venous blood specimen / Unknown 03/27/2023 10:37 AM EST 03/27/2023 11:48 AM EST us Marilia Castillo MD LAB BLOOD ORDERABLES Final Resul t [facility] [address] [place] [phone] [phone] from Last 3 Months or Most Recently Relevant to Health Maintenance Insurance [address] [address] HS PARTIAL Care Teams Cashier Clerk Relationship Specialty Start Date End Date Marilia Castillo MD [address] [place] [phone] PCP - General Family Medicine 03/27/23
--- OUTSIDE RECORDS SUMMARY | 2024-12-09 11:34 | XMS_ITS | Clinical Summary ---
Author Organization [facility] Address [address] [place] [phone] Phone Care Team Providers Care Powerhouse Engineer Name Role Phone Unavailable Primary Care [...] Other No family histo ry of *Sudden /HI under 55, No family history of ADD/ADHD, [...] 11/30/2013, 02/24/2009, Additional history exists COVID-19 Vaccine (1 - 2024- season) 2024 DTaP,Tdap,and Td Vaccines (7 - [...] HPV Vaccines Completed 04/25/2016, 12/08, 10/17/2015 Insurance [facility] NON PCC Member Subscriber Plan / Payer (Ef fective 2016-Present) Name:Vi Putnam Relation to Subscriber:Self Name:Vi Putnam Payer ID:Not on file Group ID:Not on file Type:Medicaid Address: [address] [employer]
--- OUTSIDE RECORDS SUMMARY | 2024-12-09 11:34 | XMS_ITS | Encounter Summary ---
Author Organization [employer] Address [address] [facility] [address] [place] [address] Care Team Providers Care Harm Reduction Worker Name Role Phone Marilia Castillo MD Primary Care Provider [phone] Reason for Visit * Reason Onset Date Comments Nurse Triage 11/22/2024 Encounter Details Date Type Department Care Team ([facility] st Contact Info) Description 11/22/2024 Telephone [facility] [address] [place], [place] [phone] Marilia Castillo MD [address] [place], [place] [phone] Nurse Triage Social History Tobacco Use Types [...] Pt. Pt is advised to come to [facility] open till 8pm today, 830am -800pm tomorrow. [...] Reason: Getting worse Please contact pt at [phone]. documented in this encounter Plan of Treatment Upcoming Encounters Date Type Department Care Team (Late st Contact Info) Description 12/20/2024 11:30 AM EDT Office Visit [facility] [address] [place] [phone] Marilia Castillo MD [address] [place] [phone] 01/06/2025 10:15 AM EDT Office Visit [facility] [address] [place] [address] Marilia Castillo MD [address] [place] [phone] documented as of this encounter Visit Diagnoses Not on filedocumented in this encounter Additional Health Concerns Assessment Noted Time PHQ-9 Depression Total Score: 0 09/14/19 25 9:20 AM EDT documented as of this encounter Care Teams Harm Reduction Worker Relationship Specialty Start Date End Date Marilia Castillo MD [address] [place] [phone] PCP - General Family Medicine 03/27/23 documented as of this encounter
--- OUTSIDE RECORDS SUMMARY | 2024-12-09 11:34 | XMS_ITS | Encounter Summary ---
Author Organization [employer] Address [address] [facility] [address] [place] [address] Care Team Providers Care School Librarian Name Role Phone Marilia Castillo MD Primary Care Provider [phone] Reason for Visit * Reason Onset Date Comments Error 07/07/2023 Encounter Details Date Type Department Care Team ([facility] st Contact Info) Description 07/07/2023 Telephone [facility] [address] [place] [address] Marilia Castillo MD [address] [place] [address] Error Social History Tobacco Use Types Packs/Day [...] 11:30 AM EDT Office Visit [facility] [address] [place] [phone] Marilia Castillo MD [address] [place] [address] 01/06/2025 10:15 AM EDT Office Visit [facility] [address] [place] [phone] Marilia Castillo MD [address] [place] [phone] documented as of this encounter Visit Diagnoses Not on filedocumented in this encounter Additional Health Concerns Assessment Noted Time PHQ-9 Depression Total Score: 0 03/27/19 24 9:28 AM EST documented as of this encounter Care Teams School Librarian Relationship Specialty Start Date End Date Marilia Castillo MD [address] [place] [phone] PCP - General Family Medicine 03/27/23 documented as of this encounter
--- OUTSIDE RECORDS SUMMARY | 2024-12-09 11:34 | XMS_ITS | Encounter Summary ---
Author Organization [employer] Address [address] 7t [place] [address] Care Team Providers Care Agriculture Scientist Name Role Phone Marilia Castillo MD Primary Care Provider [phone] Encounter Details Date Type Department Care Team ([facility] st Contact Info) Description 03/29/2023 Orders Only [facility] [address] [place], [place] [phone] Marilia Castillo MD [address] [place], [place] [phone] Irregular menstruation (Primary Dx) Social History Tobacco [...] Description 12/20/2024 11:30 AM EDT Office Visit [facility] [address] [place] [address] Marilia Castillo MD [address] [place] [phone] 01/06/2025 10:15 AM EDT Office Visit [facility] [address] [place] [address] Marilia Castillo MD [address] [place] [address] documented as of this encounter Procedures Procedure [...] EST) Lipase 30 8 - 78 U/L [facility] 05/16/2023 5:03 AM EST 05/16/2023 5:07 AM EST Generic External Data Provider LAB BLOOD ORDERAB LES Final Result Performing Organization Address [facility] Co de Phone Number [facility] [address] [place] [phone] * Hepatic Function Panel (05/16/2023 5:03 AM EST) Bilirubin, Total 0.4 0.0 - 1.0 mg/dL [facility] Bilirubin, Direct 0.1 0.0 - 0.5 mg/dL [facility] Aspartate Amino Transferase 20 5 - 31 U/L [facility] Alanine Aminotransferase 18 0 - 31 U/L [facility] Total Protein 7.1 6.5 - 8.0 g/dL [facility] Albumin Level 4.0 3.5 - 5.0 g/dL [facility] Alkaline Phosphatase 87 39 - 117 U/L [facility] 05/16/2023 5:03 AM EST 05/16/2023 5:07 AM EST Generic External Data Provider LAB BLOOD ORDERAB LES Final Result Performing Organization Address [facility] de Phone Number [facility] [address] [place] [phone] * (ABNORMAL) Basic Metabolic Panel (05/16/2023 5:03 AM EST) Sodium 141 135 - 145 mmol/L [facility] Potassium 3.9 3.3 - 5.1 mmol/L [facility] Chloride 105 96 - 108 mmol/L [facility] Carbon Dioxide 29 22 - 29 mmol/L [facility] Anion Gap 11(L) 12 - 20 [facility] Urea Nitrogen (BUN) 14 9 - 16 mg/dL [facility] Creatinine, Serum 0.67 0.5 - 1.4 mg/dL [facility] Creatinine Clr Calc Pharmacy TNP [facility] Comment:Cannot be calculated ; patient is less than 19 years old. Estimated Glomerular Filt Rate >60 [facility] Comment:NOTE: For -Am erican individuals, multiply the result by 1.210.Chronic Kidney Disease: Estimated GFR < 60 mL/min/1.44s2Uxdfub Kidney Disease: Estimated GFR < 15 mL/min/1.73m2 Glucose 88 60 - 115 mg/dL [facility] Calcium 9.3 8.4 - 10.2 mg/dL [facility] 05/16/2023 5:03 AM EST 05/16/2023 5:07 AM EST us Generic External Data Provider LAB BLOOD ORDERAB LES Final Result Performing Organization Address [facility] Co de Phone Number [facility] [address] [place] [phone] * HCG, Qualitative, Urine (05/16/2023 5:03 AM EST) Urine NEGATIVE NEGATIVE [facility] Comment:This test was develo ped to detect early . Falsenegative results may occur after the 5th - 7th week ofpregnancy when using this test method. If clinicallyindicated, consider a serum hCG. 05/16/2023 5:03 AM EST 05/16/2023 5:07 AM EST us Generic External Data Provider LAB URINE ORDERAB LES Final Result Performing Organization Address [facility]/ZIP Co de Phone Number [facility] [address] [place] [address] [phone] * Urinalysis w/reflex microscopic (05/16/2023 5:03 AM EST) Color Urine Yellow [facility] Appearance Urine Turbid [facility] PH 8.5 5.0 - 9.0 [facility] Glucose Urine UA Negative Negative mg/dL [facility] Urine Blood Negative Negative [facility] Specific [place] - Urine 1.020 1.005 - 1.025 [facility] Urine Protein Negative Neg-Trace mg/dL [facility] Urine Ketones Negative Negative mg/dL [facility] Nitrite Urine Negative Negative [facility] Leukocyte Esterase Urine Negative Negative [facility] 05/16/2023 5:03 AM EST 05/16/2023 5:07 AM EST Narrative [facility] - 05/16/2023 5:12 AM EST [id number], Clean Catch us Generic External Data Provider LAB URINE ORDERAB LES Final Result [facility] [address] [place] [phone] * (ABNORMAL) CBC auto differential (05/16/2023 5:03 AM EST) White Blood Count 10.9(H) 4.8 - 10.8 X10*3/uL [facility] Red Blood Count 4.46 4.20 - 5.50 X10*6/uL [facility] Hemoglobin 13.1 12.0 - 16.0 g/dl [facility] Hematocrit 39.0 37.0 - 47.0 % [facility] Mean Corpuscular Volume 87.4 80.0 - 98.0 fL [facility] Mean Corpuscular Hemoglobin 29.4 27.0 - 33.0 pg [facility] Mean Corpuscular HGB Conc 33.6 31.0 - 35.0 g/dl [facility] Red Cell Distribution Width 12.1 11.0 - 16.0 % [facility] Platelet Count 277 160 - 400 X10*3/uL [facility] Mean Platelet Volume 8.9(L) 9.4 - 12.3 fL [facility] Neutrophils Percent Auto 60.6 45 - 73 % [facility] Imm Gran Pct Auto 0.2 0.0 - 0.4 % [facility] Lymphocytes Percent Auto 29.1 20 - 40 % [facility] Monocytes Percent Auto 7.9 2 - 11 % [facility] Eosinophils Percent Auto 1.8 0 - 4 % [facility] Basophils Percent Auto 0.4 0 - 2 % [facility] NRBC Pct Auto 0.0 0.0 - 0.2 /100WBC [facility] Neutrophils Absolute Auto 6.6 2.0 - 8.3 x10*3/uL [facility] Imm Gran Abs Auto 0.02 0.00 - 0.03 X10*3/uL [facility] Lymphocytes Absolute Auto 3.2 1.2 - 4.9 X10*3/uL [facility] Monocytes Absolute Auto 0.9 0.1 - 1.2 X10*3/uL [facility] Eosinophils Absolute Auto 0.2 0.0 - 0.4 X10*3/uL [facility] Basophils Absolute Auto 0.0 0.0 - 0.2 X10*3/uL [facility] NRBC Abs Auto 0.000 0.0 - 0.012 X10*3/uL [facility] 05/16/2023 5:03 AM EST 05/16/2023 5:07 AM EST us Generic External Data Provider LAB BLOOD ORDERAB LES Final Result [facility] [address] [place] [phone] * US Pelvis Transvaginal (04/24/2023 12:01 PM EST) Anatomical Region Laterality Modality Pelvis Ultrasound 04/24/2023 12:0 1 PM EST Narrative 04/25/2023 1:02 PM EST [address] [address] Ultrasound Report Signed Patient: Vi Garner MR# : [id number] : 2005 Acct:[id number] Age/Sex: 17 / F ADM Date: 04/24/23 Loc: HO.US Attending Dr: Marilia Castillo MD Ordering Physician: Marilia Castillo MD Date of Service: 04/24/23 Procedure(s): US pelvic and transvaginal Accession Number(s): [id number] cc: Marilia Castillo MD EXAMINATION: US PELVIS [...] in OV> 04/25/23 1258 DD/ 1201 TD/TT: Breaker Up Machine Operator: POONAM Procedure Note Donotuseinterpreter, Image - 04/25/[address] [address] Ultrasound Report Signed Patient: iV Garner [facility]# : [id number] : 2005Acct:[id number] Age/Sex: 17 / FADM Date: 04/24/23 Loc: HO.US Attending Dr: Marilia Castillo MD Ordering Physician: Marilia Castillo MD Date of Service: 04/24/23 Procedure(s): US pelvic and transvaginal Accession Number(s): [id number] cc: Marilia Castillo MD EXAMINATION: US PELVIS [...] in OV> 04/25/23 1258 DD/ 1201 TD/TT: Breaker Up Machine Operator: POONAM us Marilia Castillo MD IMG US PROCEDURES Edited Result - Final documented in this encounter Visit Diagnoses Diagnosis Irregular menstruation- Primary Irregular menstrual cycle documented in this encounter Additional Health Concerns Assessment Noted Time PHQ-9 Depression Total Score: 0 03/27/19 9:28 AM EST documented as of this encounter Care Teams Agriculture Scientist Relationship Specialty Start Date End Date Marilia Castillo MD [address] [place] [address] PCP - General Family Medicine 03/27/23 documented as of this encounter
--- OUTSIDE RECORDS SUMMARY | 2024-12-09 11:34 | XMS_ITS | Encounter Summary ---
Author Organization [facility] Address [address] [place] [address] Phone Care Team Providers Care Crimper Operator Name Role Phone Tiffanie Caputo VALUE STREAM LEADER Primary Care Provider Jane horton Encounter Details Date Type Department Care Team (Late st Contact Info) Description 10/24/2016 Conversion Encounter [facility] - [address] [address] Social History Tobacco Use Types Packs/Day Years [...] on filedocumented in this encounter Care Teams Crimper Operator Relationship Specialty Start Date End Date Tiffanie Caputo NP PCP - General 10/18/16 06/19/22 documented as of this encounter
--- OUTSIDE RECORDS SUMMARY | 2024-12-09 11:34 | XMS_ITS | Encounter Summary ---
Author Organization [employer] Address [address] [place] [address] Care Team Providers Care Clinical Trial Leader Name Role Phone Marilia Castillo MD Primary Care Provider [phone] Encounter Details Date Type Department Care Team ([facility] st Contact Info) Description 07/07/2023 Telephone [facility] [address] [place], [place] [phone] Marilia Castillo MD [address] [place], [place] [phone] Social History Tobacco Use Types Packs/Day Years [...] Description 12/20/2024 11:30 AM EDT Office Visit [facility] [address] [place] [address] Marilia Castillo MD [address] [place] [address] 01/06/2025 10:15 AM EDT Office Visit [facility] [address] [place] [address] Marilia Castillo MD [address] [place] [address] documented as of this encounter Visit Diagnoses Not on filedocumented in this encounter Additional Health Concerns Assessment Noted Time PHQ-9 Depression Total Score: 0 03/27/19 24 9:28 AM EST documented as of this encounter Care Teams Clinical Trial Leader Relationship Specialty Start Date End Date Marilia Castillo MD [address] [place] [phone] PCP - General Family Medicine 03/27/23 documented as of this encounter
--- OUTSIDE RECORDS SUMMARY | 2024-12-09 11:34 | XMS_ITS | Encounter Summary ---
Author Organization [employer] Address [address] 7t [place] [address] Care Team Providers Care Homicide Squad Lieutenant Name Role Phone Marilia Castillo MD Primary Care Provider [phone] Encounter Details Date Type Department Care Team ([facility] st Contact Info) Description 11/10/2024 Results Follow-Up [facility] [address] [place] [address] Pinky Bueno MD [address] [place] [address] US Abdomen Limited Social History Tobacco Use [...] 11:30 AM EDT Office Visit [facility] [address] [place] [address] Marilia Castillo MD [address] [place] [address] 01/06/2025 10:15 AM EDT Office Visit [facility] [address] [place] [address] Marilia Castillo MD [address] [place] [address] documented as of this encounter Visit Diagnoses Not on filedocumented in this encounter Additional Health Concerns Assessment Noted Time PHQ-9 Depression Total Score: 0 09/14/19 25 9:20 AM EDT documented as of this encounter Care Teams Homicide Squad Lieutenant Relationship Specialty Start Date End Date Marilia Castillo MD [address] [place] [address] PCP - General Family Medicine 03/27/23 documented as of this encounter
--- OUTSIDE RECORDS SUMMARY | 2024-12-09 11:34 | XMS_ITS | Encounter Summary ---
Author Organization [facility] Address [address] [place] [address] Phone Care Team Providers Care Big Data Analytics Lead Name Role Phone Tiffanie Caputo NP Primary Care Provider Jane horton Encounter Details Date Type Department Care Team (Late st Contact Info) Description 06/25/2013 Documentation [facility] Family Medicine [address] [place] [address] Family Medicine, [place] [address] Social History Tobacco Use Types Packs/Day Years [...] on filedocumented in this encounter Care Teams Big Data Analytics Lead Relationship Specialty Start Date End Date Tiffanie Caputo NP PCP - General 10/18/16 06/19/22 documented as of this encounter
--- OUTSIDE RECORDS SUMMARY | 2024-12-09 11:34 | XMS_ITS | Encounter Summary ---
Author Organization [employer] Address [address] [facility] 7t [place] [address] Care Team Providers Care Solid Waste Facility Supervisor Name Role Phone Marilia Castillo MD Primary Care Provider [phone] Reason for Visit * Reason Onset Date Comments Med Refill 07/01/2023 Encounter Details Date Type Department Care Team (Late st Contact Info) Description 07/01/2023 Refill [facility] [address] [place] [address] Maggie Gonzalez MD [address] [place] [address] Social History Tobacco Use Types Packs/Day Years [...] Office Visit [facility] [address] [place] [address] Marilia Castillo MD [address] [place] [address] 01/06/2025 10:15 AM EDT Office Visit [address] [address] Marilia Castillo MD [address] [place] [address] documented as of this encounter Visit Diagnoses Not on filedocumented in this encounter Additional Health Concerns Assessment Noted Time PHQ-9 Depression Total Score: 0 03/27/19 24 9:28 AM EST documented as of this encounter Care Teams Solid Waste Facility Supervisor Relationship Specialty Start Date End Date Marilia Castillo MD [address] [place] [address] PCP - General Family Medicine 03/27/23 documented as of this encounter
--- OUTSIDE RECORDS SUMMARY | 2024-12-09 11:34 | XMS_ITS | Encounter Summary ---
Author Organization [facility] Address [address] [place] [address] Phone Care Team Providers Care Digital Advertising Analyst Name Role Phone Tiffanie Caputo NP Primary Care Provider Jane horton Encounter Details Date Type Department Care Team (Late st Contact Info) Description 07/28/2009 Documentation [facility] Family Medicine [address] [place] [address] Family Medicine, Physician [address] [place] [address] Social History Tobacco Use Types Packs/Day Years [...] on filedocumented in this encounter Care Teams Digital Advertising Analyst Relationship Specialty Start Date End Date Tiffanie Caputo NP PCP - General 10/18/16 06/19/22 documented as of this encounter
--- OUTSIDE RECORDS SUMMARY | 2024-12-09 11:34 | XMS_ITS | Clinical Summary ---
Author Organization [facility] Address [address] [place] [address] Care Team Providers Care Internist Name Role Phone Unavailable Primary Care Provider [...] 5 season) 2024 Influenza Vaccine (#1) 2024 RSV Immunization Adult Patie nts (1 - 1-dose 75+ series) 10/12/2079 HIB Vaccines Aged Out No longer eligi [...]
--- OUTSIDE RECORDS SUMMARY | 2024-12-09 11:34 | XMS_ITS | Encounter Summary ---
Author Organization [employer] Address [address] [facility] 7t [place] [address] Care Team Providers Care Customer Service Clerk Name Role Phone Marilia Castillo MD Primary Care Provider [phone] Reason for Visit * Reason Comments Med Refill Encounter Details Date Type Department Care Team ([facility] st Contact Info) Description 01/12/2024 Refill [facility] [address] [place] [address] Maggie Gonzalez MD [address] [place] [address] Social History Tobacco Use Types Packs/Day Years [...] Description 12/20/2024 11:30 AM EDT Office Visit [facility] [address] [place] [address] Marilia Castillo MD [address] [place] [address] 01/06/2025 10:15 AM EDT Office Visit [facility] [address] [place] [address] Marilia Castillo MD [address] [place] [address] documented as of this encounter Visit Diagnoses Not on filedocumented in this encounter Additional Health Concerns Assessment Noted Time PHQ-9 Depression Total Score: 0 03/27/19 9:28 AM EST documented as of this encounter Care Teams Customer Service Clerk Relationship Specialty Start Date End Date Marilia Castillo MD [address] [place] [address] PCP - General Family Medicine 03/27/23 documented as of this encounter
--- OUTSIDE RECORDS SUMMARY | 2024-12-09 11:34 | XMS_ITS | Encounter Summary ---
Author Organization [employer] Address [address] [facility] 7t [place] [address] Care Team Providers Care Client Services Manager Name Role Phone Marilia Castillo MD Primary Care Provider [phone] Reason for Visit * Reason Comments Med Refill Encounter Details Date Type Department Care Team ([facility] st Contact Info) Description 02/15/2024 Refill [facility] [address] [place] [address] Maggie Gonzalez MD [address] [place] [address] Social History Tobacco Use Types Packs/Day Years [...] Description 12/20/2024 11:30 AM EDT Office Visit [facility] [address] [place] [address] Marilia Castillo MD [address] [place] [address] 01/06/2025 10:15 AM EDT Office Visit [facility] [address] [place] [address] Marilia Castillo MD [address] [place] [address] documented as of this encounter Visit Diagnoses Not on filedocumented in this encounter Additional Health Concerns Assessment Noted Time PHQ-9 Depression Total Score: 0 03/27/19 9:28 AM EST documented as of this encounter Care Teams Client Services Manager Relationship Specialty Start Date End Date Marilia Castillo MD [address] [place] [address] PCP - General Family Medicine 03/27/23 documented as of this encounter
[2024-12-14 21:53] LABS: Mycoplasma hominis PCR Not Detected (Not Detected)
== END 2024-12-09 10:10 | disposition home or self-care (01) ==
LOC: HO.HHCL 10:09
PROVIDERS: PCP Family Medicine; Visit Provider Advanced Practice Midwife
DX: N92.6 Irregular menstruation, unspecified (principal)
CPT/HCPCS: 36415; 84403; 87563; 87798

== ENCOUNTER 2025-01-05 14:05 | Outpatient (REF) | payer OTHER, MEDICAID, SELFPAY ==
--- NOTE | ~2025-01-05 | US_ITS ---
EXAMINATION: US PELVIS TRANSABDOMINAL AND TRANSVAGINAL HISTORY: pelvic pain, elevated testosterone COMPARISON: Comparison is made with the prior examination dated 07/23/2024. TECHNIQUE: Transabdominal and endovaginal real-time 2D cooper-scale ultrasound was performed. FINDINGS: Uterus: The uterus is normal in size, measuring 7.1 x 3.2 x 3.9 cm. Myometrium has a normal echotexture. No fibroids are identified. Endometrium: The endometrial stripe measures 6 mm in thickness. Right ovary: The right ovary measures 4.4 x 1.8 x 3.8 cm. The right ovary is normal in size and echotexture. Multiple follicles are noted. There is a 1.6 x 1.1 x 1.2 cm right paraovarian cyst. Left ovary: The left ovary measures 3.4 x 2.9 x 2.3 cm. The left ovary is normal in size and echotexture. Multiple follicles are noted. Pelvic fluid: none. US/US pelvic and transvaginal IMPRESSION: 1.6 x 1.1 x 1.2 cm right paraovarian cyst. Otherwise unremarkable pelvic ultrasound. Electronically signed by: Tanner Moss MD 01/05/2025 02:56 PM EDT
--- OUTSIDE RECORDS SUMMARY | 2025-01-05 18:06 | XMS_ITS | Encounter Summary ---
Author Organization [facility] Address [address] [place] [address] Phone Care Team Providers Care Anthropology And Archeology Instructor Name Role Phone Tiffanie Caputo NP Primary Care Provider Jane horton Encounter Details Date Type Department Care Team (Late st Contact Info) Description 06/25/2013 Documentation [facility] [place] [address] [place] [address] Family Medicine, Physician [facility] [place] [address] Social History Tobacco Use Types Packs/Day Years [...] on filedocumented in this encounter Care Teams Anthropology And Archeology Instructor Relationship Specialty Start Date End Date Tiffanie Caputo NP PCP - General 10/18/16 06/19/22 documented as of this encounter
--- OUTSIDE RECORDS SUMMARY | 2025-01-05 18:06 | XMS_ITS | Clinical Summary ---
Author Organization [facility] Address [address] [place] [address] Care Team Providers Care Narcotics And Vice Detective Name Role Phone Unavailable Primary Care Provider [...]
--- OUTSIDE RECORDS SUMMARY | 2025-01-05 18:06 | XMS_ITS | Clinical Summary ---
Author Organization [facility] Address [address] [place] [address] Phone Care Team Providers Care Silver Service Waiter Name Role Phone Unavailable Primary Care Provider [...] Other No family histo ry of *[place] /[place] under 55, No family history of ADD/ADHD, [...] HPV Vaccines Completed 04/25/2016, 12/08, 10/17/2015 Insurance [facility] [facility] NON PCC Member Subscriber Plan / Payer (Ef fective 2016-Present) Name:Vi Putnam Relation to Subscriber:Self Name:Vi Putnam Payer ID:Not on file Group ID:Not on file Type:Medicaid Address: [address] COMMERCIAL
--- OUTSIDE RECORDS SUMMARY | 2025-01-05 18:06 | XMS_ITS | Encounter Summary ---
Author Organization [facility] Address [address] [place] [address] Phone Care Team Providers Care Hangar Attendant Name Role Phone Tiffanie Caputo NP Primary Care Provider Jane horton Encounter Details Date Type Department Care Team (Late st Contact Info) Description 06/24/2015 Documentation [facility] Family Medicine [address] [place] [address] Family Medicine, [place] [address] Social History Tobacco Use Types Packs/Day Years [...] on filedocumented in this encounter Care Teams Hangar Attendant Relationship Specialty Start Date End Date Tiffanie Caputo NP PCP - General 10/18/16 06/19/22 documented as of this encounter
--- OUTSIDE RECORDS SUMMARY | 2025-01-05 18:06 | XMS_ITS | Encounter Summary ---
Author Organization [facility] Address [address] [place] [address] Phone Care Team Providers Care Bag Patcher Name Role Phone Tiffanie Caputo NP Primary Care Provider Jane horton Encounter Details Date Type Department Care Team (Late st Contact Info) Description 07/28/2009 Documentation [facility] Family Medicine [address] [place] [address] Family Medicine, Physician [address] [place] [address] Social History Tobacco Use Types Packs/Day Years [...] on filedocumented in this encounter Care Teams Bag Patcher Relationship Specialty Start Date End Date Tiffanie Caputo NP PCP - General 10/18/16 06/19/22 documented as of this encounter
--- OUTSIDE RECORDS SUMMARY | 2025-01-05 18:06 | XMS_ITS | Encounter Summary ---
Author Organization [facility] Address [address] [place] [address] Phone Care Team Providers Care Demand Inspector Name Role Phone Tiffanie Caputo CROWN POUNCER Primary Care Provider Jaen horton Encounter Details Date Type Department Care Team (Late st Contact Info) Description 10/24/2016 Conversion Encounter [facility] - [address] [address] Social History Tobacco Use Types Packs/Day Years [...] on filedocumented in this encounter Care Teams Demand Inspector Relationship Specialty Start Date End Date Tiffanie Caputo NP PCP - General 10/18/16 06/19/22 documented as of this encounter
== END 2025-01-05 14:06 | disposition home or self-care (01) ==
LOC: HO.US 14:05
PROVIDERS: PCP Family Medicine; Visit Provider Advanced Practice Midwife
DX: R10.20 Pelvic and perineal pain unspecified side (principal)
CPT/HCPCS: 76830; 76856

== ENCOUNTER → 2025-01-05 14:08 | Outpatient (BNV) | payer OTHER, MEDICAID, SELFPAY | PROVIDERS: PCP Family Medicine; Visit Provider Radiology Diagnostic Radiology | DX: N83.291 Other ovarian cyst, right side (principal); R10.20 Pelvic and perineal pain unspecified side | CPT/HCPCS: 76830; 76856 ==

== ENCOUNTER 2025-01-20 16:38 | Emergency (ER) | payer OTHER, MEDICAID, SELFPAY ==
--- OUTSIDE RECORDS SUMMARY | 2025-01-19 23:59 | XMS_ITS | Continuity of Care Document ---
Author Organization [facility] Address [address] [place] [address]- Support Name Relationship Address Phone DORETHA XIONGARA Personal Relationship Unknown Isabela vailable TYRESE, MICHAEL Personal Relationship Unknown Un available TAVAREZ, ILITAMMY mother Unknown Unavailable MALDANADO, BRADLEY grandparent Unknown Unavailable TYRESE, MICHAEL Personal Relationship Unknown Un available TYRESE, MICHAEL Personal Relationship Unknown Un available TYRESE, MICHAEL Personal Relationship Unknown Un available TYRESE, MICHAEL Personal Relationship Unknown Un available TAVAREZ, ILIAM Personal Relationship Unknown Isabela vailable TYRESE, MICHAEL Personal Relationship Unknown Un available TYRESE, MICHAEL Personal Relationship Unknown Un available TYRESE, HARSH Personal Relationship Unknown Isabela vailable TYRESE, HARSH Personal Relationship Unknown Isabela vailable NONES, LUX unrelated friend Unknown Unavailabl e TYRESE, HARSH Personal Relationship Unknown Isabela vailable TYRESE, HARSH Personal Relationship Unknown Isabela vailable NADIR KAMARA (STEPFATHER) father Unknown Unavailable TYRESE, MICHAEL Personal Relationship Unknown Un available Care Team Providers Care Blacksmith Assistant Name Role Phone Not on Staff, PCP Primary Care Physician Unavail able [id number] Date(s): 01/12/25 - 01/19/25 [facility] [address] [place] [address]- Attending Physician: Christie ESTRADA, Jacinta Santana Referring Physician: Not on Staff, Referring MD Encounter Type: Office Visit Allergies, Adverse Reactions, Alerts Substance Criticality Severity Reaction Reaction Severity Status Pet Dander Active Other Environmental Allergy Unknown Active Functional Status Functional Status Assessment Assessment Assessment Component Result Effecti ve Date Disability status [CUBS] I'm Thriving - no identified disability 01/12/25 Are you blind, or do you have serious difficulty seeing, even when wearing glasses Yes 01/12/25 Difficulty communica ting in usual language No 01/12/25 Are you deaf, or do you have serious difficulty hearing No 01/12/25 Because of a physica l, mental, or emotional condition, do you have difficulty doing errands alone such as visiting a physician's office or shopping No 01/12/25 Do you have difficul ty dressing or bathing No 01/12/25 Do you need any esthela tional assistance or accommodations during your visit No 01/12/25 Do you have serious difficulty walking or climbing stairs No 01/12/25 Because of a physica l, mental, or emotional condition, do you have serious difficulty concentrating, remembering, or making decisions No 01/12/25 Difficulty Reading O r Writing No 01/12/25 Immunizations Given and Recorded Vaccine Date Status Refusal Reason Human Papillomavirus Vaccine 08/31/20 Recorded Human Papillomavirus Vaccine 04/25/16 Recorded Human Papillomavirus Vaccine 12/22/15 Recorded Human Papillomavirus Vaccine 10/17/15 Recorded Human Papillomavirus Vaccine 01/19/09 Recorded tetanus/diphtheria/pertussis, acel(Tdap) 08/31/20 Recorded tetanus/diphtheria/pertussis, acel(Tdap) 10/17/15 Recorded influenza virus vaccine, inactivated 12/16/18 Buddy rded influenza virus vaccine, inactivated 12/22/15 Buddy rded Meningococcal Conjugate Vaccine 10/17/15 Recorded Hepatitis A Pediatric Vaccine 07/20/13 Recorded Hepatitis A Pediatric Vaccine 07/30/10 Recorded haemophilus b conjugate (PRP-OMP)vaccine 02/24/09 Recorded haemophilus b conjugate (PRP-OMP)vaccine 01/28/06 Recorded haemophilus b conjugate (PRP-OMP)vaccine 02/12/05 Recorded haemophilus b conjugate (PRP-OMP)vaccine 04 Recorded Poliovirus Vaccine, Inactivated 01/19/09 Recorded pneumococcal 13-valent vaccine 01/19/09 Recorded pneumococcal 13-valent vaccine 04/25/05 Recorded pneumococcal 13-valent vaccine 02/12/05 Recorded pneumococcal 13-valent vaccine 04 Recorded Measles/Mumps/Rubella/VaricellaVirusVac 01/19/09 R ecorded diphtheria/tetanus/pertussis, acel(DTaP) 05/19/06 Recorded Measles/Mumps/Rubella Virus Vaccine 10/25/05 Given Varicella Virus Vaccine 10/25/05 Given Diphth/HepB/Pertussis,Acel/Polio/Tet 04/25/05 Buddy rded Diphth/HepB/Pertussis,Acel/Polio/Tet 02/12/05 Buddy rded Diphth/HepB/Pertussis,Acel/Polio/Tet 04 Buddy rded Medications ValACYclovir See Instructions, By Mouth, 0 Refills, Maintenance, 01/12/25 2:24:00 PM EST, Partial fill upon patient request if the prescription is for a schedule II opioid drug. Start Date: 01/12/25 Status: Ordered Medication Dispense Status: Completed Total Allowed Fills: 1 Fills Dispensed: 0 Vital Signs Most recent to oldest [Reference Range]: 1 Height 162.5 cm (01/12/25 2:13 PM) Weight 57.8 kg (01/12/25 2:13 PM) Body Mass Index [18.5-24.99 kg/m2] 21.89 kg/m2 (01/12/25 2:13 PM) Blood Pressure [90-138/55-84 mm Hg] 102/ 62mm Hg (01/12/25 2:13 PM) Blood pressure sites Arm, right (01/12/25 2:13 PM) Weight Obtained Via Standing scale (01/12/25 2:13 PM) Social History Social History Type Response Smoking Status Never (less than 100 in lifetime) entered on: 02/06/18 Sexual Orientation Self described orien tation: ; Straight or heterosexual Sex Sex Representation Female (finding) Note * Gomez Cespedes: PERFORM Event Display: Patient Education/Instruction Authored Date: [id number] Ambulatory Adult Visit Summary [facility] [address] [place] [address] Name: HARSH LAUREN : 2005?? Visit: 01/12/2025 13:40?? Ambulatory Visit Instructions ?? Your Care Team Primary Care Provider Not on Staff, PCP?? This Visit Provider Christie ESTRADA, Jacinta Santana Your Diagnosis Polycystic ovaries Vitals Signs Systolic Blood Pressure: 102 mm Hg Height: 162.5 cm Diastolic Blood Pressure: 62 mm Hg Weight: 57.8 kg ?? Body Mass Index: 21.89 kg/m2 ?? Body surface area: 1.62 What to do next Instructions From Your Provider [email or web address] ?? [email or web address] ? Scheduled Follow-Up Appointments Friday 8:40 AM EST ?? 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 [place] [address]- Status: Pending Medications The list below reflects the information in our records and provided by you today along with any changes made during this visit. Please continue your medications until treatment is completed or stopped by your provider. If this is different from the information you have or there are other questions,please contact the prescribing provider. What How Much When Instructions Unchanged ValACYclovir See instructions Special Instructions: By Mouth ? What How Much When Comments Stop Taking Aripiprazole (ARIPiprazole 5 mg oral tablet) 0.5 tab(s) Oral Daily Stop Taking Fluoxetine (FLUoxetine 10 mg oral capsule) 1 capsule Oral Daily Stop Taking Fluticasone Nasal (Flonase 50 mcg/ inh nasal spray) 1 spray(s) Nares, Both Twice a day Stop Taking HydrOXYzine (hydrOXYzine pamoate 25 mg oral capsule) 1 capsule Oral Twice a day as needed for as needed for anxiety Stop Taking Trazodone (traZODone 50 mg oral tablet) 1 tab(s) Oral Daily at Bedtime Special Instructions: Take 1/ 2 tablet (=25 mg) by mouth daily at bedtime (dose decreased on ) ?? Medications and Immunizations Administered Medications Given During Visit No medications given during this visit.?? Allergies (NKA means No Known Allergies) Other Environmental Allergy??Unknown Pet Dander Common Emergency Awareness Tips IS IT A STROKE? Act FAST and Check for these signs: FACE Does the face look uneven? ARM Does one arm drift down? SPEECH Does their speech sound strange? TIME Call at any sign of stroke ?? Heart Attack Signs Chest discomfort: Most heart attacks involve discomfort in the center of the chest and lasts more than a few minutes, or goes away and comes back. It can feel like uncomfortable pressure, squeezing, fullness or pain. Discomfort in upper body: Symptoms can include pain or discomfort in one or both arms, back, neck, jaw or stomach. Shortness of breath: With or without discomfort. Other signs: Breaking out in a cold sweat, nausea, or lightheaded. Remember, MINUTES DO MATTER. If you experience any of these heart attack warning signs, call to get immediate medical attention! ?? Smoking can increase your chances of developing chronic health problems and can cause harmful effects to other family members in your house. If you smoke, you are strongly encouraged to quit. Please call [facility] [employer] Link at [phone] or [phone] ([phone]) or log in to [email or web address] for referrals to smoking cessation programs. ?? The National Suicide Prevention Hotline is available 30/09 if you or someone you know needs to find a reason to keep living. By calling 9-029-632-[facility] (0751) you'll be connected to a skilled, trained counselor at a crisis center in your area. [facility] [employer] Portal You can view and manage your care through the patient portal or by using a health care joya of your choosing. [employer] is a website that allows you to securely view your medical information including your hospital discharge summary, office visit summaries, medications and follow-up visits. You can also request appointments, renew medications, and request access to your medical information using a health care joya of your choosing, or just ask a question. You can enroll at [email or web address] or register during your next office visit. [facility], in keeping with [facility] guidance, no longer requires face masks for staff, patientsor visitors in most situations. Similiar to time spent indoors at other locations, there is the chance that you were exposed to repiratory viruses during your time with us (such as flu or COVID-19). If you develop symptoms concerning for a viral respiratory infection, please seek testing (and treatment if indicated) from your medical provider or home test kit. ?? Disclaimer: The information provided is of a general nature and is intended to be used in conjunction with the recommendations and advice of your health care practitioner. Every effort has been made to ensure that the information provided is accurate and complete at the time it is provided to you however, as your needs change, or, as new information becomes available, different or additional instructions may be required. ?? If you have questions, please consult with your primary care provider or pharmacist, as appropriate. This information is not intended to serve as substitution for assessment and evaluation by a qualified health care provider. If you do not have a primary care provider, you may find a [facility] provider by calling [facility] [facility] at [phone]. Patient Care team information Care Team Personnel Name: Not on Staff, PCP Position: [facility] Physician (General Medicine) Member Role: PCP Care Team Related Persons Name: NADIR KAMARA (STEPFATHER) Name: GELY TAVAREZ Name: LUX CAMPA Insurance Providers Guarantor name: Health Plan Information #: 1 Payer: [facility] FF NON P HMO P Payer Identifier: Member Number: [id number] Group Number: [id number] Subscriber Identifier: [id number] Relationship to Subscriber: self Coverage Type: Other Private Insurance Coverage Verification Date: Telecom: Address: [facility] Information #: 2 Payer: [facility] [employer] Payer Identifier: Member Number: [id number] Group Number: Subscriber Identifier: [id number] Relationship to Subscriber: self Coverage Type: MEDICAID Coverage Verification Date: Telecom: Address:
--- NOTE | 2025-01-20 16:41 | ECG_ITS ---
Test Reason : l arm numbness/tingling Blood Pressure : */* mmHG Vent. Rate : 90 BPM Atrial Rate : 90 BPM P-R Int : 128 ms QRS Dur : 68 ms QT Int : 354 ms P-R-T Axes : 46 77 34 degrees QTcB Int : 433 ms Normal sinus rhythm with sinus arrhythmia Nonspecific T wave abnormality Abnormal ECG When compared with ECG of 20-Apr-2019 19:43, No significant changes seen Referred By: Rubens Waters Electronically Signed By: AMISHA MULLINS MD
[2025-01-20 16:52] VITALS: BP 123/82; PULSE 98; RESP 16; TEMP 36.7; O2SAT 98; BMI 20.6
--- NOTE | 2025-01-20 16:56 | ED.NEUROSD ---
HPI - Neuro Symptoms/Deficit General Chief Complaint: Neuro Symptoms/Deficit Stated Complaint: General Medical Time Seen by Provider: 01/20/25 20:16 Source: patient Limitations: no limitations History of Present Illness ED Provider: Heaven Bridges PA-C HPI Narrative: 19-year-old female who is otherwise healthy presents with ongoing neck and left upper extremity pain since September. Pain originates in left lateral neck, radiates into left upper extremity, she experiences numbness and tingling at times. Patient has been seen by her primary care provider, she is pending an outpatient MRI. Patient denies trauma, excessive exercise or repetitive activity that could have precipitated the onset of her symptoms. Denies headache, dizziness, chest pain, nausea vomiting. Related Data Home Medications ?Medication ?Instructions ?Recorded ?Confirmed azithromycin 250 mg tablet 250 mg PO DIRECTED 12/17/23 Previous Rx's ?Medication ?Instructions ?Recorded ondansetron HCl 4 mg tablet 4 mg PO Q8H PRN nausea and 03/16/23 vomiting 4 days #14 tabs doxycycline hyclate 100 mg tablet 100 mg PO BID #28 tabs 04/26/24 doxycycline hyclate 100 mg tablet 100 mg PO BID #28 tabs 07/23/24 ketorolac 10 mg tablet 10 mg PO Q6H PRN pain #20 tabs 01/20/25 methocarbamol 750 mg tablet 750 mg PO Q8H PRN pain, moderate 01/20/25 #10 tabs prednisone 20 mg tablet 40 mg (2 x 20 mg) PO DAILY #8 tabs 01/20/25 Allergies Allergy/AdvReac Type Severity Reaction Status Date / Time No Known Allergies Allergy Verified 01/20/25 16:56 Review of Systems Review of Systems: Yes all other systems are reviewed and are negative Constitutional: Constitutional: Denies fatigue, Denies fever(s) and Denies headache(s) ENT: Denies dizziness, Denies headache(s) and Reports neck pain Cardiovascular: Cardiovascular: Denies chest pain and Denies dyspnea Respiratory: Respiratory: Denies dyspnea Gastrointestinal: Gastrointestinal: Denies nausea and Denies vomiting Musculoskeletal: Musculoskeletal: Denies back pain, Reports neck pain, Reports numbness, Reports radiating pain into limb and Reports tingling Neurologic: Denies dizziness, Denies headache(s), Reports numbness and Reports tingling Endocrine: Endocrine: Denies fatigue PMFSH Past Medical History Attestation statement: The following information was validated with the patient. Medical History No known health problems Social History Social History Alcohol intake: never Patient Tobacco Use Status: Current someday Tobacco user Substance Use Type: Marijuana Advance Directives: No Advance Directives Information Provided: No Physical Exam Vital Signs: Vital Signs: Last Vital Signs Temp 98.4 F 01/20/25 21:12 Pulse 88 01/20/25 21:12 Resp 16 01/20/25 21:12 BP 105/68 01/20/25 21:12 Pulse Ox 96 01/20/25 21:12 O2 Del Method Room Air 01/20/25 21:12 BMI result Body Mass Index 20.6 Const: Other: Alert well- appearing Orientation/consciousness: patient oriented x3 Neck: Neck: Yes full ROM Resp: Effort & Inspection: normal respiratory effort Cardio: Other: normal peripheral perfusion Skin: Other: warm dry no rash Neuro: General: patient oriented x3, gait normal, no focal motor deficits and CN's II-XI intact bilaterally Extrem: Other: strength 5/5 bilateral upper extremities Psych: Other: cooperative Course Course Course Narrative: RME: 19-year-old female presents to ED for left side of neck numbness left arm numbness left rib back pain started today at work. Patient denies any trauma. Physical exam negative for any neuro deficits. NIH score is 0. Labs EKG ordered. Medications Administered Discontinued Medications Generic Name Dose Route Start Last Admin Trade Name Bertinq PRN Reason Stop Dose Admin Ketorolac Tromethamine 15 mg 01/20/25 20:50 01/20/25 21:05 Ketorolac Tromethamine 15 Mg/Ml Vial IM 01/20/25 20:51 15 mg ONCE ONE Administration Methocarbamol 750 mg 01/20/25 20:50 01/20/25 21:06 Methocarbamol 750 Mg Tablet PO 01/20/25 20:51 750 mg ONCE ONE Administration Prednisone 40 mg 01/20/25 20:50 01/20/25 21:06 Prednisone 20 Mg Tablet PO 01/20/25 20:51 40 mg ONCE ONE Administration Medical Decision Making Medical Decision Making [facility] Narrative: 19-year-old female who is otherwise healthy presents with ongoing neck and left upper extremity pain since September. Pain originates in left lateral neck, radiates into left upper extremity, she experiences numbness and tingling at times. Patient has been seen by her primary care provider, she is pending an outpatient MRI. Patient denies trauma, excessive exercise or repetitive activity that could have precipitated the onset of her symptoms. Denies headache, dizziness, chest pain, nausea vomiting. no chronic issues History: Per patient I have considered the following differential diagnoses: Cervical radiculopathy, cervical strain, ACS, VAD Plan: ACS was considered, her presentation is clearly not consistent with a ACS, she has no risk factors for vascular disease, her heart score is 0. Screening labs, troponin EKG obtained. The patient is having radicular symptoms, she has an MRI pending which is appropriate. She really should be attending physical therapy. We will treat accordingly. Thought about VAD, however the patient has had symptoms since September, she is neurologically intact, no indication for angiograms today. I have independently reviewed the following tests: Labs: no leukocytosis, not anemic, no electrolyte abnormality, troponin less than 2.7, CPK 325 EKG: Normal sinus rhythm with sinus arrhythmia, rate of 90, nonspecific T-wave abnormality no active ischemic changes, QTC 433 Differential Diagnosis Differential Diagnoses: The differential diagnosis associated with the presentation includes See [facility] Admission/Observation Consideration of admission/observation: Escalation of care including admission/observation considered not applicable Lab Data [facility] Lab Attestation statement: I reviewed the patient's lab results. 01/20/25 17:01 01/20/25 17:01 Labs: Lab Results 01/20/25 Range/Units 17:01 WBC 10.5 (4.8-10.8) X10*3/uL RBC 4.24 (4.20-5.50) X10*6/uL Hgb 12.9 (12.0-16.0) g/dl Hct 38.0 (37.0-47.0) % MCV 89.6 (80.0-98.0) fL MCH 30.4 (27.0-33.0) pg MCHC 33.9 (31.0-35.0) g/dl RDW 12.1 (11.0-16.0) % Plt Count 295 (160-400) X10*3/uL MPV 8.9 L (9.4-12.3) fL Immature Gran % (Auto) 0.5 H (0.0-0.4) % Neut % (Auto) 80.7 H (45-73) % Lymph % (Auto) 12.1 L (20-40) % [place] % (Auto) 5.5 (2-11) % Eos % (Auto) 0.6 (0-4) % Baso % (Auto) 0.6 (0-2) % Lymph # (Auto) 1.3 (1.2-4.9) X10*3/uL [place] # (Auto) 0.6 (0.1-1.2) X10*3/uL Eos # (Auto) 0.1 (0.0-0.4) X10*3/uL Baso # (Auto) 0.1 (0.0-0.2) X10*3/uL Abs Immat Gran (auto) 0.05 H (0.00-0.03) X10*3/uL Absolute Neuts (auto) 8.5 H (2.0-8.3) x10*3/uL Absolute Nucleated RBC 0.000 (0.0-0.012) X10*3/uL Nucleated RBC % (auto) 0.0 (0.0-0.2) /100WBC PT 14.5 H (11.2-13.5) SEC INR 1.2 H (0.9-1.1) APTT 25.8 L (26.7-34.1) SEC Sodium 141 (135-145) mmol/L Potassium 4.0 (3.3-5.1) mmol/L Chloride 105 (96-108) mmol/L Carbon Dioxide 27 (22-29) mmol/L Anion Gap 13 (12-20) BUN 7 L (9-16) mg/dL Creatinine 0.64 (0.5-1.4) mg/dL Estim Creat Clear Calc 120.4 Estimated GFR > 60 Random Glucose 104 (60-115) mg/dL Calcium 9.6 (8.4-10.2) mg/dL Magnesium 2.1 (1.6-2.6) mg/dL Total Bilirubin 0.6 (0.0-1.0) mg/dL AST 23 (5-31) U/L ALT 14 (0-31) U/L Alkaline Phosphatase 69 (39-117) U/L Total Creatine Kinase 325 H (26-140) U/L Troponin I High Sens < 2.7 (<3.5-17.0) ng/L Total Protein 7.9 (6.5-8.0) g/dL Albumin 4.5 (3.5-5.0) g/dL Independent Interpretation I performed an independent interpretation of an: EKG Discharge Plan Discharge Clinical Impression: Left cervical radiculopathy Patient Disposition: Home, Self-Care Instructions: Cervical Radiculopathy (ED) Additional Instructions: all of your screening labs including a cardiac enzymes were normal. We obtained an EKG, no acute finding. Your symptoms are consistent with a pinched nerve in your neck. See home care instructions. Take the prednisone as directed take it in the morning. Take the ketorolac as directed, take it with food. Use the methocarbamol as needed, this is a muscle relaxant, it will cause drowsiness, do not drive or operate machinery while taking the medication. Keep your pending follow up with your primary care and for your scheduled MRI. You really need to discuss the need for physical therapy with your primary care provider, they can help organise this for you. Prescriptions: New prednisone 20 mg tablet 40 mg PO DAILY Qty: 8 0RF ketorolac 10 mg tablet 10 mg PO Q6H PRN (Reason: pain) Qty: 20 0RF Rx Instructions: maximum total duration of 5 days from all oral, intranasal, or parenteral formulations, The patient received an intramuscular dose of Toradol here in the emergency room methocarbamol 750 mg tablet 750 mg PO Q8H PRN (Reason: pain, moderate) Qty: 10 0RF No Action doxycycline hyclate 100 mg tablet 100 mg PO BID Qty: 28 0RF ondansetron HCl 4 mg tablet 4 mg PO Q8H PRN (Reason: nausea and vomiting) 4 Days Qty: 14 0RF doxycycline hyclate 100 mg tablet 100 mg PO BID Qty: 28 0RF azithromycin 250 mg tablet 250 mg PO DIRECTED Interventions: ED Discharge Assessment Last Done: 01/20/25 21:12 Discharge Date/Time: 01/20/25 21:12 Print Language: Faroese
[2025-01-20 17:06] LABS: MANUAL DIFF FLAG NO
[2025-01-20 17:12] LABS: Hematocrit 38.0 % (37.0-47.0); Hemoglobin 12.9 g/dl (12.0-16.0); Imm Gran Abs Auto 0.05 X10*3/uL (0.00-0.03); Imm Gran Pct Auto 0.5 % (0.0-0.4); Lymphocytes Absolute Auto 1.3 X10*3/uL (1.2-4.9); Mean Corpuscular HGB Conc 33.9 g/dl (31.0-35.0); Mean Corpuscular Hemoglobin 30.4 pg (27.0-33.0); Mean Corpuscular Volume 89.6 fL (80.0-98.0); NRBC Abs Auto 0.000 X10*3/uL (0.0-0.012); NRBC Pct Auto 0.0 /100WBC (0.0-0.2); Platelet Count 295 X10*3/uL (160-400); Red Blood Count 4.24 X10*6/uL (4.20-5.50); White Blood Count 10.5 X10*3/uL (4.8-10.8)
[2025-01-20 17:24] LABS: INTERNATIONAL NORM RATIO 1.2 (0.9-1.1); Prothrombin Time 14.5 SEC (11.2-13.5)
[2025-01-20 17:25] LABS: Alanine Aminotransferase 14 U/L (0-31); Albumin Level 4.5 g/dL (3.5-5.0); Alkaline Phosphatase 69 U/L (39-117); Anion Gap 13 (12-20); Aspartate Amino Transferase 23 U/L (5-31); Blood Urea Nitrogen 7 mg/dL (9-16); Calcium 9.6 mg/dL (8.4-10.2); Carbon Dioxide 27 mmol/L (22-29); Chloride 105 mmol/L (96-108); Creatinine Clr Calc Pharmacy 120.4; Estimated Glomerular Filt Rate > 60; Magnesium 2.1 mg/dL (1.6-2.6); Potassium 4.0 mmol/L (3.3-5.1); Sodium 141 mmol/L (135-145); Total Protein 7.9 g/dL (6.5-8.0)
[2025-01-20 17:27] LABS: Partial Thromboplastin Time 25.8 SEC (26.7-34.1)
[2025-01-20 17:33] LABS: Troponin-I High Sensitivity < 2.7 ng/L (<3.5-17.0)
[2025-01-20 18:22] VITALS: BP 105/68; PULSE 88; RESP 16; TEMP 36.9; O2SAT 96
--- OUTSIDE RECORDS SUMMARY | 2025-01-20 19:01 | XMS_ITS | Encounter Summary ---
Author Organization [employer] Address [address] [place] [address] Care Team Providers Care Road Maker Name Role Phone Marilia Castillo MD Primary Care Provider Encounter Details Date Type Department Care Team ([facility] st Contact Info) Description 03/29/2023 Orders Only [facility] [address], [place] [phone] Marilia Castillo MD [address] [place], [place] [phone] Irregular menstruation (Primary Dx) Social History Tobacco [...] EST) Lipase 30 8 - 78 U/L [facility] 05/16/2023 5:03 AM EST 05/16/2023 5:07 AM EST us Generic External Data Provider LAB BLOOD ORDERAB LES Final Result [facility] [address] [place] [address] [phone] * Hepatic Function Panel (05/16/2023 5:03 AM EST) Bilirubin, Total 0.4 0.0 - 1.0 mg/dL [facility] Bilirubin, Direct 0.1 0.0 - 0.5 mg/dL [facility] Aspartate Amino Transferase 20 5 - 31 U/L [facility] Alanine Aminotransferase 18 0 - 31 U/L [facility] Total Protein 7.1 6.5 - 8.0 g/dL [facility] Albumin Level 4.0 3.5 - 5.0 g/dL [facility] Alkaline Phosphatase 87 39 - 117 U/L [facility] 05/16/2023 5:03 AM EST 05/16/2023 5:07 AM EST Generic External Data Provider LAB BLOOD ORDERAB LES Final Result Performing Organization Address [facility] Co de Phone Number [facility] [address] [place] [address] [phone] * (ABNORMAL) Basic Metabolic Panel (05/16/2023 5:03 AM EST) [facility] Sodium 141 135 - 145 mmol/L [facility] Potassium 3.9 3.3 - 5.1 mmol/L [facility] Chloride 105 96 - 108 mmol/L [facility] Carbon Dioxide 29 22 - 29 mmol/L [facility] Anion Gap 11(L) 12 - 20 [facility] Urea Nitrogen (BUN) 14 9 - 16 mg/dL [facility] Creatinine, Serum 0.67 0.5 - 1.4 mg/dL [facility] Creatinine Clr Calc Pharmacy TNP [facility] Comment:Cannot be calculated ; patient is less than 19 years old. Estimated Glomerular Filt Rate >60 [facility] Comment:NOTE: For -Am erican individuals, multiply the result by 1.210.Chronic Kidney Disease: Estimated GFR < 60 mL/min/1.11p6Ulzvvy Kidney Disease: Estimated GFR < 15 mL/min/1.73m2 Glucose 88 60 - 115 mg/dL [facility] Calcium 9.3 8.4 - 10.2 mg/dL [facility] 05/16/2023 5:03 AM EST 05/16/2023 5:07 AM EST Generic External Data Provider LAB BLOOD ORDERAB LES Final Result Performing Organization Address City/[facility]/ZIP Co de Phone Number [facility] [address] [place] [phone] * HCG, Qualitative, Urine (05/16/2023 5:03 AM EST) Urine NEGATIVE NEGATIVE [facility] Comment:This test was develo ped to detect early . Falsenegative results may occur after the 5th - 7th week ofpregnancy when using this test method. If clinicallyindicated, consider a serum hCG. 05/16/2023 5:03 AM EST 05/16/2023 5:07 AM EST us Generic External Data Provider LAB URINE ORDERAB LES Final Result Performing Organization Address City/[facility]/ZIP Co de Phone Number [facility] [address] [place] [address] [phone] * Urinalysis w/reflex microscopic (05/16/2023 5:03 AM EST) Color Urine Yellow [facility] Appearance Urine Turbid [facility] PH 8.5 5.0 - 9.0 [facility] Glucose Urine UA Negative Negative mg/dL [facility] Urine Blood Negative Negative [facility] Specific Porter - Urine 1.020 1.005 - 1.025 [facility] Urine Protein Negative Neg-Trace mg/dL [facility] Urine Ketones Negative Negative mg/dL [facility] Nitrite Urine Negative Negative [facility] Leukocyte Esterase Urine Negative Negative [facility] 05/16/2023 5:03 AM EST 05/16/2023 5:07 AM EST Narrative [facility] - 05/16/2023 5:12 AM EST [id number], Clean Catch us Generic External Data Provider LAB URINE ORDERAB LES Final Result [facility] [address] [place] [phone] * (ABNORMAL) CBC auto differential (05/16/2023 5:03 AM EST) White Blood Count 10.9(H) 4.8 - 10.8 X10*3/uL [facility] Red Blood Count 4.46 4.20 - 5.50 X10*6/uL [facility] Hemoglobin 13.1 12.0 - 16.0 g/dl [facility] Hematocrit 39.0 37.0 - 47.0 % [facility] Mean Corpuscular Volume 87.4 80.0 - 98.0 fL [facility] Mean Corpuscular Hemoglobin 29.4 27.0 - 33.0 pg [facility] Mean Corpuscular HGB Conc 33.6 31.0 - 35.0 g/dl [facility] Red Cell Distribution Width 12.1 11.0 - 16.0 % [facility] Platelet Count 277 160 - 400 X10*3/uL [facility] Mean Platelet Volume 8.9(L) 9.4 - 12.3 fL [facility] Neutrophils Percent Auto 60.6 45 - 73 % [facility] Imm Gran Pct Auto 0.2 0.0 - 0.4 % [facility] Lymphocytes Percent Auto 29.1 20 - 40 % [facility] Monocytes Percent Auto 7.9 2 - 11 % [facility] Eosinophils Percent Auto 1.8 0 - 4 % [facility] Basophils Percent Auto 0.4 0 - 2 % [facility] NRBC Pct Auto 0.0 0.0 - 0.2 /100WBC [facility] Neutrophils Absolute Auto 6.6 2.0 - 8.3 x10*3/uL [facility] Imm Gran Abs Auto 0.02 0.00 - 0.03 X10*3/uL [facility] Lymphocytes Absolute Auto 3.2 1.2 - 4.9 X10*3/uL [facility] Monocytes Absolute Auto 0.9 0.1 - 1.2 X10*3/uL [facility] Eosinophils Absolute Auto 0.2 0.0 - 0.4 X10*3/uL [facility] Basophils Absolute Auto 0.0 0.0 - 0.2 X10*3/uL [facility] NRBC Abs Auto 0.000 0.0 - 0.012 X10*3/uL [facility] 05/16/2023 5:03 AM EST 05/16/2023 5:07 AM EST us Generic External Data Provider LAB BLOOD ORDERAB LES Final Result Performing Organization Address City/State/[facility] Co de Phone Number [facility] [address] [place] [phone] * US Pelvis Transvaginal (04/24/2023 12:01 PM EST) Anatomical Region Laterality Modality Pelvis Ultrasound 04/24/2023 12:0 1 PM EST Narrative 04/25/2023 1:02 PM EST [address] [address] Ultrasound Report Signed Patient: Vi Garner MR# : [id number] : 2005 Acct:[id number] Age/Sex: 17 / F ADM Date: 04/24/23 Loc: HO.US Attending Dr: Marilia Castillo MD Ordering Physician: Marilia Castillo MD Date of Service: 04/24/23 Procedure(s): US pelvic and transvaginal Accession Number(s): [id number] cc: Marilia Castillo MD EXAMINATION: US PELVIS [...] in OV> 04/25/23 1258 DD/ 1201 TD/TT: Continuity Coordinator: POONAM Procedure Note Donotuseinterpreter, Image - 04/25/2023 [place] [id number] Ultrasound Report Signed Patient: Vi Garner [facility]# : [id number] : 2005Acct:[id number] Age/Sex: 17 / FADM Date: 04/24/23 Loc: . Attending Dr: Marilia Castillo MD Ordering Physician: Marilia Castillo MD Date of Service: 04/24/23 Procedure(s): US pelvic and transvaginal Accession Number(s): [id number] cc: Marilia Castillo MD EXAMINATION: US PELVIS [...] in OV> 04/25/23 1258 DD/ 1201 TD/TT: Continuity Coordinator: POONAM us Marilia Castillo MD IMG US PROCEDURES Edited Result - Final documented in this encounter Visit Diagnoses Diagnosis Irregular menstruation- Primary Irregular menstrual cycle documented in this encounter Additional Health Concerns Assessment Noted Time PHQ-9 Depression Total Score: 0 03/27/19 9:28 AM EST documented as of this encounter Care Teams Road Maker Relationship Specialty Start Date End Date Marilia Castillo MD [address] [place] [phone] PCP - General Family Medicine 03/27/23 documented as of this encounter
--- OUTSIDE RECORDS SUMMARY | 2025-01-20 19:01 | XMS_ITS | Clinical Summary ---
Author Organization [employer] Address [address] [facility] [address] [place] [address] Care Team Providers Care Manipulative Therapy Specialist Name Role Phone Marilia Castillo MD Primary Care Provider [phone] Allergies Active Allergy Reactions Criticality Noted Date Comments Other 12/04/2016 Cat dander, dog dander, feathers, mold, ragweed, and rabbits Medications triamcinolone (Kenalog) 0.1 % creamIndication s:Insect bite of ankle, unspecified laterality, initial encounter Apply to affected area BID till improved. 30 g 07/24/19 24 025 Discontinued(Me d list cleanup (will not trigger notification to Pharmacy)) valACYclovir (Valtrex) 1 g tablet TAKE 2 TABLETS BY MOUTH TWICE A DAY FOR 1 DAY AT EARLIEST SIGNS AND SYMPTOMS OF ONSET 12 tablet 1 09/16/19 25 025 Discontinued(Me d list cleanup (will not trigger notification to Pharmacy)) ibuprofen 400 MG tabletIndicatio ns:Nonintractab le headache, unspecified chronicity pattern, unspecified headache type 1 tab TID for a week, then q 6 hours prn pain or fever. 30 tablet 1 11/24/19 25 025 Discontinued(Me d list cleanup (will not trigger notification to Pharmacy)) Active Problems Problem Noted Date Diagnosed Date Headache 01/07/2025 Assessment & Plan (01/07/2025 10:51 AM EDT): - In the setting of fluctuating pituitary hormone, visual change, dizziness, and paresthesia of arm - Evaluate with head and cervical MRI Elevated prolactin level 01/07/2025 Assessment & Plan (01/07/2025 10:36 AM EDT): - most recent level was normal - fluctuating pituitary hormone level - will evaluate with head MRI Vaginal discharge 01/07/2025 Assessment & Plan (01/07/2025 10:39 AM EDT): - negative BV, yeast, and STI, including mycoplasma - normal pelvic US - patient is still bothered by this symptom; consider evaluation by POWER SYSTEMS ENGINEER Chronic pelvic pain in female 01/07/2025 Assessment & Plan (01/07/2025 10:50 AM EDT): - Possible endometriosis - 01/05/2025 pelvic ultrasound showed right paraovarian cyst, otherwise unremarkable - Consider referring her to POWER SYSTEMS ENGINEER for further evaluation and management Chronic abdominal pain 01/07/2025 Assessment & Plan (01/07/2025 10:49 AM EDT): - 05/16/[address] (done in [facility]) no acute intra-abdominal proess; moderate constipation - Abdominal ultrasound on 11/04/2024: No hydronephrosis; normal-sized spleen. - Pelvic ultrasound on 01/05/2025 righ paraovarian cyst, otherwise normal - Possible endometriosis; consider referral to filter changer for further evaluation and management Paresthesia of left arm 01/07/2025 Neck pain on left side 01/07/2025 Elevated testosterone level in female 12/01/2024 Overview (12/01/2024): 80 Assessment & Plan (01/07/2025 10:36 AM EDT): - most recent level was normal - fluctuating pituitary hormone lab - will evaluate with head MRI Herpes virus infection of oral mucosa 07/02/2023 [...] suppressive medication. Fatigue 03/28/2023 Assessment & Plan (01/07/2025 10:53 AM EDT): - Recently had positive Monospot. EBV antigen/antibody was not tested. No elevation of liver enzyme or hepatosplenomegaly - patient is still symptomatic - Possible endometriosis Assessment & Plan (07/02/2023 9:50 AM EDT): [...] clinic Irregular menstruation 03/28/2023 Assessment & Plan (01/07/2025 10:37 AM EDT): - she is not overweight, but possible PCOS - Most recent Pelvic US on 01/05/2025 showed right paraovarian cyst, otherwise normal - she was seen in Derm clinic, and started on OCP. Patient self-discontinued OCP. Assessment & Plan (07/02/2023 10:30 AM EDT): [...] Encounters Date Type Department Care Team Description 01/10/[address] [address] Marilia Castillo MD Results 01/06/2025 10:15 AM EDT Office Visit [address] [address] Marilia Castillo MD Elevated testosterone level in female (Primary Dx); Elevated prolactin level; Other headache syndrome; Irregular menstruation; Vaginal discharge; Chronic pelvic pain in female; Chronic abdominal pain; Fatigue, unspecified type; Paresthesia of left arm; Neck pain on left side; Photosensitivity; Routine screening for STI (sexually transmitted infection) 01/06/2025 Travel 01/05/[address] [address] Marilia Castillo MD chart prep 12/29/2024 Patient Outreach [address] [address] Marilia Castillo MD Pre-visit Planning (SDOH Screening negative and Tobacco screening negative) 12/20/[address] [address] Marilia Castillo MD No Show 12/17/[address] [address] Marilia Castillo MD chartprep 12/15/2024 Travel 12/15/2024 Results Follow-Up [address] [address] Serjio Bauer CNM Mycoplasma/Ureaplasma Panel 12/14/2024 Results Follow-Up [address] [address] Serjio Bauer CNM Testosterone, Total, males (Adult), IA, POCT , urine manually resulted, US Pelvis Transvaginal 12/13/[address] [address] Marilia Castillo MD Change PCP 12/09/2024 9:30 AM EDT Office Visit [address] [address] Serjio Bauer CNM Irregular menstruation (Primary Dx); Pelvic pain; Vaginal discharge 12/09/2024 Orders Only [address] [address] Serjio Bauer CNM 12/09/2024 Travel 12/08/2024 Telephone [facility] [address] [place], [place] [phone] Marilia Castillo MD 12/08/[address] [address] Marilia Castillo MD Referral 12/08/[address] [address] Marilia Castillo MD Lab Orders 11/23/2024 3:20 PM EDT Office Visit [facility] [address] [place] [phone] Amarjit Echevarria MD Nonintractable headache, unspecified chronicity pattern, unspecified headache type (Primary Dx); Fatigue, unspecified type; Irregular menstruation; Arm numbness; Anxiety 11/23/2024 Travel 11/22/[address] [phone] Marilia Castillo MD Nurse Triage 11/10/[address] [phone] Marilia Castillo MD Stable Lab Letter 11/10/2024 Results Follow-Up [address] [phone] Pinky Bueno MD US Abdomen Limited from Last 3 Months Immunizations Immunization Administration [...] unspecified 10/17/2015 Meningococcal MCV4P ACYW-135 10/17/2015 Novel [id number], all formulations 02/24/2009,01/19/2009 Pneumococcal Conjugate PCV 13 [...] housing situation today? I have radha fatima 12/29/[address] you li ve. Do you have problems with any of the following? None of the above 12/29/2024 Food Insecurity Answer Date Recorded Within the past 12 months, y ou worried that your food would run out before you got money to buy more: Never True 12/29/2024 Within the past 12 months,th e food you bought just didn't last and you didn't have enough money to get more: Never True Transportation Answer Date Recorded In the past 12 months, has l ack of transportation kept you from medical appts, meetings, work or from getting things needed for daily living? No 12/29/2024 Utilities Answer Date Recorded In the past 12 months, has t he electric, gas, oil or water company threatened to shut off services in your home? No 12/29/2024 Depression Answer Date Recorded Patient Health Questionnaire-2 Score 0 09/13/2024 Internet Access Answer Date Recorded Internet Access Q1 Yes 12/29/2024 Internet Access Q2 Not on file 12/29/2024 Comments No Intention Date Recorded No desire to become (finding) 1 Sex and Gender Information Value Date Recorded Sex Assigned at Female 12/05/2022 1:28 PM EDT Legal Sex Female 1:24 PM EDT Gender Identity Female 12/05/2022 1:28 PM EDT Sexual Orientation Don't know 01/01/2023 2: 23 PM EDT Last Filed Vital Signs Vital Sign Reading Time Taken Comments Blood Pressure 90/60 01/06/2025 10:29 AM EDT Pulse 82 01/06/2025 10:29 AM EDT Temperature 36 C (96.8 F) 01/06/2025 10:29 AM EDT Respiratory Rate 12 01/06/2025 10:29 AM EDT Oxygen Saturation 97% 01/06/2025 10:29 AM EDT Inhaled Oxygen Concentration - - Weight 57.7 kg (127 lb 3.2 oz) 01/06/2025 10:29 AM EDT Height 162.6 cm (5' 4 ) 01/06/2025 10:29 AM EDT Body Mass Index 21.83 01/06/2025 10:29 AM EDT Plan of Treatment Health Maintenance Due Date Last Done Comments Meningococcal B Vaccine (1 of 2 - Standard) 2020 COVID-19 Vaccine ( - season) 2024 Influenza Vaccine (#1) 2024 9, 12/16/2018, 12/22/2015, Additional history exists Alcohol/Substance Use Screening 09/13/2025 09/13/2024 Depression Screening 09/13/2025 09/13/2024, 09/14/19 Chlamydia and Gonorrhea Screening 10/02/2025 10/02/2024, 09/13/2024, 07/23/2024, Additional history exists Family Planning (PISQ) 12/09/2025 12/09/2024 Disability Screening 12/15/2025 12/15/2024 SDOH Screening 12/29/2025 12/29/2024 Tobacco Screening 01/07/2026 01/07/2025 DTaP/Tdap/Td Vaccines (8 - Td or Tdap) [...] Name Priority Date/Time Associated Diagnosis Comments US PELVIS TRANSVAGINAL Urgent 01/05/2025 2:34 PM EDT Pelvic pain MYCOPLASMA/UREAPLASMA PANEL Routine 12/09/2024 10:30 AM EDT TESTOSTERONE, TOTAL, MALES (ADULT), IA Routine 12/09/2024 10:23 AM EDT Irregular menstruation POCT , URINE Routine 12/09/2024 9:55 AM [...] LIMITED Routine 11/04/2024 10 :40 AM EDT CHLAMYDIA/N. GONORRHOEAE RNA, TMA, UROGENITAL Routine 10/02/2024 12:56 PM EDT Acute vaginitis HEPATITIS C AB W/REFL TO HCV RNA, QN, PCR Routine 03/27/2023 10:37 AM EST Routine screening for STI (sexually transmitted infection) HIV 1/2 ANTIGEN/ANTIBODY, FOURTH GENERATION W/RFL Routine 03/27/2023 10:37 AM EST Routine screening for STI (sexually transmitted infection) from Last 3 Months or Most Recently Relevant to Health Maintenance Results * US Pelvis Transvaginal (01/05/2025 2:34 PM EDT) Anatomical Region Laterality Modality Pelvis Ultrasound 01/05/2025 2:34 PM EDT Narrative 01/05/2025 2:59 PM EDT [place] [address] Ultrasound Report Signed Patient: Vi Garner MR# : [id number] : 2005 Acct:[id number] Age/Sex: 19 / F ADM Date: 01/05/25 Loc: HO.US Attending Dr: Serjio Bauer CNM Ordering Physician: SERJIO BAUER CNM Date of Service: 01/05/25 Procedure(s): US pelvic and transvaginal Accession Number(s): [id number] cc: SERJIO BAUER CNM; Marilia Castillo MD Reason for Exam: pelvic pain, elevated testosterone EXAMINATION: US PELVIS TRANSABDOMINAL AND TRANSVAGINAL HISTORY: pelvic pain, elevated testosterone COMPARISON: Comparison is made with the prior examination dated 07/23/2024. TECHNIQUE: Transabdominal and endovaginal real-time 2D cooper-scale ultrasound was performed. FINDINGS: Uterus: The uterus is normal in size, measuring 7.1 x 3.2 x 3.9 cm. Myometrium has a normal echotexture. No fibroids are identified. Endometrium: The endometrial stripe measures 6 mm in thickness. Right ovary: The right ovary measures 4.4 x 1.8 x 3.8 cm. The right ovary is normal in size and echotexture. Multiple follicles are noted. There is a 1.6 x 1.1 x 1.2 cm right paraovarian cyst. Left ovary: The left ovary measures 3.4 x 2.9 x 2.3 cm. The left ovary is normal in size and echotexture. Multiple follicles are noted. Pelvic fluid: none. US/US pelvic and transvaginal IMPRESSION: 1.6 x 1.1 x 1.2 cm right paraovarian cyst. Otherwise unremarkable pelvic ultrasound. Electronically signed by: Tanner Moss MD 01/05/2025 02:56 PM EDT RP Dictated By: Tanner Moss MD Signed By: <Electronically signed by Tanner Moss MD in OV> 01/05/25 1456 DD/ 1434 TD/TT: 01/05/25 1443 Shop Superintendent: Procedure Note Donotuseinterpreter, Image - 01/05/2025 [place] [address] Ultrasound Report Signed Patient: Vi Garner [facility]# : [id number] : 2005Acct:[id number] Age/Sex: 19 / FADM Date: 01/05/25 Loc: HO.US Attending Dr: Serjio Bauer CNM Ordering Physician: SERJIO BAUER CNM Date of Service: 01/05/25 Procedure(s): US pelvic and transvaginal Accession Number(s): [id number] cc: SERJIO BAUER CNM; Marilia Castillo MD Reason for Exam: pelvic pain, elevated testosterone EXAMINATION: US PELVIS TRANSABDOMINAL AND TRANSVAGINAL HISTORY: pelvic pain, elevated testosterone COMPARISON: Comparison is made with the prior examination dated 07/23/2024. TECHNIQUE: Transabdominal and endovaginal real-time 2D cooper-scale ultrasound was performed. FINDINGS: Uterus: The uterus is normal in size, measuring 7.1 x 3.2 x 3.9 cm. Myometrium has a normal echotexture. No fibroids are identified. Endometrium: The endometrial stripe measures 6 mm in thickness. Right ovary: The right ovary measures 4.4 x 1.8 x 3.8 cm. The right ovary is normal in size and echotexture. Multiple follicles are noted. There is a 1.6 x 1.1 x 1.2 cm right paraovarian cyst. Left ovary: The left ovary measures 3.4 x 2.9 x 2.3 cm. The left ovary is normal in size and echotexture. Multiple follicles are noted. Pelvic fluid: none. US/US pelvic and transvaginal IMPRESSION: 1.6 x 1.1 x 1.2 cm right paraovarian cyst. Otherwise unremarkable pelvic ultrasound. Electronically signed by: Tanner Moss MD 01/05/2025 02:56 PM EDT RP Dictated By: Tanner Moss MD Signed By: <Electronically signed by Tanner Moss MD in OV> 01/05/25 1456 DD/ 1434 TD/TT: 01/05/25 1443 Shop Superintendent: us Serjio Bauer CN IMG US PROCEDURES Final R esult * Mycoplasma/Ureaplasma??Panel (12/09/2024 10:30 AM EDT) Kellie(R), Mycoplasma Hominis, Real-Time Pcr Not Detected Not Detected [facility] Comment:THIS TEST WAS PERFOR MED AT:[employer] [id number] [place] [phone] MCELROY MD,PHD Mycoplasma Genitalium, rRNA,TMA Not Detected Not Detected [facility] Comment:THIS TEST WAS PERFOR MED AT:[employer] [id number] [place] [address]ADRYLLOMICHAEL MCELROY MD,PHD U. Parvum DNA Not Detected Not Detected [facility] U. Urealyticum DNA Not Detected Not Detected [facility] Comment:This test was develo ped and its analyticalperformance characteristics have been determinedby [employer] [place], [place].It has not been cleared or approved by the FDA. Thisassay has been validated pursuant to the CLIAregulations and is used for clinical purposes.THIS TEST WAS PERFORMED AT:[employer] [id number] [place] [phone] MCELROY MD,PHD 12/09/2024 10:3 0 AM EDT 12/09/2024 6:12 PM EDT Serjio Bauer [facility] MICROBIOLOGY - GENERA L ORDERABLES Final Result Performing Organization Address [facility]/ZIP Co de Phone Number [facility] [address] [place] [phone] * Testosterone, Total, males (Adult), IA (12/09/2024 10:23 AM EDT) Testosterone, Total 25 2 - 45 ng/dL [facility] Comment:For additional infor mation, please refer tohttp://education.[employer]/faq/IyzpuFzzmyxiivwdcLSJPBVRDC493(This link is being provided for informational/educational purposes only.)This test was developed and its analytical performancecharacteristics have been determined by [employer] [place], [place]. It hasnot been cleared or approved by the U.S. Food and DrugAdministration. This assay has been validated pursuantto the CLIA regulations and is used for clinicalpurposes.THIS TEST WAS PERFORMED AT:[facility]/[id number] [place] [address]LVCASEUMICHAEL MCELROY MD,PHD Blood Venous blood specimen / Unknown 12/09/2024 10:23 AM EDT 12/09/2024 11:45 AM EDT Serjio Bauer [facility] BLOOD ORDERABLES Danni l Result Performing Organization Address City/[facility]/ZIP Co de Phone Number [facility] [address] [place] [phone] * POCT , urine manually resulted (12/09/2024 9:55 AM EDT) Preg Test, Ur Negative Negative, Indeterminate, None Detected, Invalid, Specimen unsatisfactory for evaluation, Weakly Positive, 2+ QC Media Lot # [id number] Lot# Expiration Date [id number] Urine 12/09/2024 9:55 AM EDT Serjio Bauer CNM POINT OF CARE TEST ENTER/ EDIT ORDERABLES Final Result * TSH W/Reflex to FT4 (11/25/2024 10:43 AM EDT) TSH reflex Free T4 1.40 0.32 - 4.0 uIU/mL [facility] Blood Venous blood specimen / Unknown 11/25/2024 10:43 AM EDT 11/25/2024 11:49 AM EDT Amarjit Echevarria MD LAB BLOOD ORDERABLES Final Resu lt [facility] [address] [place] [phone] * (ABNORMAL) CBC auto differential (11/25/2024 10:43 AM EDT) White Blood Count 7.1 4.8 - 10.8 X10*3/uL [facility] Red Blood Count 4.16(L) 4.20 - 5.50 X10*6/uL [facility] Hemoglobin 12.5 12.0 - 16.0 g/dl [facility] Hematocrit 37.3 37.0 - 47.0 % [facility] Mean Corpuscular Volume 89.7 80.0 - 98.0 fL [facility] Mean Corpuscular Hemoglobin 30.0 27.0 - 33.0 pg [facility] Mean Corpuscular HGB Conc 33.5 31.0 - 35.0 g/dl [facility] Red Cell Distribution Width 11.9 11.0 - 16.0 % [facility] Platelet Count 282 160 - 400 X10*3/uL [facility] Mean Platelet Volume 9.3(L) 9.4 - 12.3 fL [facility] Neutrophils Percent Auto 58.1 45 - 73 % [facility] Imm Gran Pct Auto 0.1 0.0 - 0.4 % [facility] Lymphocytes Percent Auto 30.6 20 - 40 % [facility] Monocytes Percent Auto 8.8 2 - 11 % [facility] Eosinophils Percent Auto 1.6 0 - 4 % [facility] Basophils Percent Auto 0.8 0 - 2 % [facility] NRBC Pct Auto 0.0 0.0 - 0.2 /100WBC [facility] Neutrophils Absolute Auto 4.1 2.0 - 8.3 x10*3/uL [facility] Imm Gran Abs Auto 0.01 0.00 - 0.03 X10*3/uL [facility] Lymphocytes Absolute Auto 2.2 1.2 - 4.9 X10*3/uL [facility] Monocytes Absolute Auto 0.6 0.1 - 1.2 X10*3/uL [facility] Eosinophils Absolute Auto 0.1 0.0 - 0.4 X10*3/uL [facility] Basophils Absolute Auto 0.1 0.0 - 0.2 X10*3/uL [facility] NRBC Abs Auto 0.000 0.0 - 0.012 X10*3/uL [facility] Blood Venous blood specimen / Unknown 11/25/2024 10:43 AM EDT 11/25/2024 11:49 AM EDT Amarjit Echevarria MD LAB BLOOD ORDERABLES Final Resu lt [facility] [address] [place] [phone] * (ABNORMAL) Testosterone, Free, Bioavailable And Total MS (11/25/2024 10:43 AM EDT) Testosterone, Total, MS 80(A) 2 - 45 ng/dL [facility] Comment:For additional infor mation, please refer tohttp://education.[employer].com/faq/WwazhMxofqmvwpfpfQAKMPBUGK816(This link is being provided for informational/educational purposes only.)This test was developed and its analytical performancecharacteristics have been determined by [employer] [place], [place]. It hasnot been cleared or approved by the U.S. Food and DrugAdministration. This assay has been validated pursuantto the CLIA regulations and is used for clinicalpurposes. Testosterone, Free 6.6(A) 0.2 - 5.0 pg/mL [facility] Testosterone,Bioavailable 12.7(A) 0.5 - 8.5 ng/dL [facility] Sex Hormone Binding Globulin 52 17 - 124 nmol/L [facility] Albumin 4.2 3.6 - 5.1 g/dL [facility] Comment:THIS TEST WAS PERFOR MED AT:[facility]/[id number] [place] [address]ACDHVON W. MASON,MD,PHD Blood Venous blood specimen / Unknown 11/25/2024 10:43 AM EDT 11/25/2024 11:49 AM EDT us Amarjit Echevarria MD LAB BLOOD ORDERABLES Final Resu lt Performing Organization Address City/[facility]/ZIP Co de Phone Number [facility] [address] [place] [phone] * (ABNORMAL) Mononucleosis Test, Qualitative (11/25/2024 10:43 AM EDT) Monotest Positive(A) Negative [facility] Blood Venous blood specimen / Unknown 11/25/2024 10:43 AM EDT 11/25/2024 11:49 AM EDT us Amarjit Echevarria MD LAB BLOOD ORDERABLES Final Resu lt Performing Organization Address City/[facility]/ZIP Co de Phone Number [facility] [address] [place] [phone] * Sed Rate by Aldair Rivers (11/25/2024 10:43 AM EDT) Erythrocyte Sedimentation Rate 7 0 - 20 MM/HR [facility] Comment:Patients with polycy themia and many hemoglobin abnormalitiesmay have depressed sed rates whereas patients with anemiamay have elevated sed rates. Blood Venous blood specimen / Unknown 11/25/2024 10:43 AM EDT 11/25/2024 11:49 AM EDT us Amarjit Echevarria MD LAB BLOOD ORDERABLES Final Resu lt Performing Organization Address City/[facility]/ZIP Co de Phone Number [facility] [address] [place] [phone] * C-reactive Protein (11/25/2024 10:43 AM EDT) C Reactive Protein <0.10 < or = 0.50 mg/dL [facility] Blood Venous blood specimen / Unknown 11/25/2024 10:43 AM EDT 11/25/2024 11:49 AM EDT us Amarjit Echevarria MD LAB BLOOD ORDERABLES Final Resu lt Performing Organization Address [facility]/ZIP Co de Phone Number [facility] [address] [place] [phone] * Creatine Kinase, Total (11/25/2024 10:43 AM EDT) Creatine Kinase Total 67 26 - 140 U/L [facility] Blood Venous blood specimen / Unknown 11/25/2024 10:43 AM EDT 11/25/2024 11:49 AM EDT us Amarjit Echevarria MD LAB BLOOD ORDERABLES Final Resu lt Performing Organization Address City/[facility]/ZIP Co de Phone Number [facility] [address] [place] [phone] * (ABNORMAL) Comprehensive Metabolic Panel (11/25/2024 10:43 AM EDT) Sodium 142 135 - 145 mmol/L [facility] Potassium 3.8 3.3 - 5.1 mmol/L [facility] Chloride 106 96 - 108 mmol/L [facility] Carbon Dioxide 31(H) 22 - 29 mmol/L [facility] Anion Gap 9(L) 12 - 20 [facility] Urea Nitrogen (BUN) 10 9 - 16 mg/dL [facility] Creatinine, Serum 0.73 0.5 - 1.4 mg/dL [facility] Estimated Glomerular Filt Rate >60 [facility] Comment:Chronic Kidney Disea se: Estimated GFR < 60 mL/min/1.75q4Nxnjpt Kidney Disease: Estimated GFR < 15 mL/min/1.73m2 Glucose 88 60 - 115 mg/dL [facility] Calcium 9.1 8.4 - 10.2 mg/dL [facility] Bilirubin, Total 0.4 0.0 - 1.0 mg/dL [facility] Aspartate Amino Transferase 26 5 - 31 U/L [facility] Alanine Aminotransferase 29 0 - 31 U/L [facility] Total Protein 7.1 6.5 - 8.0 g/dL [facility] Albumin Level 4.1 3.5 - 5.0 g/dL [facility] Alkaline Phosphatase 72 39 - 117 U/L [facility] Blood Venous blood specimen / Unknown 11/25/2024 10:43 AM EDT 11/25/2024 11:49 AM EDT us Amarjit Echevarria MD LAB BLOOD ORDERABLES Final Resu lt [facility] [address] [place], [place] [phone] * US Abdomen Limited (11/04/2024 10:40 AM EDT) Anatomical Region Laterality Modality Abdomen Ultrasound 11/04/2024 10:4 0 AM EDT Narrative 11/04/2024 10:57 AM EDT [address] [address] Ultrasound Report Signed Patient: Vi Garner MR# : [id number] : 2005 Acct:[id number] Age/Sex: 19 / F ADM Date: 11/04/24 Loc: HO.US Attending Dr: Pinky Bueno MD Ordering Physician: Pinky Bueno MD Date of Service: 11/04/24 Procedure(s): US abdomen limited Accession Number(s): [id number] cc: Pinky Bueno MD; Marilia Castillo MD [...] 11/04/24 1054 DD/ 1040 TD/TT: 11/04/24 1044 Shop Superintendent: Procedure Note Donotuseinterpreter, Image - 11/04/[address] [address] Ultrasound Report Signed Patient: Vi Garner NMR# : [id number] : 2005Acct:[id number] Age/Sex: 19 / FADM Date: 11/04/24 Loc: HO.US Attending Dr: Pinky Bueno MD Ordering Physician: Pinky Bueno MD Date of Service: 11/04/24 Procedure(s): US abdomen limited Accession Number(s): [id number] cc: Pinky Bueno MD; Marilia Castillo MD [...] 11/04/24 1054 DD/ 1040 TD/TT: 11/04/24 1044 Shop Superintendent: us Pinky Bueno MD IMG US PROCEDURES Final Result * Chlamydia/N. Gonorrhoeae RNA, TMA, Urogenitial (10/02/2024 12:56 PM EDT) CT PCR NOT DETECTED Not Detect. [facility] Comment:A not detected test result [...] psychologicalconsequences. NG PCR NOT DETECTED Not Detect. [facility] Comment:A not detected test result [...] AL ORDERABLES Final Result Performing Organization Address City/[facility]/ZIP Co de Phone Number [facility] [address] [place] [phone] * Hepatitis C Antibody with Reflex to HCV, RNA, Quantitative, Real-Time PCR (03/27/2023 10:37 AM EST) [facility] Hepatitis C Antibody Nonreactive Nonreactive [facility] Comment:Antibodies to HCV no t detected; does not exclude early acuteHCV infection. Blood Venous blood specimen / Unknown 03/27/2023 10:37 AM EST 03/27/2023 11:48 AM EST us Marilia Castillo MD LAB BLOOD ORDERABLES Final Resul t Performing Organization Address City/[facility] Co de Phone Number [facility] [address] [place] [phone] * HIV-1/2 Antigen and Antibodies, Fourth Generation, with Reflexes (03/27/2023 10:37 AM EST) HIV AB/AG Nonreactive Nonreactive [facility] Comment:HIV-1 p24 Ag and/or HIV-1/HIV-2 Ab not detected.A test result that is nonreactive does not exclude thepossibility of exposure to or infection with HIV-1 and/orHIV-2. Nonreactive results in this assay for individualswith prior exposure to HIV-1 and/or HIV-2 may be due toantigen and antibody levels that are below the limit ofdetection of this assay.The [employer] HIV Ag/Ab Combo assay result andsupplemental assay results should be interpreted inconjunction with the patient's clinical presentation,history and other laboratory results. If the results areinconsistent with clinical evidence, additional testing issuggested to confirm the result. Blood Venous blood specimen / Unknown 03/27/2023 10:37 AM EST 03/27/2023 11:48 AM EST us Marilia Castillo MD LAB BLOOD ORDERABLES Final Resul t [facility] [address] [place] [phone] [phone] from Last 3 Months or Most Recently Relevant to Health Maintenance Insurance [facility] , [address] [place] [id number] Care Teams Manipulative Therapy Specialist Relationship Specialty Start Date End Date Marilia Castillo MD [address] [place] [address] PCP - General Family Medicine 03/27/23
--- OUTSIDE RECORDS SUMMARY | 2025-01-20 19:01 | XMS_ITS | Encounter Summary ---
Author Organization [employer] Address [address] 7[address] [place] [address] Care Team Providers Care Middleware Administrator Name Role Phone Marilia Castillo MD Primary Care Provider [phone] Reason for Visit * Reason Onset Date Comments Referral 12/08/2024 Encounter Details Date Type Department Care Team ([facility] st Contact Info) Description 12/08/2024 Telephone [facility]INE [address] [place] [address] Marilia Castillo MD [address] [place] [address] Referral Social History Tobacco Use Types Packs/Day [...] EDT Triage call Pt was seen in [facility] 11/23/24 and irregular menstrual cycle was a concern. Provider recommended a IT SOLUTIONS SALES CONSULTANT eval . Pt last period was 11/05/24- [...] when the referral has been sent at [phone] documented in this encounter Plan of Treatment Not on file documented as of this encounter Visit Diagnoses Not on filedocumented in this encounter Additional Health Concerns Assessment Noted Time PHQ-9 Depression Total Score: 0 09/14/19 25 9:20 AM EDT documented as of this encounter Care Teams Middleware Administrator Relationship Specialty Start Date End Date Marilia Castillo MD [address] [place] [address] PCP - General Family Medicine 03/27/23 documented as of this encounter
--- OUTSIDE RECORDS SUMMARY | 2025-01-20 19:01 | XMS_ITS | Clinical Summary ---
Author Organization [facility] Address [address] [place] [address] Phone Care Team Providers Care Hawk Missile System Crewmember Name Role Phone Unavailable Primary Care Provider [...] Other No family histo ry of *Sudden /OK under 55, No family history of ADD/ADHD, [...] HPV Vaccines Completed 04/25/2016, 12/08, 10/17/2015 Insurance [facility] NON PCC Member Subscriber Plan / Payer (Ef fective 2016-Present) Name:Vi Putnam Relation to Subscriber:Self Name:Vi Putnam Payer ID:Not on file Group ID:Not on file Type:Medicaid Address: [address] [employer]
--- OUTSIDE RECORDS SUMMARY | 2025-01-20 19:01 | XMS_ITS | Encounter Summary ---
Author Organization [employer] Address [address] [facility] 7t [place] [address] Care Team Providers Care Mine Surveyor Name Role Phone Marilia Castillo MD Primary Care Provider [phone] Reason for Visit * Reason Onset Date Comments Med Refill 07/01/2023 Encounter Details Date Type Department Care Team (Late st Contact Info) Description 07/01/[address] [facility] MED[facility]INE [address] [place] [address] Maggie Gonzalez MD 230 [place] [address] Social History Tobacco Use Types Packs/Day Years [...] documented as of this encounter Care Teams Mine Surveyor Relationship Specialty Start Date End Date Marilia Castillo MD 230 [place] [address] PCP - General Family Medicine 03/27/23 documented as of this encounter
--- OUTSIDE RECORDS SUMMARY | 2025-01-20 19:01 | XMS_ITS | Encounter Summary ---
Author Organization [employer] Address [address] [facility] 7t [place] [address] Care Team Providers Care Can Repairer Name Role Phone Marilia Castillo MD Primary Care Provider [phone] Reason for Visit * Reason Comments Med Refill Encounter Details Date Type Department Care Team ([facility] st Contact Info) Description 02/15/2024 Refill [facility] [address] [place] [address] Maggie Gonzalez MD 230 [place] [address] Social History Tobacco Use Types Packs/Day Years [...] documented as of this encounter Care Teams Can Repairer Relationship Specialty Start Date End Date Marilia Castillo MD 230 [place] [address] PCP - General Family Medicine 03/27/23 documented as of this encounter
--- OUTSIDE RECORDS SUMMARY | 2025-01-20 19:01 | XMS_ITS | Encounter Summary ---
Author Organization [facility] Address [address] [place] [address] Phone Care Team Providers Care Certified Orthotic Fitter Name Role Phone Tiffanie Caputo CROWN BLOCKER Primary Care Provider Jane horton Encounter Details Date Type Department Care Team (Late st Contact Info) Description 10/24/2016 Conversion Encounter [facility] - [address] [address] Social History Tobacco Use Types Packs/Day Years [...] on filedocumented in this encounter Care Teams Certified Orthotic Fitter Relationship Specialty Start Date End Date Tiffanie Caputo NP PCP - General 10/18/16 06/19/22 documented as of this encounter
--- OUTSIDE RECORDS SUMMARY | 2025-01-20 19:01 | XMS_ITS | Encounter Summary ---
Author Organization [employer] Address [address] [facility] [address] 7[address] [place] [address] Care Team Providers Care Referral Specialist Name Role Phone Marilia Castillo MD Primary Care Provider [phone] Reason for Visit * Reason Onset Date Comments Error 07/07/2023 Encounter Details Date Type Department Care Team ([facility] st Contact Info) Description 07/07/2023 Telephone [facility]INE 230 [place] [address] Marilia Castillo MD [address] [place] [address] Error Social History Tobacco Use Types Packs/Day [...] documented as of this encounter Care Teams Referral Specialist Relationship Specialty Start Date End Date Marilia Castillo MD 230 [place] [address] PCP - General Family Medicine 03/27/23 documented as of this encounter
--- OUTSIDE RECORDS SUMMARY | 2025-01-20 19:01 | XMS_ITS | Encounter Summary ---
Author Organization [employer] Address [address] [facility] 7t [place] [address] Care Team Providers Care Reject Opener Name Role Phone Marilia Castillo MD Primary Care Provider Reason for Visit * Reason Comments Med Refill Encounter Details Date Type Department Care Team ([facility] st Contact Info) Description 01/12/2024 Refill [facility] [address] [place] [address] Maggie Gonzalez MD [address] [place] [address] Social History Tobacco Use Types Packs/Day Years [...] documented as of this encounter Care Teams Reject Opener Relationship Specialty Start Date End Date Marilia Castillo MD 230 [place] [address] PCP - General Family Medicine 03/27/23 documented as of this encounter
--- OUTSIDE RECORDS SUMMARY | 2025-01-20 19:01 | XMS_ITS | Clinical Summary ---
Author Organization [facility] Address [address] [place] [address] Care Team Providers Care Drafter Cartographic Name Role Phone Unavailable Primary Care Provider [...] Depression Screening 03/10/2024 COVID-19 Vaccine (1 - 2024-2 6 season) 2024 Influenza Vaccine (#1) 2024 RSV [...]
--- OUTSIDE RECORDS SUMMARY | 2025-01-20 19:01 | XMS_ITS | Encounter Summary ---
Author Organization [employer] Address [address] [facility] [address] 7[address] [place] [address] Care Team Providers Care Engine Watchman Name Role Phone Marilia Castillo MD Primary Care Provider [phone] Encounter Details Date Type Department Care Team (Latest Contact Info) Description 12/14/2024 Results Follow-Up [facility] 230 [place] [address] Linda Gamez, CN [address] [place] [address] Testosterone, Total, males (Adult), IA, POCT , urine manually resulted, US Pelvis Transvaginal Social History Tobacco Use Types Packs/Day Years [...] Miscellaneous Notes * Result Encounter Note - Linda Gamez CNM - 12/14/2024 9:48 AM EDT Mycoplasma testing sent last week using order from 09/2024. Could you please make sure lab is running? Thanks! documented in this encounter Plan of Treatment Not on file documented as of this encounter Visit Diagnoses Not on filedocumented in this encounter Additional Health Concerns Assessment Noted Time PHQ-9 Depression Total Score: 0 09/14/19 25 9:20 AM EDT documented as of this encounter Care Teams Engine Watchman Relationship Specialty Start Date End Date Marilia Castillo MD [address] [place] [address] PCP - General Family Medicine 03/27/23 documented as of this encounter
--- OUTSIDE RECORDS SUMMARY | 2025-01-20 19:01 | XMS_ITS | Encounter Summary ---
Author Organization [employer] Address [address] [facility] [address] [facility] [address] 7t [place] [address] Care Team Providers Care Geotechnical Laboratory Technician Name Role Phone Marilia Castillo MD Primary Care Provider [phone] Encounter Details Date Type Department Care Team ([facility] st Contact Info) Description 12/08/2024 Telephone [facility] [address] [place], [place] [phone] Marilia Castillo MD [address] [place] [address] Social History Tobacco Use Types Packs/Day Years [...] documented as of this encounter Care Teams Geotechnical Laboratory Technician Relationship Specialty Start Date End Date Marilia Castillo MD [address] [place] [address] PCP - General Family Medicine 03/27/23 documented as of this encounter
--- OUTSIDE RECORDS SUMMARY | 2025-01-20 19:01 | XMS_ITS | Encounter Summary ---
Author Organization [facility] Address [address] [place] [address] Phone Care Team Providers Care Terminal Carman Name Role Phone Tiffanie Caputo NP Primary Care Provider Jane horton Encounter Details Date Type Department Care Team (Late st Contact Info) Description 06/25/2013 Documentation [facility] Family Medicine [address] [place] [address] Family Medicine, Physician [place] [address] Social History Tobacco Use Types Packs/Day Years [...] on filedocumented in this encounter Care Teams Terminal Carman Relationship Specialty Start Date End Date Tiffanie Caputo NP PCP - General 10/18/16 06/19/22 documented as of this encounter
--- OUTSIDE RECORDS SUMMARY | 2025-01-20 19:01 | XMS_ITS | Encounter Summary ---
Author Organization [employer] Address [address] 7t [place] [address] Care Team Providers Care Drawer In Name Role Phone Marilia Castillo MD Primary Care Provider [phone] Encounter Details Date Type Department Care Team ([facility] st Contact Info) Description 07/07/2023 Telephone [facility]INE [address] [place], [place] [phone] Marilia Castillo MD 230 [place], [place] [phone] Social History Tobacco Use Types Packs/Day Years [...] documented as of this encounter Care Teams Drawer In Relationship Specialty Start Date End Date Marilia Castillo MD [address] [place] [address] PCP - General Family Medicine 03/27/23 documented as of this encounter
--- OUTSIDE RECORDS SUMMARY | 2025-01-20 19:01 | XMS_ITS | Encounter Summary ---
Author Organization [employer] Address [address] [facility] [address] 7[address] [place] [address] Care Team Providers Care Bell Cleaner Name Role Phone Marilia Castillo MD Primary Care Provider [phone] Encounter Details Date Type Department Care Team ([facility] st Contact Info) Description 12/15/2024 Results Follow-Up [facility]INE [address] [place] [address] Linda Gamez, LAURIE [address] [place] [address] Mycoplasma/Ureaplasm a Panel Social History Tobacco Use Types Packs/Day Years [...] documented as of this encounter Care Teams Bell Cleaner Relationship Specialty Start Date End Date Marilia Castillo MD 230 [place] [address] PCP - General Family Medicine 03/27/23 documented as of this encounter
--- OUTSIDE RECORDS SUMMARY | 2025-01-20 19:01 | XMS_ITS | Encounter Summary ---
Author Organization [facility] Address [address] [place] [address] Phone Care Team Providers Care Hydrogen Plant Operator Name Role Phone Tiffanie Caputo NP Primary Care Provider Jane horton Encounter Details Date Type Department Care Team (Late st Contact Info) Description 06/24/2015 Documentation [facility] [place] Medicine [address] [place] [address] Family Medicine, Physician [facility] [place] [address] Social History Tobacco Use Types Packs/Day Years [...] on filedocumented in this encounter Care Teams Hydrogen Plant Operator Relationship Specialty Start Date End Date Tiffanie Caputo NP PCP - General 10/18/16 06/19/22 documented as of this encounter
--- OUTSIDE RECORDS SUMMARY | 2025-01-20 19:01 | XMS_ITS | Encounter Summary ---
Author Organization [facility] Address [address] [place] [address] Phone Care Team Providers Care Assistant Manager Trainee Name Role Phone Tiffanie Caputo NP Primary Care Provider Jane horton Encounter Details Date Type Department Care Team (Late st Contact Info) Description 07/28/2009 Documentation [facility] Family Medicine [address] [place] [address] Family Medicine, Physician [address] [place] [address] Social History Tobacco Use Types Packs/Day Years [...] on filedocumented in this encounter Care Teams Assistant Manager Trainee Relationship Specialty Start Date End Date Tiffanie Caputo NP PCP - General 10/18/16 06/19/22 documented as of this encounter
--- OUTSIDE RECORDS SUMMARY | 2025-01-20 19:01 | XMS_ITS | Encounter Summary ---
Author Organization [employer] Address [address] [facility] [address] 7t [place] [address] Care Team Providers Care Access Specialist Name Role Phone Marilia Castillo MD Primary Care Provider [phone] Reason for Visit * Reason Onset Date Comments Nurse Triage 11/22/2024 Encounter Details Date Type Department Care Team ([facility] st Contact Info) Description 11/22/2024 Telephone [facility]INE [address] [place], [place] [phone] Marilia Castillo MD 230 [place], [place] [phone] Nurse Triage Social History Tobacco Use Types [...] Pt. Pt is advised to come to [facility] open till 8pm today, 830am -800pm tomorrow. [...] Reason: Getting worse Please contact pt at [phone]. documented in this encounter Plan of Treatment Not on file documented as of this encounter Visit Diagnoses Not on filedocumented in this encounter Additional Health Concerns Assessment Noted Time PHQ-9 Depression Total Score: 0 09/14/19 25 9:20 AM EDT documented as of this encounter Care Teams Access Specialist Relationship Specialty Start Date End Date Marilia Castillo MD [address] [place] [address] PCP - General Family Medicine 03/27/23 documented as of this encounter
[2025-01-20 21:12] VITALS: BP 105/68; PULSE 88; RESP 16; TEMP 36.9; O2SAT 96
== END 2025-01-20 21:12 | disposition home or self-care (01) ==
PROVIDERS: Physician Assistant; Emergency Provider Emergency Medicine; PCP Family Medicine
DX: M54.12 Radiculopathy, cervical region (principal); R20.0 Anesthesia of skin; M79.609 Pain in unspecified limb; I49.8 Other specified cardiac arrhythmias; Z79.899 Other long term (current) drug therapy
CPT/HCPCS: 36415; 80053; 82550; 83735; 84484; 85025; 85610; 85730; 93005; 96372; 99284; J1885

== ENCOUNTER → 2025-01-20 16:41 | Outpatient (BNV) | payer OTHER, MEDICAID, SELFPAY | PROVIDERS: Emergency Provider Emergency Medicine; PCP Family Medicine; Visit Provider Internal Medicine Cardiovascular Disease | DX: I49.9 Cardiac arrhythmia, unspecified (principal) | CPT/HCPCS: 93010 ==

== ENCOUNTER → 2025-02-02 12:50 | Outpatient (BNV) | payer OTHER, MEDICAID, SELFPAY | PROVIDERS: PCP Family Medicine; Visit Provider Radiology Body Imaging | DX: M54.2 Cervicalgia (principal); R51.9 Headache, unspecified; R20.0 Anesthesia of skin | CPT/HCPCS: 70553; 72156 ==

== ENCOUNTER 2025-02-02 12:55 | Outpatient (REF) | payer OTHER, MEDICAID, SELFPAY ==
--- NOTE | ~2025-02-02 | MR_ITS ---
EXAMINATION: MR CERVICAL SPINE WITHOUT THEN WITH IV CONTRAST CLINICAL INFORMATION: Headache, neck pain, left-sided upper extremity numbness, evaluate for MS COMPARISON: CT of the cervical spine on April 20, 2019 TECHNIQUE: MRI of the cervical spine was obtained using routine sequences prior to and following intravenous administration of 3.5 cc of contrast gadolinium Gadavist. FINDINGS: Alignment and vertebrae: Straightening of the cervical lordosis. No subluxation. No compression fracture. Intervertebral discs: Height and signal preserved. Spinal cord: Normal caliber and signal intensity. No focal lesions. No evidence of cord compression. No abnormal enhancement. Soft tissues: Prevertebral and posterior paraspinal soft tissues are remarkable. Other findings: No concerning findings. Findings by level: C2-C3: No spinal canal or neuroforaminal stenosis. C3-C4: No spinal canal or neuroforaminal stenosis. C4-C5: No spinal canal or neuroforaminal stenosis. C5-C6: No spinal canal or neuroforaminal stenosis. C6-C7: No spinal canal or neuroforaminal stenosis. C7-T1: No spinal canal or neuroforaminal stenosis. MR/MR cervical spine wo/w con IMPRESSION: Normal MR appearance of the spinal cord. No evidence of multiple sclerosis. Electronically signed by: Kayli Michele MD 02/02/2025 03:31 PM [facility]
--- NOTE | ~2025-02-02 | MR_ITS ---
EXAMINATION: MR BRAIN WITHOUT THEN WITH IV CONTRAST CLINICAL INFORMATION: CERVICALGIA, PARATHESIA OF SKIN, HEADACHE EVAL FOR MS, PIT HOROMONE COMPARISON: Head CT on April 20, 2019 TECHNIQUE: Multiplanar, multisequence MRI of the brain was obtained prior to and following intravenous administration of 3.5 cc of gadolinium Gadavist. FINDINGS: Sella: Pituitary gland is normal in size, with flat superior surface. Mildly heterogeneous enhancement, but no discrete mass. Infundibulum is midline. No mass effect on the optic nerves or optic chiasm. Cavernous sinuses appear normal. Brain parenchyma: No shift of midline structures, evidence of acute infarct, mass lesion or parenchymal hemorrhage. No white matter lesions suggestive of multiple sclerosis. No abnormal parenchymal enhancement following administration of intravenous contrast. 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 Ventricles/extra-axial CSF spaces: No hydrocephalus or extra-axial fluid collection. Extracranial structures: Arterial flow voids in the skull base are preserved. Bilateral orbital globes are unremarkable. Paranasal sinuses and mastoid air cells are clear. MR/MR head/brain wo/w con IMPRESSION: 1. No acute intracranial findings. 2. No white matter lesions to suggest multiple sclerosis. 3. No focal pituitary gland lesions. Electronically signed by: Kayli Michele MD 02/02/2025 03:10 PM [facility]
--- OUTSIDE RECORDS SUMMARY | 2025-02-02 15:56 | XMS_ITS | Encounter Summary ---
Author Organization [facility] Address [address] [place] [address] Phone Care Team Providers Care Surveillance Observer Name Role Phone Tiffanie Caputo NP Primary Care Provider Jane horton Encounter Details Date Type Department Care Team (Late st Contact Info) Description 06/24/2015 Documentation [facility] Family Medicine [address] [place] [address] Family Medicine, Physician [facility] [place] [address] Social History Tobacco Use Types Packs/Day Years [...] on filedocumented in this encounter Care Teams Surveillance Observer Relationship Specialty Start Date End Date Tiffanie Caputo NP PCP - General 10/18/16 06/19/22 documented as of this encounter
--- OUTSIDE RECORDS SUMMARY | 2025-02-02 15:56 | XMS_ITS | Encounter Summary ---
Author Organization [employer] Address [address] [facility] [facility] [address] 7t [place] [address] Care Team Providers Care Career Technology Teacher Name Role Phone Marilia Castillo MD Primary Care Provider [phone] Encounter Details Date Type Department Care Team ([facility] st Contact Info) Description 12/15/2024 Results Follow-Up [facility]INE [address] [place] [address] Linda Gamez, CN [address] [place] [address] Mycoplasma/Ureaplasm a Panel Social History Tobacco Use [...] Care Team (Late st Contact Info) Description 03/14/2025 10:00 AM EST Office Visit [facility] MEDICINE [address] [place] [address] Marilia Castillo MD 230 [place] [address] documented as of this encounter Visit Diagnoses Not on filedocumented in this encounter Additional Health Concerns Assessment Noted Time PHQ-9 Depression Total Score: 0 09/14/19 25 9:20 AM EDT documented as of this encounter Care Teams Career Technology Teacher Relationship Specialty Start Date End Date Marilia Castillo MD [address] [place] [address] PCP - General Family Medicine 03/27/23 documented as of this encounter
--- OUTSIDE RECORDS SUMMARY | 2025-02-02 15:56 | XMS_ITS | Encounter Summary ---
Author Organization [employer] Address [address] [facility] [address] 7t [place] [address] Care Team Providers Care Inkjet Operator Name Role Phone Marilia Castillo MD Primary Care Provider [phone] Encounter Details Date Type Department Care Team (Latest Contact Info) Description 12/14/2024 Results Follow-Up [facility]INE [address] [place] [address] Linda Gamez, CN [address] [place] [address] Testosterone, Total, males (Adult), IA, POCT , [...] Description 03/14/2025 10:00 AM EST Office Visit [facility]INE [address] [place] [address] Marilia Castillo MD 230 [place] [address] documented as of this encounter Visit Diagnoses Not on filedocumented in this encounter Additional Health Concerns Assessment Noted Time PHQ-9 Depression Total Score: 0 09/14/19 9:20 AM EDT documented as of this encounter Care Teams Inkjet Operator Relationship Specialty Start Date End Date Marilia Castillo MD [address] [place] [address] PCP - General Family Medicine 03/27/23 documented as of this encounter
--- OUTSIDE RECORDS SUMMARY | 2025-02-02 15:56 | XMS_ITS | Encounter Summary ---
Author Organization [employer] Address [address] [place] [address] Care Team Providers Care Certified Art Therapist Name Role Phone Marilia Castillo MD Primary Care Provider [phone] Encounter Details Date Type Department Care Team ([facility] st Contact Info) Description 07/07/2023 Telephone [facility] MEDICINE [address] [place], [place] [phone] Marilia Castillo MD 230 [place], [place] [phone] Social History Tobacco Use Types Packs/Day Years [...] Description 03/14/2025 10:00 AM EST Office Visit [facility] MEDICINE [address] [place] [address] Marilia Castillo MD [address] [place] [address] documented as of this encounter Visit Diagnoses Not on filedocumented in this encounter Additional Health Concerns Assessment Noted Time PHQ-9 Depression Total Score: 0 03/27/19 9:28 AM EST documented as of this encounter Care Teams Certified Art Therapist Relationship Specialty Start Date End Date Marilia Castillo MD [address] [place] [address] PCP - General Family Medicine 03/27/23 documented as of this encounter
--- OUTSIDE RECORDS SUMMARY | 2025-02-02 15:56 | XMS_ITS | Clinical Summary ---
Author Organization [facility] Address [address] [place] [address] Care Team Providers Care Customer Service Representative Teacher Name Role Phone Unavailable Primary Care Provider [...]
--- OUTSIDE RECORDS SUMMARY | 2025-02-02 15:56 | XMS_ITS | Encounter Summary ---
Author Organization [employer] Address [address] [facility] [address] [place] [address] Care Team Providers Care Dairy Farm Worker Name Role Phone Marilia Castillo MD Primary Care Provider [phone] Encounter Details Date Type Department Care Team ([facility] st Contact Info) Description 12/08/2024 Telephone [facility] [address] [place], [place] [phone] Marilia Castillo MD [address] [place] [address] Social History Tobacco Use Types Packs/Day Years [...] Description 03/14/2025 10:00 AM EST Office Visit [facility] MEDICINE 230 [place] [address] Marilia Castillo MD [address] [place] [address] documented as of this encounter Visit Diagnoses Not on filedocumented in this encounter Additional Health Concerns Assessment Noted Time PHQ-9 Depression Total Score: 0 09/14/19 25 9:20 AM EDT documented as of this encounter Care Teams Dairy Farm Worker Relationship Specialty Start Date End Date Marilia Castillo MD 230 [place] [address] PCP - General Family Medicine 03/27/23 documented as of this encounter
--- OUTSIDE RECORDS SUMMARY | 2025-02-02 15:56 | XMS_ITS | Encounter Summary ---
Author Organization [employer] Address [address] [place] [address] Care Team Providers Care Sample Body Builder Name Role Phone Marilia Castillo MD Primary Care Provider [phone] Reason for Visit * Reason Onset Date Comments Error 07/07/2023 Encounter Details Date Type Department Care Team ([facility] st Contact Info) Description 07/07/2023 Telephone [facility] [address] [place] [address] Marilia Castillo MD [address] [place] [address] Error Social History Tobacco Use Types Packs/Day [...] Description 03/14/2025 10:00 AM EST Office Visit [facility] [address] [place] [address] Marilia Castillo MD [address] [place] [address] documented as of this encounter Visit Diagnoses Not on filedocumented in this encounter Additional Health Concerns Assessment Noted Time PHQ-9 Depression Total Score: 0 03/27/19 9:28 AM EST documented as of this encounter Care Teams Sample Body Builder Relationship Specialty Start Date End Date Marilia Castillo MD [address] [place] [id number] PCP - General Family Medicine 03/27/23 documented as of this encounter
--- OUTSIDE RECORDS SUMMARY | 2025-02-02 15:56 | XMS_ITS | Encounter Summary ---
Author Organization [employer] Address [address] [place] [address] Care Team Providers Care [employer] Name Role Phone Marilia Castillo MD Primary Care Provider [phone] Reason for Visit * Reason Onset Date Comments Referral 12/08/2024 Encounter Details Date Type Department Care Team ([facility] st Contact Info) Description 12/08/2024 Telephone [facility] [address] [place] [address] Marilia Castillo MD [address] [place] [address] Referral Social History Tobacco Use Types Packs/Day [...] EDT Triage call Pt was seen in [facility] 11/23/24 and irregular menstrual cycle was a concern. Provider recommended a WIRE[employer] FI[employer] TECHNICIAN eval . Pt last period was 11/05/24- [...] when the referral has been sent at [phone] documented in this encounter Plan of Treatment Upcoming Encounters Date Type Department Care Team (Late st Contact Info) Description 03/14/2025 10:00 AM EST Office Visit [facility] [address] [place] [address] Marilia Castillo MD [address] [place] [address] documented as of this encounter Visit Diagnoses Not on filedocumented in this encounter Additional Health Concerns Assessment Noted Time PHQ-9 Depression Total Score: 0 09/14/19 25 9:20 AM EDT documented as of this encounter Care Teams [employer] Relationship Specialty Start Date End Date Marilia Castillo MD [address] [place] [id number] PCP - General Family Medicine 03/27/23 documented as of this encounter
--- OUTSIDE RECORDS SUMMARY | 2025-02-02 15:57 | XMS_ITS | Clinical Summary ---
Author Organization [employer] Address [address] [place] [address] [place] [address] Care Team Providers Care Sanding Supervisor Name Role Phone Marilia Castillo MD Primary Care Provider [phone] Allergies Active Allergy Reactions Criticality Noted Date [...] bothered by this symptom; consider evaluation by [facility] Chronic pelvic pain in female 01/07/2025 Assessment & Plan (01/07/2025 10:50 AM EDT): - Possible endometriosis - 01/05/2025 pelvic ultrasound showed right paraovarian cyst, otherwise unremarkable - Consider referring her to [facility] for further evaluation and management Chronic abdominal pain 01/07/2025 Assessment & Plan (01/07/2025 10:49 AM EDT): - 05/16/[address] (done in [facility]) no acute intra-abdominal proess; moderate constipation - Abdominal ultrasound on 11/04/2024: No hydronephrosis; normal-sized spleen. - Pelvic ultrasound on 01/05/2025 righ paraovarian cyst, otherwise normal - Possible endometriosis; consider referral to beef killer for further evaluation and management Paresthesia of [...] Encounters Date Type Department Care Team Description 02/01/2025 Telephone [facility] [address] [place] [phone] Marilia Castillo MD february01/10/2025 Telephone [facility] [address] [place] [phone] Marilia Castillo MD Results 01/06/2025 10:15 AM EDT Office Visit [facility] [address] [place] [phone] Marilia Castillo MD Elevated testosterone level in female (Primary Dx); Elevated prolactin level; Other headache syndrome; Irregular menstruation; Vaginal discharge; Chronic pelvic pain in female; Chronic abdominal pain; Fatigue, unspecified type; Paresthesia of left arm; Neck pain on left side; Photosensitivity; Routine screening for STI (sexually transmitted infection) 01/06/2025 Travel 01/05/2025 Telephone [facility] [place] [address] Marilia Castillo MD chart prep 12/29/2024 Patient Outreach [facility] [place] [address] Marilia Castillo MD Pre-visit Planning (SDOH Screening negative and Tobacco screening negative) 12/20/[address] [address] Marilia Castillo MD No Show 12/17/[address] [address] Marilia Castillo MD chartprep 12/15/2024 Travel 12/15/2024 Results Follow-Up [address] [address] Serjio Bauer CNM Mycoplasma/Ureaplasma Panel 12/14/2024 Results Follow-Up [address] [address] Serjio Bauer CNM Testosterone, Total, males (Adult), IA, POCT , urine manually resulted, US Pelvis Transvaginal 12/13/[address] [address] Marilia Castillo MD Change PCP 12/09/2024 9:30 AM EDT Office Visit [address] [address] Serjio Bauer CNM Irregular menstruation (Primary Dx); Pelvic pain; Vaginal discharge 12/09/2024 Orders Only [address] [place] [address] Serjio Bauer CNM 12/09/2024 Travel 12/08/[address] [facility] [address] [facility], [place] [phone] Marilia Castillo MD 12/08/[address] [address] Marilia Castillo MD Referral 12/08/2024 Telephone [facility] [address] [place] [address] Marilia Castillo MD Lab Orders 11/23/2024 3:20 PM EDT Office Visit [facility] [address] [place] [phone] Amarjit Echevarria MD Nonintractable headache, unspecified chronicity pattern, unspecified headache type (Primary Dx); Fatigue, unspecified type; Irregular menstruation; Arm numbness; Anxiety 11/23/2024 Travel 11/22/2024 Telephone [facility] [address] [place] [address] [phone] Marilia Castillo MD Nurse Triage 11/10/[address] [address] Marilia Castillo MD Stable Lab Letter 11/10/2024 Results Follow-Up [address] [address] Pinky Bueno MD US Abdomen Limited from [...] unspecified 10/17/2015 Meningococcal MCV4P ACYW-135 10/17/2015 Novel [id number]-[id number], all formulations 02/24/2009,01/19/2009 Pneumococcal Conjugate PCV 13 [...] 01/06/2025 10:29 AM EDT Plan of Treatment Upcoming Encounters Date Type Department Care Team (Late st Contact Info) Description 03/14/2025 10:00 AM EST Office Visit [facility] [address] [place], [place] [phone] Marilia Castillo MD [address] [place] [address] Health Maintenance Due Date Last Done Comments [...] Procedure Name Priority Date/Time Associated Diagnosis Comments MR CERVICAL SPINE W AND WO CONTRAST Routine 02/02/2025 12:57 PM EST Paresthesia of left arm Neck pain on left side MR BRAIN W AND WO CONTRAST Routine 02/02/2025 12:57 PM EST Elevated testosterone level in female Elevated prolactin level Other headache syndrome Fatigue, unspecified type Photosensitivity US PELVIS TRANSVAGINAL Urgent 01/05/2025 2:34 PM [...] Recently Relevant to Health Maintenance Results * MR Cervical Spine w/ and w/o Contrast (02/02/2025 12:57 PM EST) Anatomical Region Laterality Modality Spine, C-spine Magnetic Resonan ce 02/02/2025 12:5 7 PM EST Narrative 02/02/2025 3:34 PM EST [place] [address] Magnetic Resonance Report Signed Patient: Vi Garner MR# : [id number] : 2005 Acct:[id number] Age/Sex: 19 / F ADM Date: 02/02/25 Loc: HO.MRI Attending Dr: Marilia Castillo MD Ordering Physician: Marilia Castillo MD Date of Service: 02/02/25 Procedure(s): MR cervical spine wo/w con Accession Number(s): [id number] cc: Marilia Castillo MD Reason for Exam: Headache, neck pain, left-sided upper extremity numbness, evaluate for MS EXAMINATION: MR CERVICAL SPINE WITHOUT THEN WITH IV CONTRAST CLINICAL INFORMATION: Headache, neck pain, left-sided upper extremity numbness, evaluate for MS COMPARISON: CT of the cervical spine on April 20, 2019 TECHNIQUE: MRI of the cervical spine was obtained using routine sequences prior to and following intravenous administration of 3.5 cc of contrast gadolinium Gadavist. FINDINGS: Alignment and vertebrae: Straightening of the cervical lordosis. No subluxation. No compression fracture. Intervertebral discs: Height and signal preserved. Spinal cord: Normal caliber and signal intensity. No focal lesions. No evidence of cord compression. No abnormal enhancement. Soft tissues: Prevertebral and posterior paraspinal soft tissues are remarkable. Other findings: No concerning findings. Findings by level: C2-C3: No spinal canal or neuroforaminal stenosis. C3-C4: No spinal canal or neuroforaminal stenosis. C4-C5: No spinal canal or neuroforaminal stenosis. C5-C6: No spinal canal or neuroforaminal stenosis. C6-C7: No spinal canal or neuroforaminal stenosis. C7-T1: No spinal canal or neuroforaminal stenosis. MR/MR cervical spine wo/w con IMPRESSION: Normal MR appearance of the spinal cord. No evidence of multiple sclerosis. Electronically signed by: Kayli Michele MD 02/02/2025 03:31 PM [facility] Dictated By: Kayli Michele MD Signed By: <Electronically signed by Kayli Michele MD in OV> 02/02/25 1531 DD/ 1257 TD/TT: 02/02/25 1412 Data Science And Iot Manager: Procedure Note Donotuseinterpreter, Image - 02/02/2025 [place] [address] Magnetic Resonance Report Signed Patient: Vi Garner [facility]# : [id number] : 2005Acct:[id number] Age/Sex: 19 / FADM Date: 02/02/25 Loc: HO.MRI Attending Dr: Marilia Castillo MD Ordering Physician: Marilia Castillo MD Date of Service: 02/02/25 Procedure(s): MR cervical spine wo/w con Accession Number(s): [id number] cc: Marilia Castillo MD Reason for Exam: Headache, neck pain, left-sided upper extremitynumbness, evaluate for MS EXAMINATION: MR CERVICAL SPINE WITHOUT THEN WITH IV CONTRAST CLINICAL INFORMATION: Headache, neck pain, left-sided upper extremity numbness, evaluate for MS COMPARISON: CT of the cervical spine on April 20, 2019 TECHNIQUE: MRI of the cervical spine was obtained using routine sequences prior to and following intravenous administration of 3.5 cc of contrast gadolinium Gadavist. FINDINGS: Alignment and vertebrae: Straightening of the cervical lordosis. No subluxation. No compression fracture. Intervertebral discs: Height and signal preserved. Spinal cord: Normal caliber and signal intensity. No focal lesions. No evidence of cord compression. No abnormal enhancement. Soft tissues: Prevertebral and posterior paraspinal soft tissues are remarkable. Other findings: No concerning findings. Findings by level: C2-C3: No spinal canal or neuroforaminal stenosis. C3-C4: No spinal canal or neuroforaminal stenosis. C4-C5: No spinal canal or neuroforaminal stenosis. C5-C6: No spinal canal or neuroforaminal stenosis. C6-C7: No spinal canal or neuroforaminal stenosis. C7-T1: No spinal canal or neuroforaminal stenosis. MR/MR cervical spine wo/w con IMPRESSION: Normal MR appearance of the spinal cord. No evidence of multiple sclerosis. Electronically signed by: Kayli Michele MD 02/02/2025 03:31 PM EST Dictated By: Kayli Michele MD Signed By: <Electronically signed by Kayli Michele MD in OV> 02/02/25 1531 DD/ 1257 TD/TT: 02/02/25 1412 Data Science And Iot Manager: us Marilia Castillo MD IM MRI PROCEDURES Final Result * Mr Brain w/ and w/o Contrast (02/02/2025 12:57 PM EST) Anatomical Region Laterality Modality Brain Magnetic Resonan ce 02/02/2025 12:5 7 PM EST Narrative 02/02/2025 3:13 PM EST [address] [address] Magnetic Resonance Report Signed Patient: Vi Garner MR# : [id number] : 2005 Acct:[id number] Age/Sex: 19 / F ADM Date: 02/02/25 Loc: HO.MRI Attending Dr: Marilia Castillo MD Ordering Physician: Marilia Castillo MD Date of Service: 02/02/25 Procedure(s): MR head/brain wo/w con Accession Number(s): [id number] cc: Marilia Castillo MD Reason for Exam: CERVICALGIA, PARATHESIA OF SKIN, HEADACHE EVAL FOR MS, PIT HOROMONE EXAMINATION: MR BRAIN WITHOUT THEN WITH IV CONTRAST CLINICAL INFORMATION: CERVICALGIA, PARATHESIA OF SKIN, HEADACHE EVAL FOR MS, PIT HOROMONE COMPARISON: Head CT on April 20, 2019 TECHNIQUE: Multiplanar, multisequence MRI of the brain was obtained prior to and following intravenous administration of 3.5 cc of gadolinium Gadavist. FINDINGS: Sella: Pituitary gland is normal in size, with flat superior surface. Mildly heterogeneous enhancement, but no discrete mass. Infundibulum is midline. No mass effect on the optic nerves or optic chiasm. Cavernous sinuses appear normal. Brain parenchyma: No shift of midline structures, evidence of acute infarct, mass lesion or parenchymal hemorrhage. No white matter lesions suggestive of multiple sclerosis. No abnormal parenchymal enhancement following administration of intravenous contrast. 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 Ventricles/extra-axial CSF spaces: No hydrocephalus or extra-axial fluid collection. Extracranial structures: Arterial flow voids in the skull base are preserved. Bilateral orbital globes are unremarkable. Paranasal sinuses and mastoid air cells are clear. MR/MR head/brain wo/w con IMPRESSION: 1. No acute intracranial findings. 2. No white matter lesions to suggest multiple sclerosis. 3. No focal pituitary gland lesions. Electronically signed by: Kayli Michele MD 02/02/2025 03:10 PM [facility] Dictated By: Kayli Michele MD Signed By: <Electronically signed by Kayli Michele MD in OV> 02/02/25 1510 DD/ 1257 TD/TT: 02/02/25 1412 Data Science And Iot Manager: Procedure Note Donotuseinterpreter, Image - 02/02/[address] [address] Magnetic Resonance Report Signed Patient: Vi Garner NMR# : [id number] : 2005Acct:[id number] Age/Sex: 19 / FADM Date: 02/02/25 Loc: HO.MRI Attending Dr: Marilia Castillo MD Ordering Physician: Marilia Castillo MD Date of Service: 02/02/25 Procedure(s): MR head/brain wo/w con Accession Number(s): [id number] cc: Marilia Castillo MD Reason for Exam: CERVICALGIA, PARATHESIA OF SKIN, HEADACHE EVAL FOR MS,PIT HOROMONE EXAMINATION: MR BRAIN WITHOUT THEN WITH IV CONTRAST CLINICAL INFORMATION: CERVICALGIA, PARATHESIA OF SKIN, HEADACHE EVAL FOR MS, PIT HOROMONE COMPARISON: Head CT on April 20, 2019 TECHNIQUE: Multiplanar, multisequence MRI of the brain was obtained prior to and following intravenous administration of 3.5 cc of gadolinium Gadavist. FINDINGS: Sella: Pituitary gland is normal in size, with flat superior surface. Mildly heterogeneous enhancement, but no discrete mass. Infundibulum is midline. No mass effect on the optic nerves or optic chiasm. Cavernous sinuses appear normal. Brain parenchyma: No shift of midline structures, evidence of acute infarct, mass lesion or parenchymal hemorrhage. No white matter lesions suggestive of multiple sclerosis. No abnormal parenchymal enhancement following administration of intravenous contrast. 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 Ventricles/extra-axial CSF spaces: No hydrocephalus or extra-axial fluid collection. Extracranial structures: Arterial flow voids in the skull base are preserved. Bilateral orbital globes are unremarkable. Paranasal sinuses and mastoid air cells are clear. MR/MR head/brain wo/w con IMPRESSION: 1. No acute intracranial findings. 2. No white matter lesions to suggest multiple sclerosis. 3. No focal pituitary gland lesions. Electronically signed by: Kayli Michele MD 02/02/2025 03:10 PM [facility] Dictated By: Kayli Michele MD Signed By: <Electronically signed by Kayli Michele MD in OV> 02/02/25 1510 DD/ 1257 TD/TT: 02/02/25 1412 Data Science And Iot Manager: us Marilia Castillo MD IMG MRI PROCEDURES Final Result * US Pelvis Transvaginal (01/05/2025 2:34 PM EDT) Anatomical Region Laterality Modality Pelvis Ultrasound 01/05/2025 2:34 PM EDT Narrative 01/05/2025 2:59 PM EDT [place] [address] Ultrasound Report Signed Patient: Vi Garner MR# : [id number] : 2005 Acct:[id number] Age/Sex: 19 / F ADM Date: 01/05/25 Loc: HO.US Attending Dr: Serjio Bauer CNM Ordering Physician: SERJIO BAUER CNM Date of Service: 01/05/25 Procedure(s): US pelvic and transvaginal Accession Number(s): [id number] cc: SERJIO BAUER CNM; Marilia Castillo MD [...] 01/05/25 1456 DD/ 1434 TD/TT: 01/05/25 1443 Data Science And Iot Manager: Procedure Note Donotuseinterpreter, Image - 01/05/2025 [place] [address] Ultrasound Report Signed Patient: Vi Garner [facility]# : [id number] : 2005Acct:[id number] Age/Sex: 19 / FADM Date: 01/05/25 Loc: . Attending Dr: Serjio Bauer CNM Ordering Physician: SERJIO BAUER CNM Date of Service: 01/05/25 Procedure(s): US pelvic and transvaginal Accession Number(s): [id number] cc: SERJIO BAUER CNM; Marilia Castillo MD [...] 01/05/25 1456 DD/ 1434 TD/TT: 01/05/25 1443 Data Science And Iot Manager: Serjio Bauer [facility] IM US PROCEDURES Final R esult * Mycoplasma/Ureaplasma??Panel (12/09/2024 10:30 AM EDT) Sureswab(R), Mycoplasma Hominis, Real-Time Pcr Not Detected Not Detected [facility] Comment:THIS TEST WAS PERFOR MED AT:[facility] [id number] [place] [address]HVAKXTIMICHAEL MCELROY MD,PHD Mycoplasma Genitalium, rRNA,TMA Not Detected Not Detected [facility] Comment:THIS TEST WAS PERFOR MED AT:[facility] [id number] [place] [address]EPMMRUVMICHAEL MCELROY MD,PHD U. Parvum DNA Not Detected Not Detected [facility] U. Urealyticum DNA Not Detected Not Detected [facility] Comment:This test was develo ped and its analyticalperformance characteristics have been determinedby [employer] [place], [place].It has not been cleared or approved by the FDA. Thisassay has been validated pursuant to the CLIAregulations and is used for clinical purposes.THIS TEST WAS PERFORMED AT:[facility] [id number] [place] [address]GXRVXCBMICHAEL MCELROY MD,PHD 12/09/2024 10:3 0 AM EDT 12/09/2024 6:12 PM EDT Serjio [facility] MICROBIOLOGY - GENERA L ORDERABLES Final Result [facility] [address] [place] [phone] * Testosterone, Total, males (Adult), IA (12/09/2024 10:23 AM EDT) [facility] Testosterone, Total 25 2 - 45 ng/dL [facility] Comment:For additional infor mation, please refer tohttp://education.Drimmi/faq/DlzkuNmaxbpyynnsdUIGDQKLZO773(This link is being provided for informational/educational purposes only.)This test was developed and its analytical performancecharacteristics have been determined by [employer] [place], [place]. It hasnot been cleared or approved by the U.S. Food and DrugAdministration. This assay has been validated pursuantto the CLIA regulations and is used for clinicalpurposes.THIS TEST WAS PERFORMED AT:[facility] [id number] [place] [address]IKPBXGLMICHAEL MCELROY MD,PHD Blood Venous blood specimen / Unknown 12/09/2024 10:23 AM EDT 12/09/2024 11:45 AM EDT Serjio Bauer [facility] BLOOD ORDERABLES Danni l Result Performing Organization Address [facility] Co de Phone Number [facility] [address] [place] [address] [phone] * POCT , urine manually resulted (12/09/2024 9:55 AM EDT) [facility] Preg Test, Ur Negative Negative, Indeterminate, None Detected, Invalid, Specimen unsatisfactory for evaluation, Weakly Positive, 2+ QC Media Lot # [id number] Lot# Expiration Date [id number] Urine 12/09/2024 9:55 AM EDT Serjio Bauer CNM POINT OF CARE TEST ENTER/ EDIT ORDERABLES Final Result * TSH W/Reflex to FT4 (11/25/2024 10:43 AM EDT) [facility] TSH reflex Free T4 1.40 0.32 - 4.0 uIU/mL [facility] Blood Venous blood specimen / Unknown 11/25/2024 10:43 AM EDT 11/25/2024 11:49 AM EDT Amarjit Echevarria MD LAB BLOOD ORDERABLES Final Resu lt Performing Organization Address [facility] Co de Phone Number [facility] [address] [place] [phone] * (ABNORMAL) CBC auto differential (11/25/2024 10:43 AM EDT) [facility] White Blood Count 7.1 4.8 - 10.8 X10*3/uL [facility] Red Blood Count 4.16(L) 4.20 - 5.50 X10*6/uL [facility] Hemoglobin 12.5 12.0 - 16.0 g/dl [facility] Hematocrit 37.3 37.0 - 47.0 % [facility] Mean Corpuscular Volume 89.7 80.0 - 98.0 fL [facility] Mean Corpuscular Hemoglobin 30.0 27.0 - 33.0 pg [facility] Mean Corpuscular HGB Conc 33.5 31.0 - 35.0 g/dl [facility] Red Cell Distribution Width 11.9 11.0 - 16.0 % [facility] Platelet Count 282 160 - 400 X10*3/uL [facility] Mean Platelet Volume 9.3(L) 9.4 - 12.3 fL [facility] Neutrophils Percent Auto 58.1 45 - 73 % [facility] Imm Gran Pct Auto 0.1 0.0 - 0.4 % [facility] Lymphocytes Percent Auto 30.6 20 - 40 % [facility] Monocytes Percent Auto 8.8 2 - 11 % [facility] Eosinophils Percent Auto 1.6 0 - 4 % [facility] Basophils Percent Auto 0.8 0 - 2 % [facility] NRBC Pct Auto 0.0 0.0 - 0.2 /100WBC [facility] Neutrophils Absolute Auto 4.1 2.0 - 8.3 x10*3/uL [facility] Imm Gran Abs Auto 0.01 0.00 - 0.03 X10*3/uL [facility] Lymphocytes Absolute Auto 2.2 1.2 - 4.9 X10*3/uL [facility] Monocytes Absolute Auto 0.6 0.1 - 1.2 X10*3/uL [facility] Eosinophils Absolute Auto 0.1 0.0 - 0.4 X10*3/uL [facility] Basophils Absolute Auto 0.1 0.0 - 0.2 X10*3/uL [facility] NRBC Abs Auto 0.000 0.0 - 0.012 X10*3/uL [facility] Blood Venous blood specimen / Unknown 11/25/2024 10:43 AM EDT 11/25/2024 11:49 AM EDT us Amarjit Echevarria MD LAB BLOOD ORDERABLES Final Resu lt [facility] [address] [place] [phone] [phone] * (ABNORMAL) Testosterone, Free, Bioavailable And Total MS (11/25/2024 10:43 AM EDT) Testosterone, Total, MS 80(A) 2 - 45 ng/dL [facility] Comment:For additional infor danilo, please refer tohttp://education.Drimmi/faq/ZjzdmCzyrhkktufzgTGHTNAHEE182(This link is being provided for informational/educational purposes only.)This test was developed and its analytical performancecharacteristics have been determined by [employer] [place], [place]. It hasnot been cleared or approved by the U.S. Food and DrugAdministration. This assay has been validated pursuantto the CLIA regulations and is used for clinicalpurposes. Testosterone, Free 6.6(A) 0.2 - 5.0 pg/mL [facility] Testosterone,Bioavailable 12.7(A) 0.5 - 8.5 ng/dL [facility] Sex Hormone Binding Globulin 52 17 - 124 nmol/L [facility] Albumin 4.2 3.6 - 5.1 g/dL [facility] Comment:THIS TEST WAS PERFOR MED AT:[id number] [place] [address]GHORFDQMICHAEL MCELROY MD,PHD Blood Venous blood specimen / Unknown 11/25/2024 10:43 AM EDT 11/25/2024 11:49 AM EDT us Amarjit Echevarria MD LAB BLOOD ORDERABLES Final Resu lt [facility] [address] [place] [phone] * (ABNORMAL) Mononucleosis Test, Qualitative (11/25/2024 10:43 AM EDT) Monotest Positive(A) Negative [facility] Blood Venous blood specimen / Unknown 11/25/2024 10:43 AM EDT 11/25/2024 11:49 AM EDT us Amarjit Echevarria MD LAB BLOOD ORDERABLES Final Resu lt Performing Organization Address [facility] Co de Phone Number [facility] [address] [place] [phone] * Sed Rate by Modified [place] (11/25/2024 10:43 AM EDT) Erythrocyte Sedimentation Rate 7 0 - 20 MM/HR [facility] Comment:Patients with polycy themia and many hemoglobin abnormalitiesmay have depressed sed rates whereas patients with anemiamay have elevated sed rates. Blood Venous blood specimen / Unknown 11/25/2024 10:43 AM EDT 11/25/2024 11:49 AM EDT us Amarjit Echevarria MD LAB BLOOD ORDERABLES Final Resu lt Performing Organization Address [facility] Co de Phone Number [facility] [address] [place] [phone] * C-reactive Protein (11/25/2024 10:43 AM EDT) Pathologist [facility] C Reactive Protein <0.10 < or = 0.50 mg/dL [facility] Blood Venous blood specimen / Unknown 11/25/2024 10:43 AM EDT 11/25/2024 11:49 AM EDT us Amarjit Echevarria MD LAB BLOOD ORDERABLES Final Resu lt Performing Organization Address [facility] Co de Phone Number [facility] [address] [place] [phone] * Creatine Kinase, Total (11/25/2024 10:43 AM EDT) Creatine Kinase Total 67 26 - 140 U/L [facility] Blood Venous blood specimen / Unknown 11/25/2024 10:43 AM EDT 11/25/2024 11:49 AM EDT us Amarjit Echevarria MD LAB BLOOD ORDERABLES Final Resu lt [facility] [address] [place] [phone] * (ABNORMAL) Comprehensive Metabolic Panel (11/25/2024 10:43 AM EDT) Sodium 142 135 - 145 mmol/L [facility] Potassium 3.8 3.3 - 5.1 mmol/L [facility] Chloride 106 96 - 108 mmol/L [facility] Carbon Dioxide 31(H) 22 - 29 mmol/L [facility] Anion Gap 9(L) 12 - 20 [facility] Urea Nitrogen (BUN) 10 9 - 16 mg/dL [facility] Creatinine, Serum 0.73 0.5 - 1.4 mg/dL [facility] Estimated Glomerular Filt Rate >60 [facility] Comment:Chronic Kidney Disea se: Estimated GFR < 60 mL/min/1.92m3Wisljd Kidney Disease: Estimated GFR < 15 mL/min/1.73m2 Glucose 88 60 - 115 mg/dL [facility] Calcium 9.1 8.4 - 10.2 mg/dL [facility] Bilirubin, Total 0.4 0.0 - 1.0 mg/dL [facility] Aspartate Amino Transferase 26 5 - 31 U/L [facility] Alanine Aminotransferase 29 0 - 31 U/L [facility] Total Protein 7.1 6.5 - 8.0 g/dL [facility] Albumin Level 4.1 3.5 - 5.0 g/dL [facility] Alkaline Phosphatase 72 39 - 117 U/L [facility] Blood Venous blood specimen / Unknown 11/25/2024 10:43 AM EDT 11/25/2024 11:49 AM EDT us Amarjit Echevarria MD LAB BLOOD ORDERABLES Final Resu lt [facility] [address] [place] [phone] * US Abdomen Limited (11/04/2024 10:40 AM EDT) Anatomical Region Laterality Modality Abdomen Ultrasound 11/04/2024 10:4 0 AM EDT Narrative 11/04/2024 10:57 AM EDT [address] [address] Ultrasound Report Signed Patient: Vi Garner MR# : [id number] : 2005 Acct:[id number] Age/Sex: 19 / F ADM Date: 11/04/24 Loc: HO.US Attending Dr: Pinky Bueno MD Ordering Physician: Pinky Bueno MD Date of Service: 11/04/24 Procedure(s): US abdomen limited Accession Number(s): [id number] cc: Pinky Bueno MD; Marilia Castillo MD [...] 11/04/24 1054 DD/ 1040 TD/TT: 11/04/24 1044 Data Science And Iot Manager: Procedure Note Donotuseinterpreter, Image - 11/04/[address] [address] Ultrasound Report Signed Patient: Vi Garner [facility]# : [id number] : 2005Acct:[id number] Age/Sex: 19 / FADM Date: 11/04/24 Loc: .US Attending Dr: Pinky Bueno MD Ordering Physician: Pinky Bueno MD Date of Service: 11/04/24 Procedure(s): US abdomen limited Accession Number(s): [id number] cc: Pinky Bueno MD; Marilia Castillo MD [...] 11/04/24 1054 DD/ 1040 TD/TT: 11/04/24 1044 Data Science And Iot Manager: us Pinky Bueno MD IMG US PROCEDURES Final Result * Chlamydia/N. Gonorrhoeae RNA, TMA, Urogenitial (10/02/2024 12:56 PM EDT) CT PCR NOT DETECTED Not Detect. [facility] Comment:A not detected test result [...] psychologicalconsequences. NG PCR NOT DETECTED Not Detect. [facility] Comment:A not detected test result [...] EDT Pinky Bueno MD LAB MICROBIOLOGY - [facility] ORDERABLES Final Result [facility] [address] [place] [phone] * Hepatitis C Antibody with Reflex to HCV, RNA, Quantitative, Real-Time PCR (03/27/2023 10:37 AM EST) Hepatitis C Antibody Nonreactive Nonreactive [facility] Comment:Antibodies to HCV no t detected; does not exclude early acuteHCV infection. Blood Venous blood specimen / Unknown 03/27/2023 10:37 AM EST 03/27/2023 11:48 AM EST us Marilia Castillo MD LAB BLOOD ORDERABLES Final Resul t Performing Organization Address [facility] Co de Phone Number [facility] [address] [place] [phone] * HIV-1/2 Antigen and Antibodies, Fourth Generation, with Reflexes (03/27/2023 10:37 AM EST) HIV AB/AG Nonreactive Nonreactive [facility] Comment:HIV-1 p24 Ag and/or HIV-1/HIV-2 Ab not detected.A test result that is nonreactive does not exclude thepossibility of exposure to or infection with HIV-1 and/orHIV-2. Nonreactive results in this assay for individualswith prior exposure to HIV-1 and/or HIV-2 may be due toantigen and antibody levels that are below the limit ofdetection of this assay.The Buf[employer] HIV Ag/Ab Combo assay result andsupplemental assay results should be interpreted inconjunction with the patient's clinical presentation,history and other laboratory results. If the results areinconsistent with clinical evidence, additional testing issuggested to confirm the result. Blood Venous blood specimen / Unknown 03/27/2023 10:37 AM EST 03/27/2023 11:48 AM EST us Marilia Castillo MD LAB BLOOD ORDERABLES Final Resul t Performing Organization Address City/[facility]/ZIP Co de Phone Number [facility] [address] [place] [phone] from Last 3 Months or Most Recently Relevant to Health Maintenance Insurance [facility] Care Teams Sanding Supervisor Relationship Specialty Start Date End Date Marilia Castillo MD [address] [place] [phone] PCP - General Family Medicine 03/27/23
--- OUTSIDE RECORDS SUMMARY | 2025-02-02 15:57 | XMS_ITS | Encounter Summary ---
Author Organization [employer] Address [address] 7[address] [place] [address] Care Team Providers Care Head Strength And Conditioning Coach Name Role Phone Marilia Castillo MD Primary Care Provider [phone] Reason for Visit * Reason Onset Date Comments Nurse Triage 11/22/2024 Encounter Details Date Type Department Care Team ([facility] st Contact Info) Description 11/22/2024 Telephone [facility] [address] [place], [place] [phone] Marilia Castillo MD [address] [place], [place] [phone] Nurse Triage Social History Tobacco Use Types [...] Pt. Pt is advised to come to [facility] open till 8pm today, 830am -800pm [...] Reason: Getting worse Please contact pt at [phone]. documented in this encounter Plan of Treatment Upcoming Encounters Date Type Department Care Team (Late st Contact Info) Description 03/14/2025 10:00 AM EST Office Visit [facility] [address] [place] [phone] Marilia Castilol MD [address] [place] [address] [phone] documented as of this encounter Visit Diagnoses Not on filedocumented in this encounter Additional Health Concerns Assessment Noted Time PHQ-9 Depression Total Score: 0 09/14/19 25 9:20 AM EDT documented as of this encounter Care Teams Head Strength And Conditioning Coach Relationship Specialty Start Date End Date Marilia Castillo MD [address] [place] [phone] PCP - General Family Medicine 03/27/23 documented as of this encounter
--- OUTSIDE RECORDS SUMMARY | 2025-02-02 15:57 | XMS_ITS | Clinical Summary ---
Author Organization [facility] Address [address] [place] [phone] Phone Care Team Providers Care Diamond Die Polisher Name Role Phone Unavailable Primary Care Provider [...] Other No family histo ry of *Sudden /[place] under 55, No family history of ADD/ADHD, [...] HPV Vaccines Completed 04/25/2016, 12/08, 10/17/2015 Insurance [facility] NON PCC Member Subscriber Plan / Payer (Ef fective 2016-Present) Name:Vi Putnam Relation to Subscriber:Self Name:Vi Putnam Payer ID:Not on file Group ID:Not on file Type:Medicaid Address: [address] COMMER[employer]
--- OUTSIDE RECORDS SUMMARY | 2025-02-02 15:57 | XMS_ITS | Encounter Summary ---
Author Organization [employer] Address [address] 7t [place] [address] Care Team Providers Care Pamphlet Distributor Name Role Phone Marilia Castillo MD Primary Care Provider [phone] Reason for Visit * Reason Onset Date Comments february recall 02/01/2025 Encounter Details Date Type Department Care Team ([facility] st Contact Info) Description 02/01/2025 Telephone [facility] [address] [place] [address] Marilia Castillo MD [address] [place] [address] february Social History Tobacco Use Types Packs/Day Years [...] Q2 Not on file 12/29/2024 Comments No Sex and Gender Information Value Date Recorded Sex Assigned at Female 12/05/2022 1:28 PM EDT Legal Sex Female 1:24 PM EDT Gender Identity Female 12/05/2022 1:28 PM EDT Sexual Orientation Don't know 01/01/2023 2: 23 PM EDT documented as of this encounter Miscellaneous Notes * Telephone Encounter - Amber Jacome [place] - 02/01/2025 10:42 AM EST ..Telephone call to patient to schedule the following recall: Visit type: Follow up Appointment notes: RV NIXON / dizziness / vaginal discharge. Patient agree to appointment on 03/14 at 10 AM with Anna. documented in this encounter Plan of Treatment Upcoming Encounters Date Type Department Care Team (Late st Contact Info) Description 03/14/2025 10:00 AM EST Office Visit [facility] [address] [place] [address] Marilia Castillo MD [address] [place] [address] documented as of this encounter Visit Diagnoses Not on filedocumented in this encounter Additional Health Concerns Assessment Noted Time PHQ-9 Depression Total Score: 0 09/14/19 9:20 AM EDT documented as of this encounter Care Teams Pamphlet Distributor Relationship Specialty Start Date End Date Marilia Castillo MD [address] [place] [address] PCP - General Family Medicine 03/27/23 documented as of this encounter
--- OUTSIDE RECORDS SUMMARY | 2025-02-02 15:57 | XMS_ITS | Encounter Summary ---
Author Organization [facility] Address [address] [place] [phone] Phone Care Team Providers Care Machine Boss Name Role Phone Tiffanie Caputo NP Primary Care Provider Jane horton Encounter Details Date Type Department Care Team (Late st Contact Info) Description 07/28/2009 Documentation [facility] [place] [address] [place] [address] Family Medicine, Physician [address] [place] [address] Social History Tobacco Use Types Packs/Day Years [...] on filedocumented in this encounter Care Teams Machine Boss Relationship Specialty Start Date End Date Tiffanie Caputo NP PCP - General 10/18/16 06/19/22 documented as of this encounter
--- OUTSIDE RECORDS SUMMARY | 2025-02-02 15:57 | XMS_ITS | Encounter Summary ---
Author Organization [facility] Address [address] [place] [phone] Phone Care Team Providers Care Commercial Loan Closer Name Role Phone Tiffanie Caputo NP Primary Care Provider Jane horton Encounter Details Date Type Department Care Team (Late st Contact Info) Description 06/25/2013 Documentation [facility] [place] [address] [place] [address] Family Medicine, Physician [facility] [place] [address] Social History Tobacco Use Types Packs/Day Years [...] on filedocumented in this encounter Care Teams Commercial Loan Closer Relationship Specialty Start Date End Date Tiffanie Caputo NP PCP - General 10/18/16 06/19/22 documented as of this encounter
--- OUTSIDE RECORDS SUMMARY | 2025-02-02 15:57 | XMS_ITS | Encounter Summary ---
Author Organization [employer] Address [address] [facility] 7t [place] [address] Care Team Providers Care Blood Donor Unit Assistant Name Role Phone Marilia Castillo MD Primary Care Provider [phone] Reason for Visit * Reason Comments Med Refill Encounter Details Date Type Department Care Team ([facility] st Contact Info) Description 02/15/2024 Refill [facility] [address] [place] [address] Maggie Gonzalez MD [address] [place] [address] Social History Tobacco Use Types Packs/Day Years [...] your housing situation today? I have radha fatiam 12/30/[address] you li [...] Description 03/14/2025 10:00 AM EST Office Visit [facility] [address] [place] [address] Marilia Castillo MD [address] [place] [address] documented as of this encounter Visit Diagnoses Not on filedocumented in this encounter Additional Health Concerns Assessment Noted Time PHQ-9 Depression Total Score: 0 03/27/19 9:28 AM EST documented as of this encounter Care Teams Blood Donor Unit Assistant Relationship Specialty Start Date End Date Marilia Castillo MD [address] [place] [phone] PCP - General Family Medicine 03/27/23 documented as of this encounter
--- OUTSIDE RECORDS SUMMARY | 2025-02-02 15:57 | XMS_ITS | Encounter Summary ---
Author Organization [facility] Address [address] [place] [phone] Phone Care Team Providers Care X Ray Operator Name Role Phone Tiffanie Caputo PORTABLE CANTEEN OPERATOR Primary Care Provider Jane horton Encounter Details Date Type Department Care Team (Late st Contact Info) Description 10/24/2016 Conversion Encounter [facility] - [address] [address] Social History Tobacco Use Types Packs/Day Years [...] on filedocumented in this encounter Care Teams X Ray Operator Relationship Specialty Start Date End Date Tiffanie Caputo NP PCP - General 10/18/16 06/19/22 documented as of this encounter
--- OUTSIDE RECORDS SUMMARY | 2025-02-02 15:57 | XMS_ITS | Encounter Summary ---
Author Organization [employer] Address [address] [facility] 7t [place] [address] Care Team Providers Care Surgical Nurse Practitioner Name Role Phone Marilia Castillo MD Primary Care Provider [phone] Reason for Visit * Reason Onset Date Comments Med Refill 07/01/2023 Encounter Details Date Type Department Care Team (Late st Contact Info) Description 07/01/2023 Refill [facility] [address] [place] [address] Maggie Gonzalez MD [address] [place] [address] Social History Tobacco Use Types Packs/Day Years [...] Description 03/14/2025 10:00 AM EST Office Visit [facility] [address] [place] [address] Marilia Castillo MD [address] [place] [address] documented as of this encounter Visit Diagnoses Not on filedocumented in this encounter Additional Health Concerns Assessment Noted Time PHQ-9 Depression Total Score: 0 03/27/19 9:28 AM EST documented as of this encounter Care Teams Surgical Nurse Practitioner Relationship Specialty Start Date End Date Marilia Castillo MD [address] [place] [phone] PCP - General Family Medicine 03/27/23 documented as of this encounter
--- OUTSIDE RECORDS SUMMARY | 2025-02-02 15:57 | XMS_ITS | Encounter Summary ---
Author Organization [employer] Address [address] 7[address] [place] [address] Care Team Providers Care Income Tax Analyst Name Role Phone Marilia Castillo MD Primary Care Provider [phone] Encounter Details Date Type Department Care Team ([facility] st Contact Info) Description 03/29/2023 Orders Only [facility]INE [address] [place], [place] [phone] Marilia Castillo MD [address] [place], [place] [phone] Irregular menstruation (Primary Dx) Social History Tobacco [...] Description 03/14/2025 10:00 AM EST Office Visit [facility] [address] [place], [place] [phone] Marilia Castillo MD [address] [place], [place] [phone] documented as of this encounter Procedures Procedure [...] EST) Lipase 30 8 - 78 U/L [facility] 05/16/2023 5:03 AM EST 05/16/2023 5:07 AM EST Generic External Data Provider LAB BLOOD ORDERAB LES Final Result Performing Organization Address [facility] Co de Phone Number [facility] [address] [place] [phone] * Hepatic Function Panel (05/16/2023 5:03 AM EST) [facility] Bilirubin, Total 0.4 0.0 - 1.0 mg/dL [facility] Bilirubin, Direct 0.1 0.0 - 0.5 mg/dL [facility] Aspartate Amino Transferase 20 5 - 31 U/L [facility] Alanine Aminotransferase 18 0 - 31 U/L [facility] Total Protein 7.1 6.5 - 8.0 g/dL [facility] Albumin Level 4.0 3.5 - 5.0 g/dL [facility] Alkaline Phosphatase 87 39 - 117 U/L [facility] 05/16/2023 5:03 AM EST 05/16/2023 5:07 AM EST [employer] External Data Provider LAB BLOOD ORDERAB LES Final Result Performing Organization Address [facility] Phone Number [facility] [address] [place] [phone] * (ABNORMAL) Basic Metabolic Panel (05/16/2023 5:03 AM EST) [facility] Sodium 141 135 - 145 mmol/L [facility] Potassium 3.9 3.3 - 5.1 mmol/L [facility] Chloride 105 96 - 108 mmol/L [facility] Carbon Dioxide 29 22 - 29 mmol/L [facility] Anion Gap 11(L) 12 - 20 [facility] Urea Nitrogen (BUN) 14 9 - 16 mg/dL [facility] Creatinine, Serum 0.67 0.5 - 1.4 mg/dL [facility] Creatinine Clr Calc Pharmacy TNP [facility] Comment:Cannot be calculated ; patient is less than 19 years old. Estimated Glomerular Filt Rate >60 [facility] Comment:NOTE: For -Am erican individuals, multiply the result by 1.210.Chronic Kidney Disease: Estimated GFR < 60 mL/min/1.27w5Dermlq Kidney Disease: Estimated GFR < 15 mL/min/1.73m2 Glucose 88 60 - 115 mg/dL [facility] Calcium 9.3 8.4 - 10.2 mg/dL [facility] 05/16/2023 5:03 AM EST 05/16/2023 5:07 AM EST us Generic External Data Provider LAB BLOOD ORDERAB LES Final Result Performing Organization Address City/[facility]/ZIP Co de Phone Number [facility] [address] [place] [phone] * HCG, Qualitative, Urine (05/16/2023 5:03 AM EST) Urine NEGATIVE NEGATIVE [facility] Comment:This test was develo ped to detect early . Falsenegative results may occur after the 5th - 7th week ofpregnancy when using this test method. If clinicallyindicated, consider a serum hCG. 05/16/2023 5:03 AM EST 05/16/2023 5:07 AM EST us Generic External Data Provider LAB URINE ORDERAB LES Final Result Performing Organization Address [facility]/ZIP Co de Phone Number [facility] [address] [place] [phone] * Urinalysis w/reflex microscopic (05/16/2023 5:03 AM EST) Color Urine Yellow [facility] Appearance Urine Turbid [facility] PH 8.5 5.0 - 9.0 [facility] Glucose Urine UA Negative Negative mg/dL [facility] Urine Blood Negative Negative [facility] Specific [place] - Urine 1.020 1.005 - 1.025 [facility] Urine Protein Negative Neg-Trace mg/dL [facility] Urine Ketones Negative Negative mg/dL [facility] Nitrite Urine Negative Negative [facility] Leukocyte Esterase Urine Negative Negative [facility] 05/16/2023 5:03 AM EST 05/16/2023 5:07 AM EST Narrative [facility] - 05/16/2023 5:12 AM EST [id number], Clean Catch us Generic External Data Provider LAB URINE ORDERAB LES Final Result [facility] [address] [place] [address] [phone] * (ABNORMAL) CBC auto differential (05/16/2023 5:03 AM EST) White Blood Count 10.9(H) 4.8 - 10.8 X10*3/uL [facility] Red Blood Count 4.46 4.20 - 5.50 X10*6/uL [facility] Hemoglobin 13.1 12.0 - 16.0 g/dl [facility] Hematocrit 39.0 37.0 - 47.0 % [facility] Mean Corpuscular Volume 87.4 80.0 - 98.0 fL [facility] Mean Corpuscular Hemoglobin 29.4 27.0 - 33.0 pg [facility] Mean Corpuscular HGB Conc 33.6 31.0 - 35.0 g/dl [facility] Red Cell Distribution Width 12.1 11.0 - 16.0 % [facility] Platelet Count 277 160 - 400 X10*3/uL [facility] Mean Platelet Volume 8.9(L) 9.4 - 12.3 fL [facility] Neutrophils Percent Auto 60.6 45 - 73 % [facility] Imm Gran Pct Auto 0.2 0.0 - 0.4 % [facility] Lymphocytes Percent Auto 29.1 20 - 40 % [facility] Monocytes Percent Auto 7.9 2 - 11 % [facility] Eosinophils Percent Auto 1.8 0 - 4 % [facility] Basophils Percent Auto 0.4 0 - 2 % [facility] NRBC Pct Auto 0.0 0.0 - 0.2 /100WBC [facility] Neutrophils Absolute Auto 6.6 2.0 - 8.3 x10*3/uL [facility] Imm Gran Abs Auto 0.02 0.00 - 0.03 X10*3/uL [facility] Lymphocytes Absolute Auto 3.2 1.2 - 4.9 X10*3/uL [facility] Monocytes Absolute Auto 0.9 0.1 - 1.2 X10*3/uL [facility] Eosinophils Absolute Auto 0.2 0.0 - 0.4 X10*3/uL [facility] Basophils Absolute Auto 0.0 0.0 - 0.2 X10*3/uL [facility] NRBC Abs Auto 0.000 0.0 - 0.012 X10*3/uL [facility] 05/16/2023 5:03 AM EST 05/16/2023 5:07 AM EST us Generic External Data Provider LAB BLOOD ORDERAB LES Final Result Performing Organization Address City/State/[facility] Co de Phone Number [facility] [address] [place] [phone] * US Pelvis Transvaginal (04/24/2023 12:01 PM EST) Anatomical Region Laterality Modality Pelvis Ultrasound 04/24/2023 12:0 1 PM EST Narrative 04/25/2023 1:02 PM EST [address] [address] Ultrasound Report Signed Patient: Vi Garner MR# : [id number] : 2005 Acct:[id number] Age/Sex: 17 / F ADM Date: 04/24/23 Loc: HO.US Attending Dr: Marilia Castillo MD Ordering Physician: Marilia Castillo MD Date of Service: 04/24/23 Procedure(s): US pelvic and transvaginal Accession Number(s): [id number] cc: Marilia Castillo MD EXAMINATION: US PELVIS [...] in OV> 04/25/23 1258 DD/ 1201 TD/TT: Chartered Wealth Manager: [facility] Procedure Note Donotuseinterpreter, Image - 04/25/[address] [address] Ultrasound Report Signed Patient: Vi Garner [facility]# : [id number] : 2005Acct:[id number] Age/Sex: 17 / FADM Date: 04/24/23 Loc: HO.US Attending Dr: Marilia Castillo MD Ordering Physician: Marilia Castillo MD Date of Service: 04/24/23 Procedure(s): US pelvic and transvaginal Accession Number(s): [id number] cc: Marilia Castillo MD EXAMINATION: US PELVIS [...] in OV> 04/25/23 1258 DD/ 1201 TD/TT: Chartered Wealth Manager: POONAM Marilia Castillo MD IMG US PROCEDURES Edited Result - Final documented in this encounter Visit Diagnoses Diagnosis Irregular menstruation- Primary Irregular menstrual cycle documented in this encounter Additional Health Concerns Assessment Noted Time PHQ-9 Depression Total Score: 0 03/27/19 9:28 AM EST documented as of this encounter Care Teams Income Tax Analyst Relationship Specialty Start Date End Date Marilia Castillo MD [address] [place] [address] PCP - General Family Medicine 03/27/23 documented as of this encounter
--- OUTSIDE RECORDS SUMMARY | 2025-02-02 15:57 | XMS_ITS | Encounter Summary ---
Author Organization [employer] Address [address] [facility] 7t [place] [address] Care Team Providers Care Fiberglass Autobody Repairer Name Role Phone Marilia Castillo MD Primary Care Provider [phone] Reason for Visit * Reason Comments Med Refill Encounter Details Date Type Department Care Team ([facility] st Contact Info) Description 01/12/2024 Refill [facility] [address] [place] [address] Maggie Gonzalez MD [address] [place] [address] Social History Tobacco Use Types Packs/Day Years [...] Description 03/14/2025 10:00 AM EST Office Visit [facility] [address] [place] [address] Marilia Castillo MD [address] [place] [address] documented as of this encounter Visit Diagnoses Not on filedocumented in this encounter Additional Health Concerns Assessment Noted Time PHQ-9 Depression Total Score: 0 03/27/19 9:28 AM EST documented as of this encounter Care Teams Fiberglass Autobody Repairer Relationship Specialty Start Date End Date Marilia Castillo MD [address] [place] [address] PCP - General Family Medicine 03/27/23 documented as of this encounter
== END 2025-02-02 12:56 | disposition home or self-care (01) ==
LOC: HO.MRI 12:55
PROVIDERS: PCP Family Medicine; Visit Provider Family Medicine
DX: R20.2 Paresthesia of skin (principal); M54.2 Cervicalgia; R79.89 Other specified abnormal findings of blood chemistry; G44.89 Other headache syndrome; R53.83 Other fatigue; L56.8 Other specified acute skin changes due to ultraviolet radiation; R20.0 Anesthesia of skin
CPT/HCPCS: 70553; 72156; A9585